=== PATIENT | male | born 1980 | race Caucasian/White ===

== ENCOUNTER → 2019-04-15 10:54 | Outpatient (BNVA) | payer MEDICARE, MEDICAID, SELFPAY | PROVIDERS: Family Provider Nurse Practitioner Family; PCP Nurse Practitioner Family; Visit Provider Family Medicine | DX: Z13.6 Encounter for screening for cardiovascular disorders (principal); R56.9 Unspecified convulsions; E03.9 Hypothyroidism, unspecified; K21.0 Gastro-esophageal reflux disease with esophagitis | CPT/HCPCS: 36415; 80053; 80061; 84443; 85025 ==

== ENCOUNTER → 2019-04-18 14:46 | Outpatient (BNVA) | payer MEDICARE, BC, MEDICAID, SELFPAY | PROVIDERS: Family Provider Nurse Practitioner Family; PCP Nurse Practitioner Family; Visit Provider Psychiatry & Neurology Psychiatry | DX: F31.9 Bipolar disorder, unspecified (principal) | CPT/HCPCS: 99204; 99214 ==

== ENCOUNTER → 2019-04-20 09:40 | Outpatient (BNVA) | payer MEDICARE, MEDICAID, SELFPAY | PROVIDERS: Family Provider Nurse Practitioner Family; PCP Nurse Practitioner Family; Visit Provider Family Medicine | DX: R73.09 Other abnormal glucose (principal) | CPT/HCPCS: 83036 ==

== ENCOUNTER 2019-05-19 13:37 | Outpatient (RCR) | payer MEDICARE, MEDICAID, SELFPAY | END 2019-06-11 23:59 | disposition home or self-care (01) | LOC: SPT 13:37 | PROVIDERS: Family Provider Nurse Practitioner Family; PCP Nurse Practitioner Family; Referring Provider Family Medicine; Visit Provider Family Medicine | DX: G89.29 Other chronic pain (principal); M25.511 Pain in right shoulder | CPT/HCPCS: 97110; 97150; 97162 ==

== ENCOUNTER 2019-06-12 06:00 | Outpatient (RCR) | payer MEDICARE, MEDICAID, SELFPAY | END 2019-07-12 23:59 | disposition home or self-care (01) | LOC: SPT 06:00 | PROVIDERS: Family Provider Family Medicine; PCP Family Medicine; Referring Provider Family Medicine; Visit Provider Family Medicine | DX: M25.511 Pain in right shoulder (principal); G89.29 Other chronic pain | CPT/HCPCS: 97110 ==

== ENCOUNTER → 2019-06-16 10:45 | Outpatient (BNVA) | payer MEDICARE, MEDICAID, SELFPAY | PROVIDERS: Family Provider Nurse Practitioner Family; PCP Nurse Practitioner Family; Visit Provider Otolaryngology | DX: H66.014 Acute suppurative otitis media with spontaneous rupture of ear drum, recurrent, right ear (principal); H66.3X1 Other chronic suppurative otitis media, right ear; H91.91 Unspecified hearing loss, right ear; J34.89 Other specified disorders of nose and nasal sinuses | CPT/HCPCS: 99214 ==

== ENCOUNTER 2019-06-23 15:08 | Outpatient (CLI) | payer MEDICARE, MEDICAID, SELFPAY ==
--- NOTE | 2019-06-23 15:30 | CT_ITS ---
WS: [id number] CT TEMPORAL BONES TECHNIQUE: Noncontrast CT of the temporal bones with coronal and sagittal reformatted images. CLINICAL INFORMATION: otitis media COMPARISON: None. DLP: 1020.[address] scans at [facility] use at least one of these dose optimization techniques: automat ed exposure control; mA and/or kV adjustment per patient size (includes targeted exams where dose is matched to clinical indication); or iterative reconstruction. FINDINGS: Paranasal sinuses are well aerated. Trace mucosal thickening in the ethmoid air cells. Maxi llary sinuses are well aerated. Nasal septum is midline. Intracranial vascular calcification. A few i ncidental intraparotid lymph nodes. Normal posterior nasopharynx. Normal pterygopalatine fossa. RIGHT: Small amount of cerumen along the external auditory canal. Right external auditory canal otherwise no rmal. 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 Mastoid air cells are well aerated today. Mild thickening and retraction of the tympanic membrane. Ossicles are normal in appearance. Middle ea r is well aerated. Normal tegmen tympani. Semicircular canals and cochlea are normal in appearance. P russak's space is normal. Normal inner ear structures. Normal vestibular aqueduct. Facial nerve reces s is normal. LEFT: Mastoid air cells are well aerated. Normal external auditory canal. Ossicles are normal in appearance . Middle ear is well aerated. Normal tegmen tympani. Semicircular canals and cochlea are normal in ap pearance. Prussak's space is normal. Normal inner ear structures. Normal vestibular aqueduct. Facial nerve recess is normal. Visualized intracranial contents and posterior fossa are normal. CT/CT temporal bone wo con* [id number] IMPRESSION: 1. 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 Bilateral mastoid air cells are well aerated today. 2. Cerumen along the right external auditory canal. Right middle ear is well a erated. Mild thickening and retraction of the right tympanic membrane. 3. Left middle ear is well aerated with normal tympanic membrane. 4. Normal ossicles and inner ear structures bilaterally. 5. Paranasal sinuses are well aerated. 6. A few incidental intraparotid lymph nodes.
== END 2019-06-23 15:09 | disposition home or self-care (01) ==
LOC: CT 15:11
PROVIDERS: Family Provider Family Medicine; PCP Family Medicine; Visit Provider Otolaryngology
DX: H66.91 Otitis media, unspecified, right ear (principal); H61.21 Impacted cerumen, right ear
CPT/HCPCS: 70480

== ENCOUNTER → 2019-06-28 14:38 | Outpatient (BNVA) | payer MEDICARE, MEDICAID, SELFPAY | PROVIDERS: Family Provider Family Medicine; PCP Family Medicine; Visit Provider Family Medicine | DX: R56.9 Unspecified convulsions (principal) | CPT/HCPCS: 80177 ==

== ENCOUNTER → 2019-07-05 13:03 | Outpatient (BNVA) | payer MEDICARE, MEDICAID, SELFPAY | PROVIDERS: Family Provider Family Medicine; PCP Family Medicine; Visit Provider Otolaryngology | DX: H93.90 Unspecified disorder of ear, unspecified ear (principal); H66.014 Acute suppurative otitis media with spontaneous rupture of ear drum, recurrent, right ear; H66.3X1 Other chronic suppurative otitis media, right ear; H91.91 Unspecified hearing loss, right ear; J34.89 Other specified disorders of nose and nasal sinuses | CPT/HCPCS: 69210; 96372; 99214; J3301 ==

== ENCOUNTER → 2019-07-11 13:08 | Outpatient (BNVA) | payer MEDICARE, MEDICAID, SELFPAY | PROVIDERS: Family Provider Family Medicine; PCP Family Medicine; Visit Provider Psychiatry & Neurology Psychiatry | DX: F31.9 Bipolar disorder, unspecified (principal) | CPT/HCPCS: 99213 ==

== ENCOUNTER → 2019-08-03 08:25 | Outpatient (BNVA) | payer MEDICARE, MEDICAID, SELFPAY | PROVIDERS: Family Provider Family Medicine; PCP Family Medicine; Visit Provider Social Worker | DX: F31.9 Bipolar disorder, unspecified (principal); F70 Mild intellectual disabilities | CPT/HCPCS: 90834 ==

== ENCOUNTER → 2019-08-09 08:28 | Outpatient (BNVA) | payer MEDICARE, MEDICAID, SELFPAY | PROVIDERS: Family Provider Family Medicine; PCP Family Medicine; Visit Provider Social Worker | DX: F31.9 Bipolar disorder, unspecified (principal); F70 Mild intellectual disabilities | CPT/HCPCS: 90834 ==

== ENCOUNTER → 2019-08-17 09:12 | Outpatient (BNVA) | payer MEDICARE, MEDICAID, SELFPAY | PROVIDERS: Family Provider Family Medicine; Visit Provider Social Worker | DX: F31.9 Bipolar disorder, unspecified (principal); F70 Mild intellectual disabilities | CPT/HCPCS: 90834 ==

== ENCOUNTER → 2019-08-29 08:34 | Outpatient (BNVA) | payer MEDICARE, MEDICAID, SELFPAY | PROVIDERS: Family Provider Family Medicine; Visit Provider Social Worker | DX: F31.9 Bipolar disorder, unspecified (principal); F70 Mild intellectual disabilities | CPT/HCPCS: 90834 ==

== ENCOUNTER 2019-09-07 18:04 | Emergency (ER) | payer MEDICARE, MEDICAID, SELFPAY ==
[2019-09-07 18:16] VITALS: BP 155/104; PULSE 85; RESP 16; TEMP 36.6; O2SAT 97; BMI 31.7
--- NOTE | 2019-09-07 18:35 | W.ED.EXTPRO ---
HPI - Extremity Problem General: Chief complaint: Extremity Injury, Lower Stated complaint: fall Time Seen by Provider: 09/07/19 18:18 History of Present Illness: HPI Narrative: Patient is a 38-year-old male who comes into the ED with left ankle pain. Patient says injury occurred just prior to arrival. Patient says he was walking his dog and his left ankle rolled and he felt a pop and was in pain. He says he has not been able to put weight on left foot since injury. He can move toes and has sensation of foot but any range of motion with left ankle is painful. Patient says the pain is a 4 out of 10 when he is sitting but any movement makes the pain a 10 out of 10. Associated symptoms: Deny chest pain, fever(s) or rash Review of Systems Const: Denies: fever(s), chills or fatigue Eyes: Denies: change in vision or eye discomfort ENMT: Denies: throat pain, odynophagia, nasal discharge or nasal congestion Card: Denies: chest pain, palpitations, edema, swelling of feet/ankles, dyspnea on exertion or orthopnea Resp: Denies: dyspnea, productive cough or non-productive cough GI: Denies: abdominal pain, nausea, vomiting, diarrhea, constipation or hematochezia : Denies: flank pain, difficulty urinating, dysuria or hematuria Musc: Reports: extremity pain (left ankle) and joint pain (left ankle); Denies: neck pain, back pain or extremity swelling Skin/Breast: Denies: rash or new lesions Neuro: Denies: headache(s), numbness in extremities or weakness in extremities PFS ED PFSH: Medical History Anxiety and depression Arthralgia of both knees Asthma Chronic otitis media Chronic right shoulder pain Chronic schizophrenia GERD (gastroesophageal reflux disease) Hearing loss Hypothyroidism Nasal vestibulitis Seizures Surgical History H/O knee surgery History of esophageal surgery got a quarter stuck in throat as a child S/P tympanostomy tube placement Social History Smoking and tobacco status: never smoked Alcohol intake: current Alcohol intake frequency: holidays/special occasions only History of recent travel: No Physical Exam Const: COMMON NORMALS: no acute distress, patient oriented x3 and alert GENERAL APPEARANCE: cooperative and comfortable HENMT: COMMON NORMALS: normocephalic HEAD & SCALP: normocephalic MOUTH: Normal oral and palatal mucosa present THROAT: posterior oropharynx normal and uvula midline Eye: COMMON NORMALS: Equal, round and reactive pupils present PUPIL: Yes Equal, round and reactive pupils present Neck/C-Spine: COMMON NORMALS: supple GENERAL: Yes normal visual inspection Resp: COMMON NORMALS: normal respiratory effort, No retractions, No use of accessory muscles and clear to auscultation bilaterally AUSCULTATION: clear to auscultation bilaterally Cardio: COMMON NORMALS: regular rate, regular rhythm, S1 normal heart sound present, S2 normal heart sound present, No gallops present (Cardio), No clicks present (Cardio), No murmurs present (Cardio) and Peripheral pulses 2+ throughout RATE: regular rate RHYTHM: regular rhythm HEART SOUNDS: S1 normal heart sound present and S2 normal heart sound present PERIPHERAL PULSES: Peripheral pulses 2+ throughout GI: COMMON NORMALS: Normal to inspection, nondistended, normoactive bowel sounds present, Soft to palpation, non-tender and no masses PALPATION: Yes Soft to palpation : COMMON NORMALS: Yes no CVA tenderness BLADDER/KIDNEY EXAM: Yes no CVA tenderness Back/Pelvis: COMMON NORMALS: no CVA tenderness Extremity: COMMON NORMALS: no pedal edema GENERAL: Yes normal exam except as noted LEFT LOWER EXTREMITY: Yes ankle joint Left ankle: Yes inspection (Mild swelling on the left foot.), Yes palpation (tender to palpation around lateral malleolus and lateral side of foot.), Yes ROM (Limited due to pain.) and Yes neurovascular exam (Intact) Neuro: COMMON NORMALS: patient oriented x3 and moves all extremities SENSORIUM/ORIENTATION: Yes alert Skin: COMMON NORMALS: no rashes or lesions noted GENERAL SKIN EXAM: no rashes or lesions noted and dry skin Course Vital Signs: Vital signs: Vital Signs Temperature 98 F 09/07/19 18:16 Pulse Rate 84 09/07/19 20:34 Respiratory Rate 18 09/07/19 20:34 Blood Pressure 137/94 09/07/19 20:34 Pulse Oximetry 96 09/07/19 20:34 MDM - Extremity (Nontraumatic) MDM Narrative: Medical decision making narrative: Patient is a 38-year-old male comes to the ED with left ankle and foot pain. Left ankle x-ray showed fifth metatarsal fracture that is nondisplaced and a avulsion fracture of the lateral malleolus. Patient was put in a boot and an orthopedic referral was placed for patient. Patient was sent home with a prescription for hydrocodone for pain. Patient given crutches to help him ambulate. Patient understood and agreed with plan. Imaging Data^: Xray Ortho: Attestation: I personally reviewed and interpreted this imaging study as follows: My impression: Left ankle x-ray shows fifth metatarsal nondisplaced fracture and possible a avulsion fracture of the lateral malleolus. Discharge Plan Discharge Patient Disposition: Home, Self-Care Clinical Impression: Metatarsal bone fracture Qualifiers: Encounter type: initial encounter Metatarsal bone: fifth Fracture type: closed Fracture alignment: nondisplaced Laterality: left Qualified Code(s): S92.355A - Nondisplaced fracture of fifth metatarsal bone, left foot, initial encounter for closed fracture Avulsion fracture of lateral malleolus of left fibula Qualifiers: Encounter type: initial encounter Fracture type: closed Qualified Code(s): S82.62XA - Displaced fracture of lateral malleolus of left fibula, initial encounter for closed fracture Condition: Stable Prescriptions: No Action hydroxyzine HCl 50 mg tablet 50 mg PO TID PRN (Reason: anxiety) Qty: 90 RF: 2 venlafaxine [Effexor XR] 75 mg capsule,extended release 24hr 75 mg PO DAILY Qty: 30 RF: 2 ibuprofen 800 mg tablet 800 mg PO TID PRN (Reason: Pain) RF: 0 acetaminophen [Tylenol Extra Strength] 500 mg tablet 500 mg PO Q4H PRN (Reason: Pain) RF: 0 levetiracetam [Keppra] 1,000 mg tablet 1,000 mg PO BID Qty: 60 RF: 2 Seroquel 300 mg tablet 300 mg PO BEDTIME RF: 0 pantoprazole 40 mg tablet,delayed release (DR/EC) 40 mg PO DAILY RF: 0 levothyroxine 50 mcg capsule 50 mcg PO DAILY RF: 0 Discharge Orders: Discharge Order (Routine); Ordered 09/07/19 Ordered By: Grover Perez Referrals: Lambert,Gauri, DO [Primary Care Provider] - Discharge Diet: Regular Discharge Activity: Limit activity as instructed Patient Instructions: Fractures - Metatarsal, Ankle Fracture (ED) Activity Restrictions/Additional Instructions: [facility] orthopedic office should be contacting you in the next several days to set up an appointment. Wear boot and use crutches to help ambulate. You can ice and elevate leg as needed. I am going to send you home with some hydrocodone to use for breakout pain. Throughout the day he use ibuprofen to help with pain. Discharge Date/Time: 09/07/19 20:38 Coding Level of Care Code ED Technical Training Specialist for Bob Fwd Exam Comprehensive
--- NOTE | 2019-09-07 18:36 | XR_ITS ---
WS: [id number] LEFT ANKLE: 3 VIEW(S) TECHNIQUE: AP, oblique(s) and lateral. HISTORY: injury with ankle pain COMPARISON: None available. Small avulsion fracture from the distal fibula. There is an additional transverse fracture through th e proximal fifth metatarsal. No joint effusion or widening of the ankle mortise. No significant degenerative changes at the joint spaces. No soft tissue abnormality. XR/XR ankle LT min 3V* [id number] IMPRESSION: 1. Small avulsion fracture from the distal fibula. 2. Nondisplaced transverse fracture proximal fifth metatarsal.
[2019-09-07] MEDS: HYDROcodone-acetaminophen 7.5-325 mg Tablet 1 TAB PO (19:47)
[2019-09-07 20:34] VITALS: BP 137/94; PULSE 84; RESP 18; O2SAT 96
--- NOTE | 2019-09-08 11:12 | DCPLANNER ---
manager hospital had message to schedule a follow up appointment with ortho. manager [facility] called the ortho clinic, spoke with Dipti, gave clinic patients information. manager hospital was told that patients information would be printed and reviewed. Clinic will call field case manager and patient with appointment information.
--- NOTE | 2019-09-13 07:51 | DCPLANNER ---
Patient had an appointment scheduled for 09.09.19 with ortho. Patient did attend the appointment.
== END 2019-09-07 20:38 | disposition home or self-care (01) ==
PROVIDERS: Emergency Provider Physician Assistant; PCP Family Medicine
DX: S92.355A Nondisplaced fracture of fifth metatarsal bone, left foot, initial encounter for closed fracture (principal); S82.62XA Displaced fracture of lateral malleolus of left fibula, initial encounter for closed fracture; X50.1XXA Overexertion from prolonged static or awkward postures, initial encounter
CPT/HCPCS: 12345; 73610; 99281; 99283; E0114

== ENCOUNTER → 2019-09-09 11:12 | Outpatient (BNVA) | payer MEDICARE, MEDICAID, SELFPAY | PROVIDERS: PCP Family Medicine; Referring Provider Physician Assistant; Visit Provider Orthopaedic Surgery | DX: S92.355A Nondisplaced fracture of fifth metatarsal bone, left foot, initial encounter for closed fracture (principal); X58.XXXA Exposure to other specified factors, initial encounter | CPT/HCPCS: 73630 ==

== ENCOUNTER → 2019-09-15 09:10 | Outpatient (BNVA) | payer MEDICARE, MEDICAID, SELFPAY | PROVIDERS: PCP Family Medicine; Visit Provider Social Worker | DX: F31.9 Bipolar disorder, unspecified (principal); F70 Mild intellectual disabilities | CPT/HCPCS: 90832 ==

== ENCOUNTER → 2019-10-04 07:50 | Outpatient (BNVA) | payer MEDICARE, MEDICAID, SELFPAY | PROVIDERS: PCP Family Medicine; Visit Provider Psychiatry & Neurology Psychiatry | DX: F31.9 Bipolar disorder, unspecified (principal) | CPT/HCPCS: 99213 ==

== ENCOUNTER → 2019-10-10 13:20 | Outpatient (BNVA) | payer MEDICARE, MEDICAID, SELFPAY | PROVIDERS: PCP Family Medicine; Visit Provider Orthopaedic Surgery | DX: S92.355D Nondisplaced fracture of fifth metatarsal bone, left foot, subsequent encounter for fracture with routine healing (principal); X58.XXXD Exposure to other specified factors, subsequent encounter | CPT/HCPCS: 73630 ==

== ENCOUNTER → 2019-10-11 08:58 | Outpatient (BNVA) | payer MEDICARE, MEDICAID, SELFPAY | PROVIDERS: PCP Family Medicine; Visit Provider Counselor Professional | DX: F31.9 Bipolar disorder, unspecified (principal) | CPT/HCPCS: 90834 ==

== ENCOUNTER → 2019-10-18 14:51 | Outpatient (BNVA) | payer MEDICARE, MEDICAID, SELFPAY | PROVIDERS: PCP Family Medicine; Visit Provider Family Medicine | DX: E03.9 Hypothyroidism, unspecified (principal) | CPT/HCPCS: 84443 ==

== ENCOUNTER → 2019-10-24 08:52 | Outpatient (BNVA) | payer MEDICARE, MEDICAID, SELFPAY | PROVIDERS: PCP Family Medicine; Visit Provider Family Medicine | DX: R56.9 Unspecified convulsions (principal) | CPT/HCPCS: 80177 ==

== ENCOUNTER → 2019-11-08 08:20 | Outpatient (BNVA) | payer MEDICAID, SELFPAY | PROVIDERS: PCP Family Medicine; Visit Provider Counselor Professional | DX: F31.9 Bipolar disorder, unspecified (principal) | CPT/HCPCS: 90834 ==

== ENCOUNTER → 2019-11-10 14:21 | Outpatient (BNVA) | payer MEDICAID, SELFPAY | PROVIDERS: PCP Family Medicine; Visit Provider Orthopaedic Surgery | DX: S92.355D Nondisplaced fracture of fifth metatarsal bone, left foot, subsequent encounter for fracture with routine healing (principal); X58.XXXA Exposure to other specified factors, initial encounter | CPT/HCPCS: 73630 ==

== ENCOUNTER → 2019-11-22 09:52 | Outpatient (BNVA) | payer MEDICAID, SELFPAY | PROVIDERS: PCP Family Medicine; Visit Provider Counselor Professional | DX: F31.31 Bipolar disorder, current episode depressed, mild (principal) | CPT/HCPCS: 90834 ==

== ENCOUNTER 2019-11-28 20:00 | Outpatient (CLI) | payer MEDICARE, MEDICAID, SELFPAY | END 2019-11-28 20:01 | disposition home or self-care (01) | LOC: SLEEP 11-29 09:26 | PROVIDERS: PCP Family Medicine; Visit Provider Family Medicine | DX: G47.33 Obstructive sleep apnea (adult) (pediatric) (principal) | CPT/HCPCS: 95810 ==

== ENCOUNTER → 2019-12-05 10:21 | Outpatient (BNVA) | payer MEDICAID, SELFPAY | PROVIDERS: PCP Family Medicine; Visit Provider Counselor Professional | DX: F31.31 Bipolar disorder, current episode depressed, mild (principal) | CPT/HCPCS: 90834 ==

== ENCOUNTER → 2019-12-29 09:01 | Outpatient (BNVA) | payer MEDICARE, MEDICAID, SELFPAY | PROVIDERS: PCP Family Medicine; Visit Provider Psychiatry & Neurology Psychiatry | DX: F31.9 Bipolar disorder, unspecified (principal) | CPT/HCPCS: 99213 ==

== ENCOUNTER 2020-01-02 09:28 | Emergency (ER) | payer MEDICARE, MEDICAID, SELFPAY ==
[2020-01-02 09:32] VITALS: BP 115/83; PULSE 81; RESP 18; TEMP 36.2; O2SAT 97; BMI 32.1
--- NOTE | 2020-01-02 09:34 | XRR_ITS ---
PROCEDURE INFORMATION: Exam: XR Right Hand Exam date and time: 01/02/2020 9:44 AM Age: 39 years old Clinical indication: Pain and injury or trauma; Injury history: Punched pole; Initial encounter; Blunt trauma (contusions or hematomas); Hand; Right; Injury date: 01/02/20 TECHNIQUE: Imaging protocol: XR Right hand. Views: 3 or more views. COMPARISON: No relevant prior studies available. FINDINGS: Bones/joints: Minimally comminuted and angulated distal 5th metacarpal fracture without intra-articular extension or dislocation. Soft tissues: Normal. XR/XR hand RT min 3V* [id number] IMPRESSION: Angulated distal 5th metacarpal fracture.
--- NOTE | 2020-01-02 09:37 | W.ED.UPPEXIN ---
HPI - Extremity Injury (Upper) General: Chief Complaint: Extremity Injury, Upper Stated Complaint: RIGHT HAND PAIN Time Seen by Provider: 01/02/20 09:31 History of Present Illness: HPI narrative: Patient complains about pain to the right hand. Said he punched telephone pole/gait last night felt immediate pain to under his knuckle areas right hand said coming this morning get evaluated MD complaint: injury to: right and hand Onset (ago): hour(s) Other Extremity Injury: Right: hand Other injuries: none Handedness: right Place: home Severity: moderate Severity scale (1-10): 5 Relieving factors: immobilization Exacerbating factors: movement of extremity Context: direct blow Associated symptoms: Reports no associated symptoms Review of Systems Const: Denies: fever(s), chills or body aches Eyes: Denies: change in vision or blurry vision ENMT: Denies: throat pain or nasal congestion Card: Denies: chest pain or dyspnea on exertion Resp: Denies: dyspnea, productive cough or non-productive cough GI: Denies: abdominal pain, nausea or vomiting : Denies: difficulty urinating Musc: Reports: extremity pain (Right hand after punching a telephone pole/gait last night) Skin/Breast: Denies: rash Neuro: Denies: headache(s) Psych: Denies: anxiety or depression Blake/Lymph: Denies: easy bruising [facility] ED PFSH: Medical History (Updated 01/02/20 @ 09:47 by ADELE Hair) Anxiety and depression Arthralgia of both knees Asthma Chronic otitis media Chronic right shoulder pain Chronic schizophrenia GERD (gastroesophageal reflux disease) Hearing loss Hypothyroidism Nasal vestibulitis Seizures Surgical History H/O knee surgery History of esophageal surgery got a quarter stuck in throat as a child S/P tympanostomy tube placement Social History Smoking and tobacco status: never smoked Alcohol intake: current Alcohol intake frequency: holidays/special occasions only History of recent travel: No Physical Exam Const: COMMON NORMALS: no acute distress Extremity: RIGHT UPPER EXTREMITY: Yes hand & digits (Swelling tenderness along the medial border right hand dorsal surface partially under the metacarpal joint #5) Psych: COMMON NORMALS: mental status grossly normal Course Vital Signs: Vital signs: Vital Signs Temperature 97.2 F L 01/02/20 09:32 Pulse Rate 71 01/02/20 10:28 Respiratory Rate 18 01/02/20 10:28 Blood Pressure 114/72 01/02/20 10:28 Pulse Oximetry 97 01/02/20 10:28 Discharge Plan Discharge Patient Disposition: Home Clinical Impression: Fracture dislocation of MCP joint Condition: Stable Prescriptions: New tramadol 50 mg tablet 50 mg PO Q6H PRN (Reason: pain) Qty: 10 RF: 0 No Action hydroxyzine HCl 50 mg tablet 50 mg PO TID PRN (Reason: anxiety) Qty: 90 RF: 2 acetaminophen [Tylenol Extra Strength] 500 mg tablet 500 mg PO Q4H PRN (Reason: Pain) RF: 0 ibuprofen 800 mg tablet 800 mg PO TID PRN (Reason: pain) RF: 0 venlafaxine [Effexor XR] 75 mg capsule,extended release 24hr 75 mg PO DAILY Qty: 30 RF: 2 Seroquel 300 mg tablet 300 mg PO BEDTIME Qty: 30 RF: 2 levothyroxine 50 mcg capsule 50 mcg PO DAILY Qty: 90 RF: 1 pantoprazole 40 mg tablet,delayed release (DR/EC) 40 mg PO DAILY Qty: 90 RF: 1 levetiracetam [Keppra] 1,000 mg tablet 1,000 mg PO BID Qty: 60 RF: 0 Discharge Orders: Discharge Order (Routine); Ordered 01/02/20 Ordered By: Jacob Tam Referrals: Gauri Centeno DO [Primary Care Provider] - Discharge Diet: Usual diet Discharge Activity: Limit activity as instructed Patient Instructions: Hand Fracture (ED) Activity Restrictions/Additional Instructions: Follow-up with medical provider as directed. Take medications as prescribed. Return to the ER or your medical provider if condition worsens. Please read and understand discharge instructions. If any questions ask please. Follow-up with Ortho as scheduled by the hospital. Wear splint. Discharge Date/Time: 01/02/20 10:34 Coding Level of Care Code ED Food And Nutrition Professor for Antoineg Fwd Exam Expanded Problem Focused
[2020-01-02] MEDS: TRAMadol 50 mg Tablet PO (10:16)
[2020-01-02 10:28] VITALS: BP 114/72; PULSE 71; RESP 18; O2SAT 97
--- NOTE | 2020-01-02 11:17 | DCPLANNER ---
client manager [employer] had message to schedule a follow up appointment for patient with ortho. client manager [employer] called the ortho clinic, spoke Pat, gave clinic patients information. client manager [employer] was told that patients information would be printed and reviewed. Clinic will call patient with appointment information.
--- NOTE | 2020-01-04 14:57 | DCPLANNER ---
Patient has a follow up appointment scheduled for Thursday, January 09, 2020 at 10:[address] León at ortho. Clinic called patient with appointment information.
--- NOTE | 2020-01-21 09:04 | DCPLANNER ---
Patient had a follow up appointment scheduled for 01.08.20 - patient did attend appointment.
== END 2020-01-02 10:34 | disposition home or self-care (01) ==
PROVIDERS: Emergency Provider Nurse Practitioner Family; PCP Family Medicine
DX: S62.396A Other fracture of fifth metacarpal bone, right hand, initial encounter for closed fracture (principal); W22.09XA Striking against other stationary object, initial encounter
CPT/HCPCS: 12345; 29125; 73130; 99281; 99282

== ENCOUNTER → 2020-01-09 11:59 | Outpatient (BNVA) | payer MEDICARE, MEDICAID, SELFPAY | PROVIDERS: PCP Family Medicine; Visit Provider Specialist | DX: G40.209 Localization-related (focal) (partial) symptomatic epilepsy and epileptic syndromes with complex partial seizures, not intractable, without status epilepticus (principal) | CPT/HCPCS: 99204 ==

== ENCOUNTER 2020-01-09 14:21 | Outpatient (CLI) | payer MEDICARE, MEDICAID, SELFPAY | END 2020-01-09 14:22 | disposition home or self-care (01) | LOC: SPT 14:22 | PROVIDERS: PCP Family Medicine; Visit Provider Orthopaedic Surgery | DX: Z47.89 Encounter for other orthopedic aftercare (principal); G89.29 Other chronic pain; M25.511 Pain in right shoulder | CPT/HCPCS: 97760; L3984 ==

== ENCOUNTER → 2020-01-31 13:08 | Outpatient (BNVA) | payer MEDICAID, SELFPAY | PROVIDERS: PCP Family Medicine; Visit Provider Orthopaedic Surgery | DX: S62.306A Unspecified fracture of fifth metacarpal bone, right hand, initial encounter for closed fracture (principal); X58.XXXA Exposure to other specified factors, initial encounter | CPT/HCPCS: 73130 ==

== ENCOUNTER → 2020-03-23 08:51 | Outpatient (BNVA) | payer MEDICARE, MEDICAID, SELFPAY | PROVIDERS: PCP Family Medicine; Visit Provider Psychiatry & Neurology Psychiatry | DX: F31.9 Bipolar disorder, unspecified (principal) | CPT/HCPCS: 99213 ==

== ENCOUNTER 2020-03-27 06:00 | Outpatient (RCR) | payer MEDICARE, MEDICAID, SELFPAY | END 2020-04-12 23:59 | disposition home or self-care (01) | LOC: SPT 06:00 | PROVIDERS: PCP Family Medicine; Referring Provider Family Medicine; Visit Provider Family Medicine | DX: M25.511 Pain in right shoulder (principal) | CPT/HCPCS: 97110; 97161 ==

== ENCOUNTER 2020-04-13 06:00 | Outpatient (RCR) | payer MEDICARE, MEDICAID, SELFPAY | END 2020-05-13 23:59 | disposition home or self-care (01) | LOC: SPT 06:00 | PROVIDERS: PCP Family Medicine; Referring Provider Family Medicine; Visit Provider Family Medicine | DX: M25.511 Pain in right shoulder (principal) | CPT/HCPCS: 97110 ==

== ENCOUNTER → 2020-05-14 13:11 | Outpatient (BNVA) | payer MEDICARE, MEDICAID, SELFPAY | PROVIDERS: PCP Family Medicine; Visit Provider Counselor Professional | DX: F31.9 Bipolar disorder, unspecified (principal) | CPT/HCPCS: 90832 ==

== ENCOUNTER → 2020-06-15 07:51 | Outpatient (BNVA) | payer MEDICARE, MEDICAID, SELFPAY | PROVIDERS: PCP Family Medicine; Visit Provider Psychiatry & Neurology Psychiatry | DX: F31.9 Bipolar disorder, unspecified (principal) | CPT/HCPCS: 99213 ==

== ENCOUNTER 2020-07-03 20:00 | Outpatient (CLI) | payer MEDICARE, MEDICAID, SELFPAY | END 2020-07-03 20:01 | disposition home or self-care (01) | LOC: SLEEP 07-04 08:46 | PROVIDERS: PCP Family Medicine; Visit Provider Family Medicine | DX: G47.33 Obstructive sleep apnea (adult) (pediatric) (principal) | CPT/HCPCS: 95811 ==

== ENCOUNTER → 2020-07-11 13:21 | Outpatient (BNVA) | payer MEDICARE, MEDICAID, SELFPAY | PROVIDERS: PCP Family Medicine; Referring Provider Specialist; Visit Provider Specialist | DX: G40.209 Localization-related (focal) (partial) symptomatic epilepsy and epileptic syndromes with complex partial seizures, not intractable, without status epilepticus (principal) | CPT/HCPCS: 99213 ==

== ENCOUNTER → 2020-08-21 15:02 | Outpatient (BNVA) | payer MEDICARE, MEDICAID, SELFPAY | PROVIDERS: PCP Family Medicine; Visit Provider Family Medicine | DX: E03.9 Hypothyroidism, unspecified (principal) | CPT/HCPCS: 84443 ==

== ENCOUNTER → 2020-09-13 12:38 | Outpatient (BNVA) | payer MEDICARE, MEDICAID, SELFPAY | PROVIDERS: PCP Family Medicine; Visit Provider Psychiatry & Neurology Psychiatry | DX: F31.9 Bipolar disorder, unspecified (principal) | CPT/HCPCS: 99213 ==

== ENCOUNTER → 2020-12-06 15:41 | Outpatient (BNVA) | payer MEDICARE, MEDICAID, SELFPAY | PROVIDERS: PCP Family Medicine; Visit Provider Psychiatry & Neurology Psychiatry | DX: F31.9 Bipolar disorder, unspecified (principal) | CPT/HCPCS: 99213 ==

== ENCOUNTER 2020-12-08 15:35 | Emergency (ER) | payer MEDICARE, MEDICAID, SELFPAY ==
[2020-12-08 15:46] VITALS: BP 126/86; PULSE 85; RESP 17; TEMP 36.9; O2SAT 94
--- NOTE | 2020-12-08 16:06 | ED_ITS ---
HPI - Neck Pain/Injury General: Chief Complaint: Neck Pain/Injury Stated Complaint: NECK PAIN Time Seen by Provider: 12/08/20 15:59 History of Present Illness: HPI Narrative: Patient is a 40-year-old male comes to the ED with neck pain. Patient says approximately 2 days ago he developed left-sided neck pain. Denies any injury or trauma to cause pain. He has been taking Tylenol 3 and ibuprofen over the past couple days to help with pain. Pain worsens when rotating his head to the left. Associated symptoms: Denies headache(s) or nausea Review of Systems Const: Denies: fever(s), chills or fatigue Eyes: Denies: change in vision or eye discomfort ENMT: Denies: throat pain, odynophagia, nasal discharge or nasal congestion Card: Denies: chest pain, palpitations, edema, swelling of feet/ankles, dyspnea on exertion or orthopnea Resp: Denies: dyspnea, productive cough or non-productive cough GI: Denies: abdominal pain, nausea, vomiting, diarrhea, constipation or hematochezia : Denies: flank pain, difficulty urinating, dysuria or hematuria Musc: Reports: neck pain; Denies: back pain or extremity swelling Skin/Breast: Denies: rash or new lesions Neuro: Denies: headache(s), numbness in extremities or weakness in extremities PFSH ED PFSH: Medical History Anxiety and depression Arthralgia of both knees Asthma Chronic otitis media Chronic right shoulder pain Chronic schizophrenia GERD (gastroesophageal reflux disease) Hearing loss Hypothyroidism Nasal vestibulitis Seizures Surgical History H/O knee surgery History of esophageal surgery got a quarter stuck in throat as a child S/P tympanostomy tube placement Social History Smoking and tobacco status: never smoked Second hand smoke exposure: No Alcohol intake: current Alcohol intake frequency: holidays/special occasions only History of recent travel: No Physical Exam Const: COMMON NORMALS: no acute distress, patient oriented x3 and alert GENERAL APPEARANCE: cooperative and comfortable HENMT: COMMON NORMALS: normocephalic HEAD & SCALP: normocephalic MOUTH: Normal oral and palatal mucosa present THROAT: posterior oropharynx normal and uvula midline Neck/C-Spine: COMMON NORMALS: supple GENERAL: Yes normal visual inspection CERVICAL SPINE: Yes pain with cervical ROM with lateral flexion to the left and with rotation to the left, No Cervical spine tenderness, Yes Paracervical muscle tenderness left and Yes Trapezius muscle tenderness left Resp: COMMON NORMALS: normal respiratory effort, No retractions, No use of accessory muscles and clear to auscultation bilaterally AUSCULTATION: clear to auscultation bilaterally Cardio: COMMON NORMALS: regular rate, regular rhythm, S1 normal heart sound present, S2 normal heart sound present, No gallops present (Cardio), No clicks present (Cardio), No murmurs present (Cardio) and Peripheral pulses 2+ throughout RATE: regular rate RHYTHM: regular rhythm HEART SOUNDS: S1 normal heart sound present and S2 normal heart sound present PERIPHERAL PULSES: Peripheral pulses 2+ throughout GI: COMMON NORMALS: Normal to inspection, nondistended, normoactive bowel sounds present, Soft to palpation, non-tender and no masses PALPATION: Yes Soft to palpation : COMMON NORMALS: Yes no CVA tenderness BLADDER/KIDNEY EXAM: Yes no CVA tenderness Back/Pelvis: COMMON NORMALS: no CVA tenderness Extremity: COMMON NORMALS: normal to inspection Neuro: COMMON NORMALS: patient oriented x3 and moves all extremities SENSORIUM/ORIENTATION: Yes alert Skin: GENERAL SKIN EXAM: dry skin Course Vital Signs: Vital signs: Vital Signs Temperature 98.5 F 12/08/20 15:46 Pulse Rate 81 12/08/20 17:02 Respiratory Rate 17 12/08/20 15:46 Blood Pressure 139/92 12/08/20 17:02 Pulse Oximetry 96 12/08/20 17:02 MDM - Neck Pain/Injury MDM Narrative: Medical decision making narrative: Patient is a 40-year-old male comes to the ED with left-sided neck pain. Denies any injury or trauma to cause pain and says just started 2 days ago. Patient has left paracervical muscle tenderness along with left trapezius muscle tenderness. No cervical spine tenderness. Patient was given a dose of Toradol and Norflex while here in the ED. He was diagnosed with left-sided neck pain and discharged home with a prescription for Celebrex and cyclobenzaprine. Return to ED precautions given. Follow-up with PCP in 7 to 10 days for reevaluation. Patient understood agree with plan. Discharge Plan Discharge Patient Disposition: Home Clinical Impression: Neck pain on left side Condition: Stable Prescriptions: New Celebrex 100 mg capsule 100 mg PO BID PRN (Reason: pain) Qty: 20 RF: 0 cyclobenzaprine 10 mg tablet 10 mg PO BID PRN (Reason: muscle spasm) Qty: 20 RF: 0 No Action levetiracetam [Keppra XR] 750 mg tablet extended release 24 hr 1,500 mg PO DAILY Qty: 60 RF: 5 Fluarix Quad (PF) 60 mcg (15 mcg x 4)/0.5 mL syringe 0.5 ml IM ONCE Qty: 0.5 RF: 0 ibuprofen 200 mg capsule 200 mg PO Q6H PRNRF: 0 Seroquel 300 mg tablet 300 mg PO BEDTIME Qty: 30 RF: 2 venlafaxine [Effexor XR] 75 mg capsule,extended release 24hr 75 mg PO DAILY Qty: 30 RF: 2 diclofenac sodium 75 mg tablet,delayed release (DR/EC) 75 mg PO BID Qty: 60 RF: 0 acetaminophen [Tylenol] 325 mg capsule 325 mg PO QID PRNRF: 0 (DME) CPAP AUTO TITRATING 8-12CM See Rx Instructions .Route .MEDSUPPLY Qty: 1 RF: 0 levothyroxine 50 mcg capsule 50 mcg PO DAILY Qty: 90 RF: 1 pantoprazole 40 mg tablet,delayed release (DR/EC) 40 mg PO DAILY Qty: 90 RF: 1 Discharge Orders: Discharge ED (Routine); Ordered 12/08/20 Ordered By: Grover Perez Referrals: Gauri Centeno DO [Primary Care Provider] - Discharge Diet: Regular Discharge Activity: Increase activity as tolerated Activity Restrictions/Additional Instructions: Follow-up with medical provider as directed in 7 to 10 days for reevaluation. Take medications as prescribed. Stretch neck muscles out daily and apply cold pack or heat on neck to help with symptoms. Cyclobenzaprine is a muscle relaxer and can cause some drowsiness so take at night before bed. Return to the ER or your medical provider if condition worsens. Please read and understand discharge instructions. Thank you for choosing [facility] for your healthcare needs today. Please realize this is an emergency room and that we are providing you with a medical screening exam and this may not be complete and all inclusive of all the testing and or work up that you may need to determine your ailment or severity of your illness. It is very important that you follow up as instructed or that you return to the Emergency Department should you have concerns or if your condition changes or worsens in any way. Coding Level of Care Code ED Quality Control Scientist for Bob Fwd Exam Comprehensive
[2020-12-08] MEDS: ketorolac 60 mg/2 mL INJ IM (16:53)
[2020-12-08] MEDS: orphenadrine 30 mg/mL Inj 2 mL 60 MG IM (16:53)
[2020-12-08 17:02] VITALS: BP 139/92; PULSE 81; O2SAT 96
== END 2020-12-08 17:06 | disposition home or self-care (01) ==
PROVIDERS: Emergency Provider Physician Assistant; PCP Family Medicine
DX: M54.2 Cervicalgia (principal); E03.9 Hypothyroidism, unspecified; J45.909 Unspecified asthma, uncomplicated
CPT/HCPCS: 96372; 99283; J1885; J2360

== ENCOUNTER → 2021-01-15 13:50 | Outpatient (BNVA) | payer MEDICARE, MEDICAID, SELFPAY | PROVIDERS: PCP Family Medicine; Visit Provider Specialist | DX: G40.209 Localization-related (focal) (partial) symptomatic epilepsy and epileptic syndromes with complex partial seizures, not intractable, without status epilepticus (principal); G40.409 Other generalized epilepsy and epileptic syndromes, not intractable, without status epilepticus | CPT/HCPCS: 99213 ==

== ENCOUNTER → 2021-02-25 15:28 | Outpatient (BNVA) | payer MEDICARE, MEDICAID, SELFPAY | PROVIDERS: PCP Family Medicine; Visit Provider Psychiatry & Neurology Psychiatry | DX: F31.9 Bipolar disorder, unspecified (principal) | CPT/HCPCS: 99204 ==

== ENCOUNTER → 2021-03-12 14:57 | Outpatient (BNVA) | payer MEDICARE, MEDICAID, SELFPAY | PROVIDERS: PCP Family Medicine; Visit Provider Family Medicine Adult Medicine | DX: E03.9 Hypothyroidism, unspecified (principal); M25.522 Pain in left elbow | CPT/HCPCS: 84443 ==

== ENCOUNTER → 2021-04-16 07:49 | Outpatient (BNVA) | payer MEDICARE, MEDICAID, SELFPAY | PROVIDERS: PCP Family Medicine; Visit Provider Psychiatry & Neurology Psychiatry | DX: F31.9 Bipolar disorder, unspecified (principal) | CPT/HCPCS: 99214 ==

== ENCOUNTER → 2021-05-27 15:20 | Outpatient (BNVA) | payer MEDICARE, MEDICAID, SELFPAY | PROVIDERS: PCP Family Medicine; Visit Provider Psychiatry & Neurology Psychiatry | DX: F31.9 Bipolar disorder, unspecified (principal) | CPT/HCPCS: 99213 ==

== ENCOUNTER → 2021-08-19 14:41 | Outpatient (BNVA) | payer MEDICARE, MEDICAID, SELFPAY | PROVIDERS: PCP Family Medicine; Visit Provider Psychiatry & Neurology Psychiatry | DX: F31.9 Bipolar disorder, unspecified (principal); M25.522 Pain in left elbow | CPT/HCPCS: 99213 ==

== ENCOUNTER 2021-09-15 14:35 | Inpatient (IN) | payer MEDICARE, MEDICAID, SELFPAY ==
[2021-09-15 14:37] VITALS: BP 140/96; PULSE 105; RESP 16; TEMP 37.2; O2SAT 98; BMI 34.5
--- NOTE | 2021-09-15 14:44 | ED_ITS ---
HPI - General Adult General: Chief complaint: Psychiatric Symptoms Stated complaint: attempted to kill self Time Seen by Provider: 09/15/21 14:41 History of Present Illness: HPI: [40]yo patient w/ hx of depression presenting after holding a knife against his L wrist. Patient reports that he was feeling depressed and was about to cut his wrist. Patient denies any significant bleeding. On arrival, the patient is AAOx3 and cooperative with my evaluation. No focal complaints of chest pain, shortness of breath, palpitations, N/V, focal GI/ complaints. Currently denies HI. No complaints of hallucinations. Onset: acute on chronic Duration: ongoing Location: home Severity: severe Associated symptoms: Deny chest pain, dyspnea, nausea, palpitations or vomiting Review of Systems Const: Denies: fever(s) or chills Eyes: Denies: change in vision ENMT: Denies: mouth pain Card: Denies: chest pain or palpitations Resp: Denies: dyspnea or non-productive cough GI: Denies: abdominal pain, nausea, vomiting or diarrhea : Denies: dysuria Musc: Denies: extremity pain Skin/Breast: Reports: new lesions (+L volar wrist cut) Neuro: Denies: weakness in extremities Psych: Reports: depression and suicidal ideation Blake/Lymph: Denies: easy bruising PFSH ED PFSH: Medical History Anxiety and depression Arthralgia of both knees Asthma Chronic otitis media Chronic right shoulder pain Chronic schizophrenia GERD (gastroesophageal reflux disease) Hearing loss Hypothyroidism Influenza vaccine administered Nasal vestibulitis Pain in joint of left elbow Psychiatric care Surgical History H/O knee surgery History of esophageal surgery got a quarter stuck in throat as a child S/P tympanostomy tube placement Social History Smoking and tobacco status: never smoked Second hand smoke exposure: No Alcohol intake: current Alcohol intake frequency: holidays/special occasions only History of recent travel: No Physical Exam Const: COMMON NORMALS: alert HENMT: COMMON NORMALS: atraumatic HEAD & SCALP: atraumatic MOUTH: moist mucous membranes not abnormal Eye: COMMON NORMALS: EOMs intact bilaterally and conjunctivae normal CONJUNCTIVA: Yes conjunctivae normal Neck/C-Spine: COMMON NORMALS: full ROM and supple Resp: COMMON NORMALS: normal respiratory effort and clear to auscultation bilaterally AUSCULTATION: clear to auscultation bilaterally Cardio: COMMON NORMALS: regular rate RATE: regular rate GI: COMMON NORMALS: Soft to palpation and non-tender PALPATION: Yes Soft to palpation Extremity: COMMON NORMALS: full ROM Neuro: SENSORIUM/ORIENTATION: Yes alert MOTOR EXAM: No Abnormal motor strength present and Other motor observations present (no focal motor deficits) Psych: COMMON NORMALS: speech normal SPEECH: Yes normal speech MOOD & AFFECT: Yes depressed mood Skin: NARRATIVE SKIN EXAM: +L wrist volar linear abrasion Course Vital Signs: Vital signs: Vital Signs Temperature 99 F 09/15/21 14:37 Pulse Rate 105 H 09/15/21 14:37 Respiratory Rate 16 09/15/21 14:37 Blood Pressure 140/96 09/15/21 14:37 Pulse Oximetry 98 09/15/21 14:37 MDM - General Adult Medical Decision Making [40]yo patient w/ hx of depression presenting for SI with self-harm (cutting of wrist)}. HDS, exam within normal limit Thoughts are linear and organized, and the patient has no AH/VH, or HI. Clinically the patient displays no overt toxidrome; they are well appearing, with low suspicion for toxic ingestion given history and exam. Symptoms unlikely 2/2 anemia, hypothyroidism, infection, or ICH. Workup: CBC, CMP, Lipase, salicylate/tylenol, UDS Lab findings: wnl [3:30pm] On reassessment, labs and workup wnl. Patient is hemodynamically stable with no acute medical complaints. Case discussed with psychiatric provider Dr. Galvan at [facility] psych inpatient with recommendation for admission Disposition: Psych Discharge Plan Discharge Patient Disposition: Admitted As Inpatient Clinical Impression: Depression, Suicide attempt Condition: Stable Coding Level of Care Code ED [employer] for [facility] Exam Comprehensive
--- NOTE | 2021-09-15 14:59 | PC.NURSE ---
Patient is changed into paper scrubs. Valuables were taken and placed in cabinet next to psych room. Patient is calm. Speech is at a normal rate, normal volume, and normal amount.
[2021-09-15 15:04] LABS: Basophils % 0.3 %; Eosinophils # 0.1 10^3/uL (0.0-0.8); Eosinophils % 1.3 %; Lymphocytes # 1.7 10^3/uL (0.8-4.8); Lymphocytes % 27.5 %; Mean Corpuscular HGB Conc 35.4 g/dL (30.0-36.0); Mean Corpuscular Volume 84.8 fl (80-94); Mean Platelet Volume 11.3 fL (7.4-10.4); Monocytes # 0.7 10^3/uL (0.2-0.9); Monocytes % 11.3 %; Neutrophils # 3.71 10^3/uL (1.8-7.7); Neutrophils % 59.3 %; Nucleated Red Blood Cells % 0 %; Platelet Count 246 10^3/cmm (130-400); Red Blood Count 5.66 10^6/uL (4.1-5.3); Red Cell Distribution Width 12.4 % (12.1-15.1); White Blood Count 6.3 10^3/uL (4.0-10.0)
[2021-09-15 15:23] LABS: Alanine Aminotransferase 68 U/L (0-41); Albumin Level 4.7 g/dL (3.5-5.2); Alkaline Phosphatase 168 IU/L (40-130); Anion Gap 16.1 (5-19); Aspartate Amino Transferase 35 U/L (0-40); Blood Urea Nitrogen 8 mg/dL (6-20); Calcium 9.6 mg/dL (8.5-10.5); Carbon Dioxide 21 mmol/L (22-29); Chloride 103 mmol/L (98-107); Creatinine Clr Calc Pharmacy 173.7655; Globulin 2.9 g/dL (1.3-4.6); Glomerular Filtration Rate 108.2 mL/min (90-130); Glucose 155 mg/dL (65-115); Lipase 33 U/L (13-60); Osmolality Calculated 283 mOsm/kg (285-295); Potassium 4.1 mmol/L (3.5-5.1); Sodium 136 mmol/L (136-145); Total Bilirubin 0.6 mg/dL (0.15-1.2); Total Protein 7.6 g/dL (6.6-8.7)
[2021-09-15 16:01] LABS: Acetaminophen < 5.0 ug/mL (10-30)
--- NOTE | 2021-09-15 16:22 | PC.NURSE ---
Report called to [facility] and neuropsych.
[2021-09-15 16:49] VITALS: RESP 16
[2021-09-15 16:57] VITALS: BMI 34.5
[2021-09-15 17:00] VITALS: BP 141/93; PULSE 83; RESP 18; TEMP 36.6; O2SAT 94
[2021-09-15 20:47] VITALS: BP 131/89; PULSE 75; RESP 16; TEMP 36.6; O2SAT 97
[2021-09-15] MEDS: quetiapine 300 mg Tablet PO (20:50)
[2021-09-15] MEDS: BuSPIRONE 10 mg Tablet 5 MG PO (21:52)
[2021-09-15] MEDS: levETIRAcetam 500 mg Tablet 750 MG PO (21:52)
[2021-09-16 06:00] VITALS: BP 112/67; PULSE 62; RESP 16; TEMP 36.7; O2SAT 95
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
[2021-09-16] MEDS: levETIRAcetam 500 mg Tablet 750 MG PO ×2 (09:06→20:32)
[2021-09-16] MEDS: venlafaxine ER (24HR) 75 mg Capsule 150 MG PO (09:06)
[2021-09-16] MEDS: pantoprazole DR 40 mg Tablet PO (09:06)
[2021-09-16] MEDS: levothyroxine 50 mcg Tablet PO (09:07)
[2021-09-16] MEDS: BuSPIRONE 10 mg Tablet PO ×2 (09:07→20:32)
[2021-09-16] MEDS: hyDROXYzine 25 mg Capsule 50 MG PO (11:47)
[2021-09-16 14:00] VITALS: BP 126/72; PULSE 76; RESP 16; TEMP 36.8; O2SAT 98
[2021-09-16 16:52] LABS: Amphetamines Screen Urine Negative (Negative); Barbiturates Screen Urine Negative (Negative); Benzodiazepines Screen Urine Negative (Negative); Cocaine Screen Urine Negative (Negative); Opiate Screen Urine Negative (Negative); PCP Screen Urine Negative (Negative); THC Screen Urine Negative (Negative)
[2021-09-16 19:34] VITALS: BP 137/77; PULSE 70; RESP 16; TEMP 36.5; O2SAT 98
[2021-09-16] MEDS: quetiapine 300 mg Tablet PO (20:33)
[2021-09-17 06:00] VITALS: BP 111/50; PULSE 74; RESP 20; TEMP 36.8; O2SAT 98
[2021-09-17] MEDS: levETIRAcetam 500 mg Tablet 750 MG PO ×2 (09:00→20:26)
[2021-09-17] MEDS: venlafaxine ER (24HR) 75 mg Capsule 150 MG PO (09:01)
[2021-09-17] MEDS: BuSPIRONE 10 mg Tablet PO ×2 (09:01→20:26)
[2021-09-17] MEDS: levothyroxine 50 mcg Tablet PO (09:01)
[2021-09-17] MEDS: pantoprazole DR 40 mg Tablet PO (09:01)
--- NOTE | 2021-09-17 12:34 | W.PM.NPUPNS ---
Subjective NPU Subjective: He says that he feels much better. His mind is more clear. He denies any suicidal ideations or hallucinations. He thinks it is probably just being here being able to relax and being away from the stress. He is not sure if the medication changes have had a chance to do anything so far but he is not having any side effects. He feels like he will probably be ready to leave tomorrow. Mental Status Exam MSE Comments: This is an obese 40-year-old male who appears approximately his stated age and is in no acute distress. He has several days' growth of graham and dressed in hospital scrubs. Eye contact is fairly good. He was pleasant and cooperative with the evaluation. psychomotor activity is normal. Speech is at a regular rate and rhythm, normal volume, good articulation, not pressured. Alert, oriented X3 Attention and concentration appear to be normal. Memory is intact Mood is good. Affect is euthymic. Thought process is logical and goal-directed. Thought content: Denies auditory and visual hallucinations. No delusions or paranoia are noted. No current suicidal ideation. He denies homicidal ideation. Fund of knowledge is average. Insight and judgment appear to be fair. Impulse control is fair. Cognition: Patient Appearance: Appropriate Level of Consciousness: Awake, Alert and Appropriate Patient Cognition Impaired: No Ability to Follow Directions: Good Patient Orientation (long list): Person, Place, Time, Name, Age, Birthday, Month, Time of Day and Year Comprehension Ability: No Impairment Hallucination Type: None Delusion Description: Not Present Thought Process: Appropriate and Logical Affect: Affect Description: Calm Depressive Symptoms: Crying Spells, Difficulty Concentrating, Difficulty Making Decisions, Feelings of Guilt, Increased Anxiety and Significant Weight Loss Behavior: Patient Behavior: Cooperative Speech Pattern: Clear Vitals/I&O/Wt Last Vital Signs Temp 98.3 F 09/17/21 06:00 Pulse 74 09/17/21 06:00 Resp 20 H 09/17/21 06:00 BP 111/50 09/17/21 06:00 Pulse Ox 98 09/17/21 06:00 Weight last 48 hrs Weight 122.016 kg Weight 122.016 kg Data NPU : 09/15/21 14:56 09/15/21 14:56 A&P Assessment and plan (1) Depression: Status: Acute (2) Bipolar 1 disorder: Status: Acute (3) Hypothyroidism: Status: Acute Qualifiers: Hypothyroidism type: acquired Qualified Code(s): E03.9 - Hypothyroidism, unspecified (4) TYLER (obstructive sleep apnea): Status: Acute (5) Secondarily generalized seizures: Status: Acute Plan This is a 40-year-old male with bipolar 1 disorder treated in our outpatient clinic who reports increased stress and depression because of life circumstances recently. Plan: 1. Continue current medication. Increase Effexor to 150 mg daily and BuSpar to 10 mg twice a day. 2. Continue every 15 minute checks for safety. 3. Encourage individual, group and milieu therapies. 4. Encourage sober living treatment after discharge at the highest level of care to which he is willing to commit. 5. We will monitor for safety for himself in the community prior to discharge. Involuntary Hold Information 96 Hour Hold: 96 Hour Involuntary Admission: No Attestations NPU Medical Necessity Statement*: Inpatient hospitalization is medically necessary and the clinically appropriate intervention at this time. We will initiate medications and make changes as indicated. Coding Level of Care Code Acute [facility] Diagnoses Depression F32.A Bipolar 1 disorder F31.9 Hypothyroidism E03.9 Hypothyroidism type: acquired TYLER (obstructive sleep apnea) G47.33 Secondarily generalized seizures
[2021-09-17 14:00] VITALS: BP 115/77; PULSE 80; RESP 17; TEMP 36.8; O2SAT 97
[2021-09-17] MEDS: hyDROXYzine 25 mg Capsule 50 MG PO (15:24)
--- NOTE | 2021-09-17 15:24 | PC.NURSE ---
PRN VISTARIL 50 MG GIVEN PO PER PT C/O STATED ANXIETY
[2021-09-17 20:11] VITALS: BP 141/86; PULSE 80; RESP 16; TEMP 36.9; O2SAT 97
[2021-09-17] MEDS: quetiapine 300 mg Tablet PO (20:26)
[2021-09-18 06:00] VITALS: BP 98/69; PULSE 68; RESP 17; TEMP 36.6; O2SAT 96
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
[2021-09-18 07:59] VITALS: BP 98/69; PULSE 68; RESP 17; TEMP 36.6; O2SAT 96
--- NOTE | 2021-09-18 08:40 | DCPLANNER ---
IMM completed with pt on 09/18/21 @ 0420. Pt was given a copy of rights and stated he understood his rights.
[2021-09-18] MEDS: levETIRAcetam 500 mg Tablet 750 MG PO (09:15)
[2021-09-18] MEDS: pantoprazole DR 40 mg Tablet PO (09:15)
[2021-09-18] MEDS: BuSPIRONE 10 mg Tablet PO (09:15)
[2021-09-18] MEDS: venlafaxine ER (24HR) 75 mg Capsule 150 MG PO (09:15)
[2021-09-18] MEDS: levothyroxine 50 mcg Tablet PO (09:15)
== END 2021-09-18 09:18 | disposition home or self-care (01) | DRG 885 ==
LOC: ER 14:43 → NP 15:51
PROVIDERS: Admitting Provider Psychiatry & Neurology Psychiatry; Emergency Provider Emergency Medicine; PCP Family Medicine; Visit Provider Psychiatry & Neurology Psychiatry
DX: F31.9 Bipolar disorder, unspecified (principal); R45.851 Suicidal ideations; F41.8 Other specified anxiety disorders; E03.9 Hypothyroidism, unspecified; G47.33 Obstructive sleep apnea (adult) (pediatric)
CPT/HCPCS: 36415; 80053; 80306; 80307; 83690; 85025; 97150; 97165; 99285

== ENCOUNTER → 2021-09-24 11:48 | Outpatient (BNVA) | payer MEDICARE, MEDICAID, SELFPAY | PROVIDERS: PCP Family Medicine; Visit Provider Psychiatry & Neurology Psychiatry | DX: M25.522 Pain in left elbow (principal); F31.9 Bipolar disorder, unspecified | CPT/HCPCS: 99213 ==

== ENCOUNTER → 2021-10-11 11:18 | Outpatient (BNVA) | payer MEDICARE, MEDICAID, OTHER, SELFPAY | PROVIDERS: PCP Family Medicine; Visit Provider Psychiatry & Neurology Psychiatry | DX: M25.522 Pain in left elbow (principal); F31.9 Bipolar disorder, unspecified | CPT/HCPCS: 99214 ==

== ENCOUNTER → 2021-11-19 15:45 | Outpatient (BNVA) | payer MEDICARE, MEDICAID, SELFPAY | PROVIDERS: PCP Family Medicine; Visit Provider Family Medicine | DX: E03.9 Hypothyroidism, unspecified (principal); Z13.6 Encounter for screening for cardiovascular disorders | CPT/HCPCS: 80053; 80061; 84443 ==

== ENCOUNTER 2022-01-08 12:06 | Emergency (ER) | payer MEDICARE, MEDICAID, SELFPAY ==
[2022-01-08 12:20] VITALS: BP 140/87; PULSE 90; RESP 14; TEMP 36.6; O2SAT 98; BMI 34.5
--- NOTE | 2022-01-08 12:32 | W.ED.NECK ---
HPI - Neck Pain/Injury General: Chief Complaint: Neck Pain/Injury Stated Complaint: neck pain Time Seen by Provider: 01/08/22 12:30 History of Present Illness: 41-year-old male patient comes in today with an episode of fainting. Patient reports last night he had got up to go to the bathroom and then on his way back from the bathroom he passed out hitting the left side of his head against a door frame. Patient reports an episode of loss of consciousness. Patient denies any severe headache at this time. Patient does have some bruising to the left facial cheek periorbital region. Patient appears nontoxic. Patient appears in mild pain. Patient reports numbness and tingling to the right upper extremity. Associated symptoms: Denies headache(s) or nausea Review of Systems General: Reports: 10 or more systems reviewed and unremarkable except in HPI and below Const: Denies: fever(s) Card: Denies: chest pain Resp: Denies: dyspnea GI: Denies: nausea or vomiting Musc: Reports: neck pain and extremity pain Skin/Breast: Denies: rash Neuro: Denies: headache(s) PFSH ED PFSH: Medical History Anxiety and depression Arthralgia of both knees Asthma Chronic otitis media Chronic right shoulder pain Chronic schizophrenia GERD (gastroesophageal reflux disease) Hearing loss Hypothyroidism Influenza vaccine administered Nasal vestibulitis Pain in joint of left elbow Psychiatric care Surgical History H/O knee surgery History of esophageal surgery got a quarter stuck in throat as a child S/P tympanostomy tube placement Social History Smoking and tobacco status: never smoked Second hand smoke exposure: No Smoking risk assessment/counseling performed?: No Alcohol intake: current Alcohol intake frequency: few times a month Alcohol type: beer Desire information about alcohol rehabilitation?: No Counseling given: No Desire information about substance/drug rehabilitation?: No Counseling given: No History of recent travel: No Physical Exam Const: COMMON NORMALS: patient oriented x3 HENMT: COMMON NORMALS: TM's normal bilaterally HEAD & SCALP: contusion (Bruising to the left facial cheek) and laceration (Superficial laceration to the left periorbital region); no palpable skull fracture TYMPANIC MEMBRANE: TM's normal bilaterally THROAT: posterior oropharynx normal Neck/C-Spine: CERVICAL SPINE: No Cervical spine tenderness and Yes Paracervical muscle tenderness Resp: COMMON NORMALS: normal respiratory effort and clear to auscultation bilaterally AUSCULTATION: clear to auscultation bilaterally Cardio: COMMON NORMALS: regular rate and regular rhythm RATE: regular rate RHYTHM: regular rhythm GI: COMMON NORMALS: non-tender Back/Pelvis: COMMON NORMALS: thoracic and lumbar spine normal to inspection Extremity: COMMON NORMALS: normal to inspection Neuro: COMMON NORMALS: patient oriented x3 Skin: TRAUMA: laceration (Left facial cheek.) Course Vital Signs: Vital signs: Vital Signs Temperature 97.8 F 01/08/22 12:20 Pulse Rate 83 01/08/22 12:59 Respiratory Rate 16 01/08/22 12:59 Blood Pressure 130/91 01/08/22 12:59 Pulse Oximetry 98 01/08/22 12:59 Oxygen Delivery Me thod 01/08/22 12:59 MDM - Neck Pain/Injury Medical Decision Making 41-year-old male patient comes in today for evaluation of injury after a fall. Patient reports passing out last night and striking his left side of the face against a door jam. Patient was concerned about numbness and tingling in the right arm. On exam patient has some bruising and swelling with a superficial laceration to the left facial cheek/periorbital area. Vital signs are normal. Differential diagnosis includes contusion, fracture, intracranial bleeding, interval vertebral disc disease, facet arthropathy. CT of the head and face noted no acute fractures or intracranial bleeding. CT of the cervical spine did note some degenerative changes with some mild to moderate stenosis. Recommend patient follow-up with orthopedic public finance specialist due to the radiculopathy and neuralgia in the right arm. Patient agreed to plan. Recommend acetaminophen and ibuprofen for pain and follow-up with primary care for further instructions. Patient stated understanding and agreed to plan. Lab Data Radiology Impressions Cervical Spine CT 01/08/22 12:40 IMPRESSION: 1. No acute cervical fracture. 2. Multi level areas of stenoses as described above. Predominantly due to hypertrophic osteophyte formation with a few disc protrusions. Face CT 01/08/22 12:40 IMPRESSION: 1. No facial bone fracture. 2. Mild soft tissue hematoma and induration centered over the LEFT maxillary sinus and zygomatic arch. Head CT 01/08/22 12:40 IMPRESSION: Negative head CT. Discharge Plan Discharge Patient Disposition: Home Clinical Impression: Cervical radiculopathy Fall Qualifiers: Encounter type: initial encounter Qualified Code(s): W19.XXXA - Unspecified fall, initial encounter Facial contusion Qualifiers: Encounter type: initial encounter Qualified Code(s): S00.83XA - Contusion of other part of head, initial encounter Condition: Stable Prescriptions: No Action levetiracetam [Keppra XR] 750 mg tablet extended release 24 hr 1,500 mg PO DAILY 90 Days Qty: 180 3RF hydroxyzine HCl 50 mg tablet 50 mg PO QID PRN (Reason: insomnia) Qty: 120 2RF tizanidine 2 mg tablet 2 mg PO Q8H PRN (Reason: muscle spasticity) Qty: 90 0RF acetaminophen [Tylenol] 325 mg capsule 325 mg PO QID PRN (Reason: Pain) montelukast [Singulair] 10 mg tablet 10 mg PO DAILY Qty: 30 0RF cefdinir 300 mg capsule 300 mg PO BID Qty: 20 0RF Seroquel 300 mg tablet 300 mg PO BEDTIME Qty: 90 0RF (DME) CPAP AUTO TITRATING 8-12CM See Rx Instructions .Route .MEDSUPPLY Qty: 1 0RF Rx Instructions: As directed venlafaxine 75 mg capsule,extended release 24hr 150 mg PO DAILY 30 Days Qty: 60 2RF buspirone 10 mg tablet 10 mg PO 0900,2100 30 Days Qty: 60 2RF Celebrex 100 mg capsule 100 mg PO BID PRN (Reason: pain) Qty: 180 1RF Rx Instructions: Take with food pantoprazole 40 mg tablet,delayed release (DR/EC) 40 mg PO DAILY Qty: 90 1RF levothyroxine 50 mcg tablet 50 mcg PO DAILY Qty: 90 1RF Rx Instructions: Take 1 tablet by mouth once daily levetiracetam 750 mg tablet extended release 24 hr 750 mg PO BID Discharge Orders: Discharge ED (Routine); Ordered 01/08/22 Ordered By: Shashi James Referrals: Gauri Centeno DO [Primary Care Provider] - Discharge Diet: Usual diet Discharge Activity: Increase activity as tolerated Patient Instructions: Cervical Radiculopathy (ED) Activity Restrictions/Additional Instructions: Use acetaminophen or ibuprofen for pain and discomfort. Activity as tolerated. Follow-up with primary care as needed. Case management will contact you regarding follow-up appointment with spinal specialist for further treatment and evaluation. Return to ER for new concerns. Coding Level of Care Code ED Secretary Office Clerk for Bob Fwsilvano Exam Comprehensive
--- NOTE | 2022-01-08 12:40 | CT_ITS ---
WS: [id number] CT CERVICAL SPINE HISTORY: fall injury TECHNIQUE: Contiguous 2.5 mm axial imaging performed through the entire cervical spine. Sagittal and coronal reformats also performed. All CT scans at [facility] use at least one of these dose o ptimization techniques: automated exposure control; mA and/or kV adjustment per patient size (include s targeted exams where dose is matched to clinical indication); or iterative reconstruction. DLP: 300.67 mGy.cm COMPARISON: None available. Mild straightening of the normal cervical lordosis. Disc spaces are mildly narrowed. Hypertrophic end plate osteophytes from C2 to C7. No fractures. Craniocervical junction is normally aligned. Lateral m asses of C1 and C2 are aligned. C2-C3: LEFT paracentral disc protrusion causing mild narrowing of the LEFT foramen. C3-C4: Osteophytic ridging encroaching upon the cervical canal. LEFT sided encroachment by osteophyte with moderate LEFT foraminal stenosis. C4-C5: Mild osteophytic ridging and disc bulging asymmetric to the LEFT. Mild deformity the LEFT late ral cervical cord with moderate LEFT foraminal narrowing. C5-C6: Diffuse osteophytic ridging encroaching upon the ventral thecal sac. There is at least moderat e central and LEFT foraminal stenosis. Mild stenosis on the RIGHT. C6-C7: Osteophytic ridging encroaching upon the RIGHT lateral cervical cord. C7-T1: Normal. T1-2: Osteophytic ridging encroaching upon the thecal sac bilaterally. CT/CT cervical spin wo con* [id number] IMPRESSION: 1. No acute cervical fracture. 2. Multi level areas of stenoses as described above. Predominantly due to hype rtrophic osteophyte formation with a few disc protrusions.
--- NOTE | 2022-01-08 12:40 | CT_ITS ---
WS: [id number] CT HEAD NONCONTRAST HISTORY: injury TECHNIQUE: Contiguous axial imaging performed through the brain in 2.5 mm imaging. Bone and soft tiss ue windows. Sagittal and coronal reformats reviewed. All CT scans at [facility] use at least one of these dose optimization techniques: automated exposure control; mA and/or kV adjustment per pa tient size (includes targeted exams where dose is matched to clinical indication); or iterative recon struction. DLP: 1213.48 mGy.cm COMPARISON: None available. No acute intracranial hemorrhage, midline shift or mass effect. No atrophy or prior infarcts or herniation. Ventricles: Normal size with no hydrocephalus. No inferior displacement of the cerebellar tonsils. Paranasal sinuses: As visualized are clear. Mastoid air cells: Well pneumatized. Calvarium and scalp: Skull is intact with no soft tissue edema or swelling. CT/CT head wo con* [id number] IMPRESSION: Negative head CT.
--- NOTE | 2022-01-08 12:40 | CT_ITS ---
WS: [id number] CT FACIAL BONES HISTORY: fall injury, left facial injury TECHNIQUE: Images obtained from the supraorbital location through the mandible. Soft tissue and bone windows are reviewed. Coronal and sagittal reformats have also been submitted. DLP: 635.[address] scans at [facility] use at least one of these dose optimization techniques: automated e xposure control; mA and/or kV adjustment per patient size (includes targeted exams where dose is matc hed to clinical indication); or iterative reconstruction. COMPARISON: None available. No facial bone fractures are identified. Nasal bones and zygomatic arch are intact. No air-fluid leve ls within the sinus cavities. Normal appearance of the mandibular condyles. Upper cervical spine is n egative. Mild soft tissue induration centered over the LEFT maxillary sinus and anterior zygomatic arch. CT/CT facial bones wo con* [id number] IMPRESSION: 1. No facial bone fracture. 2. Mild soft tissue hematoma and induration centered over the LEFT maxillary s inus and zygomatic arch.
[2022-01-08 12:59] VITALS: BP 130/91; PULSE 83; RESP 16; O2SAT 98
--- NOTE | 2022-01-08 15:10 | DCPLANNER ---
Addendum entered by Susan Mendoza 04/11/22 14:12: Patient had a follow up appointment scheduled with ortho - patient did attend appointment. Addendum entered by Susan Mendoza 01/09/22 11:23: Patient has a follow up appointment scheduled for , January 16, 2022 at 2:30 with Sampson Ty at ortho. Clinic will call patient with appointment information. Original Note: district manager major accounts sales had message to schedule a follow up appointment for patient with ortho. district manager major accounts sales sent patients information to the front office staff at ortho. Patients information will be printed and reviewed. Clinic will call patient with appointment information.
== END 2022-01-08 14:09 | disposition home or self-care (01) ==
PROVIDERS: Emergency Provider Nurse Practitioner Family; PCP Family Medicine
DX: M54.12 Radiculopathy, cervical region (principal); S01.412A Laceration without foreign body of left cheek and temporomandibular area, initial encounter; S00.83XA Contusion of other part of head, initial encounter; W18.39XA Other fall on same level, initial encounter
CPT/HCPCS: 70450; 70486; 72125; 99284

== ENCOUNTER → 2022-01-16 14:33 | Outpatient (BNVA) | payer MEDICARE, MEDICAID, SELFPAY | PROVIDERS: PCP Family Medicine; Referring Provider Nurse Practitioner Family; Visit Provider Physician Assistant | DX: M47.22 Other spondylosis with radiculopathy, cervical region (principal); M50.30 Other cervical disc degeneration, unspecified cervical region | CPT/HCPCS: 72050; 99203 ==

== ENCOUNTER 2022-02-26 12:34 | Outpatient (CLI) | payer MEDICARE, MEDICAID, SELFPAY ==
--- NOTE | 2022-02-26 13:00 | MR_ITS ---
WS: [id number] MRI CERVICAL SPINE NONCONTRAST HISTORY: neck pain, RIGHT arm pain after fall. COMPARISON: Cervical spine CT 01/08/2022 Technique: Multiplanar, multisequence noncontrast imaging of the cervical spine. Straightening of the normal cervical lordosis. No acute marrow edema or fracture. Osteophytes and dis c protrusions encroach upon the ventral thecal sac most significant at C3-4 through C5-6. Very slight increased signal in the RIGHT lateral cervical cord at C3-4 may be early myelomalacia. Vi sualized posterior fossa is unremarkable. Craniocervical junction, C1 and C2 relationship, odontoid process and soft tissues are normal. C2-C3: Mild encroachment upon the ventral thecal sac. No stenosis. C3-C4: Moderate osteophytic ridging with annular disc bulging. Central and LEFT foraminal disc protru sions with annular fissures. Complete effacement of CSF ventrally. Moderate central and bilateral for aminal stenosis. Slightly greater LEFT foraminal stenosis. Mild facet arthritis. C4-C5: Diffuse osteophytic ridging with annular disc bulging and facet joint arthritis. Mild central and bilateral foraminal stenosis. C5-C6: Marked osteophytic ridging with annular disc bulging and disc protrusions. Moderate-sized RIGH T paracentral disc protrusion. This is an additional disc osteophyte in the LEFT foramen causing post erior displacement of the nerve roots. Severe central and bilateral foraminal stenosis. C6-C7: Diffuse osteophytic ridging and annular disc bulging. RIGHT paracentral disc protrusion contac ting the RIGHT lateral thecal sac. Moderate central and LEFT foraminal stenosis. Severe RIGHT foramin al stenosis. Mild facet arthritis. C7-T1: Mild facet joint narrowing. At T1-2 and T2-3 there are very small central to LEFT paracentral disc protrusions and osteophytes co ntacting the thecal sac. No high-grade stenosis. Paraspinal soft tissue are normal. MR/MR cervical spin wo con* [id number] IMPRESSION: 1. Multilevel central and foraminal stenosis. Stenoses due to combination of o steophytic ridging, disc disease and facet arthritis. 2. Moderate central and bilateral foraminal stenosis, LEFT greater than RIGHT at C3-4. 3. Severe central and bilateral foraminal stenoses at C5-6. Moderate-sized RIG HT paracentral disc protrusion and LEFT foraminal disc osteophyte. 4. Moderate central and LEFT foraminal stenosis at C6-7. Severe RIGHT foramina l stenosis due to paracentral disc osteophyte at C6-7. 5. Suspect very subtle myelomalacia in the cervical cord at C3-4.
== END 2022-02-26 12:35 | disposition home or self-care (01) ==
LOC: RAD 12:35
PROVIDERS: PCP Family Medicine; Visit Provider Physician Assistant
DX: M48.02 Spinal stenosis, cervical region (principal); M25.78 Osteophyte, vertebrae; G40.209 Localization-related (focal) (partial) symptomatic epilepsy and epileptic syndromes with complex partial seizures, not intractable, without status epilepticus
CPT/HCPCS: 72141; 99214

== ENCOUNTER → 2022-04-01 10:45 | Outpatient (BNVA) | payer MEDICARE, MEDICAID, SELFPAY | PROVIDERS: PCP Family Medicine; Visit Provider Physician Assistant | DX: M47.22 Other spondylosis with radiculopathy, cervical region (principal); M54.12 Radiculopathy, cervical region; M50.30 Other cervical disc degeneration, unspecified cervical region | CPT/HCPCS: 99214 ==

== ENCOUNTER 2022-04-01 14:04 | Outpatient (CLI) | payer MEDICARE, MEDICAID, SELFPAY | END 2022-04-01 14:05 | disposition home or self-care (01) | LOC: SPT 14:07 | PROVIDERS: PCP Family Medicine; Visit Provider Physician Assistant | DX: Z46.89 Encounter for fitting and adjustment of other specified devices (principal); M54.2 Cervicalgia | CPT/HCPCS: 97760; L0172 ==

== ENCOUNTER 2022-04-30 13:18 | Inpatient (IN) | payer MEDICARE, MEDICAID, SELFPAY ==
[2022-04-29 09:08] VITALS: BMI 34.1
--- NOTE | 2022-04-29 13:18 | ANES.PREANE2 ---
Pre-Anesthetic Assessment Height/Weight: Height 1.88 m Weight 120.656 kg Operation Date: 04/30/22 07:00 Proposed Procedures p Anterior Cervical Discectomy & Fusion 3/4 4/5 5/6 6/7 C3/4 08530, C4/5 81762, C5/6 97042 C6/7 40871 [id number] [id number] 38166 G95.9(Not Applicable) - Hitesh Yates, Familial anesthetic complications: none Was Beta Coco taken within 24 hours: N/A Was Clonidine taken within 24 hours: N/A Social Tobacco and No alcohol Exam alert, oriented x 3 and regular rate & rhythm Airway Submandibular: within normal limits Cervical ROM: within normal limits Mallampati: Class II Dentition: chipped and false Pulmonary Sleep Apnea GI Gastroesophageal Reflux Disease Metabolic Morbid Obesity and Thyroid Disease Musc/skel Lower Back Pain and Osteoarthritis/DJD Neuropsych Anxiety, Depression and Seizure Borderline personality Anesthetic Plan ASA status: 3 Anesthesia: General Medications/Allergies Home Medications Medication Instructions Recorded Confirmed Last Taken Type CPAP AUTO TITRATING 8-12CM #1 ea 07/17/20 04/15/22 Unknown Rx acetaminophen 325 mg capsule 325 mg PO QID PRN Pain 09/13/20 04/29/22 03/13/22 History (Tylenol) tizanidine 2 mg tablet 2 mg PO Q8H PRN muscle spasticity 06/21/21 04/29/22 04/02/22 Rx #90 tabs levetiracetam 750 mg 1,500 mg PO DAILY 09/15/21 04/29/22 04/29/22 07:00 History tablet,extended release 24 hr levothyroxine 50 mcg tablet 50 mcg PO DAILY #90 tabs 11/22/21 04/29/22 04/29/22 07:00 Rx levetiracetam 750 mg 1,500 mg PO DAILY 90 days #180 tabs 01/20/22 04/15/22 Unknown Rx tablet,extended release 24 hr (Keppra XR) buspirone 10 mg tablet 10 mg PO 0900,2100 #180 tabs 02/04/22 04/29/22 04/29/22 07:00 Rx hydroxyzine HCl 50 mg tablet 50 mg PO QID PRN insomnia #120 tabs 10/25/22 01/17/23 01/16/23 Rx quetiapine 300 mg tablet (Seroquel) 300 mg PO BEDTIME #90 tabs 02/04/22 04/29/22 04/28/22 20:00 Rx venlafaxine 75 mg capsule,extended 150 mg PO DAILY 30 days #180 caps 02/04/22 04/29/22 04/29/22 07:00 Rx release 24 hr celecoxib 100 mg capsule (Celebrex) 100 mg PO BID PRN pain #180 caps 03/24/22 04/29/22 04/28/22 07:00 Rx Cervical Spine Collar #1 ea 04/01/22 04/15/22 Unknown Rx pantoprazole 40 mg tablet,delayed 40 mg PO DAILY #90 tabs 04/15/22 04/29/22 04/29/22 07:00 Rx release Intraoperative Neuromonitoring #1 ea 04/28/22 04/28/22 Unknown Rx Allergies Allergy/AdvReac Type Severity Reaction Status Date / Time chlorpromazine Allergy Severe Tongue Verified 04/15/22 14:22 [From Thorazine] swells and difficulty breathing olanzapine [From Zyprexa] Allergy Severe Tongue Verified 04/15/22 14:22 swells and difficulty breathing risperidone [From Risperdal] Allergy Severe Tongue Verified 04/15/22 14:22 swells and difficulty breathing FOR[facility] Anesthesia Medical History (Updated 04/18/22 @ 05:36 by Gauri Centeno DO) Anxiety and depression Arthralgia of both knees Asthma Chronic otitis media Chronic right shoulder pain Chronic schizophrenia GERD (gastroesophageal reflux disease) Hearing loss Hypothyroidism Influenza vaccine administered Nasal vestibulitis Pain in joint of left elbow Psychiatric care Surgical History H/O knee surgery History of esophageal surgery got a quarter stuck in throat as a child S/P tympanostomy tube placement Social History Smoking and tobacco status: never smoked Second hand smoke exposure: No Smoking risk assessment/counseling performed?: No Alcohol intake: current Alcohol intake frequency: few times a month Alcohol type: beer and wine Desire information about alcohol rehabilitation?: No Counseling given: No Desire information about substance/drug rehabilitation?: No Counseling given: No History of recent travel: No Data Anesthesia Cardiac Studies: No Data to Display
[2022-04-30] VITALS (24 sets, daily range): BP systolic 129–178; BP diastolic 83–121; PULSE 83–127; RESP 5–23; TEMP 36.4–36.9; O2SAT 93–100; BMI 34.1
--- NOTE | 2022-04-30 | XR_ITS ---
WS: [id number] XR cervical spine 3V* [id number] REASON FOR EXAM: C3-C7 ACDF FINDINGS: Anterior plate and screw fixation with interbody fusion devices C3-C7. Surgical appliances are in proper position and alignment. XR/XR cervical spine 3V* [id number] IMPRESSION: Anterior fusion and discectomy C3-C7 without abnormality as above.
[2022-04-30] MEDS: sodium chloride 0.9% 1,000 ML 30 ML IV (06:11)
--- NOTE | 2022-04-30 06:32 | W.PM.OPSUD ---
Surgery/Procedure H&P Update DATE OF PROCEDURE: April 30, 2022 DATE H&P PERFORMED: 04/01/22 H&P UPDATE INFORMATION: I have reviewed H&P completed within last 30 days, I have examined patient prior to procedure and No changes to prior documentation PREOP DIAGNOSIS: Cervical spondylosis with myelopathy and radiculopathy PLANNED PROCEDURE: Operation Date: 04/30/22 07:00 Proposed Procedures p Anterior Cervical Discectomy & Fusion 3/4 4/5 5/6 6/7 C3/4 20194, C4/5 74499, C5/6 36878 C6/7 32495 [id number] 81265 89948 06809 G95.9(Not Applicable) - Hitesh Yates, DO
[2022-04-30] MEDS: ceFAZolin 2,000 MG in sodium chloride 0.9% (plus) 50 ML 100 MG IV ×2 (07:00→14:32)
--- NOTE | 2022-04-30 07:42 | P.ANESUD_ITS ---
Pre-Anesthetic Update Pre-Anesthetic Assessment: Date of Surgery/Procedure: 04/30/22 Preop Zoya gnosis: Cervical spondylosis with myelopathy and radiculopathy Proposed Procedure: Operation Date: 04/30/22 07:00 Proposed Procedures p Anterior Cervical Discectomy & Fusion 3/4 4/5 5/6 6/7 C3/4 13410, C4/5 36875, C5/6 97249 C6/7 49623 [id number] 59869 58628 28329 G95.9(Not Applicable) - Hitesh Yates, DO Any changes to Pre-Anesthetic Assessment?: No Last Intake: Intake Last Liquid Date 04/29/22 Last Liquid Time 18:00 Last Solid Date 04/29/22 Last Solid Time 18:00 Vitals: Temperature 97.9 F 04/30/22 06:07 Temperature Source Temporal Artery S can 04/30/22 06:07 Pulse Rate 87 04/30/22 06:07 Respiratory Rate 17 04/30/22 06:07 Blood Pressure 129/99 04/30/22 06:07 Blood Pressure Nemo n 109 04/30/22 06:07 Pulse Oximetry 96 04/30/22 06:07 Oxygen Delivery Me thod 04/30/22 06:07 Exam: Pre-Anes Outpt Exam: alert, oriented x 3, clear to auscultation bilaterally and regular rate & rhythm Cardiac Studies: No Data to Display
--- NOTE | 2022-04-30 10:00 | PM.OP ---
Operative Report Date of procedure: April 30, 2022 Pre-op diagnosis: Preop Diagnosis Cervical spondylosis with myelopathy and radiculopathy Post-op diagnosis: same Procedure done: 1. Anterior diskectomy C3/4 2. Anterior diskectomy C4/5 3. Anterior diskectomy C5/6 4. Anterior discectomy C6/7 5. Insertion of cage C3/4 6. Insertion of cage C4/5 7. Insertion of cage C5/6 8. Insertion of Cage C6/7 9. Instrumentation with anterior plate from C3-C7 10. Use of allograft Surgeon: Hitesh Yates Wellness Nurse Rn: Sampson Ty Wellness Nurse Rn: The surgical pathologist, Sampson Ty, PAC was needed for his expertise under the microscope. He was important and necessary throughout the procedure to complete in a safe and timely manner. He assisted with patient positioning prepping and draping tissue retraction suctioning of the operative field protection of the dural sac and tissue closure Estimated blood loss (mL): 100 Procedure: 1. Anterior diskectomy C3/4 2. Anterior diskectomy C4/5 3. Anterior diskectomy C5/6 4. Anterior discectomy C6/7 5. Insertion of cage C3/4 6. Insertion of cage C4/5 7. Insertion of cage C5/6 8. Insertion of Cage C6/7 9. Instrumentation with anterior plate from C3-C7 10. Use of allograft The patient was taken to the operating room, where he underwent general endotracheal anesthesia without complications. He was then positioned supine on the operating table, and all areas of impingement were well padded. The arms were carefully padded and tucked at his sides. A roll was placed between the shoulder blades.. An x-ray was done to determine the appropriate level for the skin incision. The entire neck was then sterilely prepped and draped in the usual fashion. Neuromonitoring was attached prior to prepping. A transverse skin incision was made and carried down to the platysma muscle. This was then split in line with its fibers. Blunt dissection was carried down medial to the carotid sheath and lateral to the trachea and esophagus until the anterior cervical spine was visualized. A needle was placed into a disc and an x-ray was done to determine its location. The longus colli muscles were then elevated bilaterally with the electrocautery unit. Self-retaining retractors were placed deep to the longus colli muscle. Attention was brought to the [] level that was confirmed on x-ray. A caspar pin was placed into the C[] vertebrae and the C[] vertebrae. The disk space was then distracted. The microscope was then brought in. A radical anterior discectomies were performed at C[]. This included complete removal of the anterior annulus, nucleus, and posterior annulus. The posterior longitudinal ligament was removed as were the posterior osteophytes. Foraminotomies were then accomplished bilaterally. This was done using a high speed gunjan, kerrison rongeurs and curretes Once all of this was accomplished, the curved currette was used to check for any residual compression. The central canal was wide open as were the foramen. A high-speed bur was used to remove the cartilaginous endplates above and below the interspace. Bleeding cancellous bone was exposed. The disc space were measured and appropriate size cage were placed sterilely onto the field. Allograft graft was packed into the cages. The cage was then placed and there was good juxtaposition against the bleeding decorticated surfaces and good distraction of each interspace. Attention was brought to the next interspace. The [place] pins were removed. Bone wax was used to prevent any bleeding from occurring at the pin sites. Attention was brought to the C3/4 level that was confirmed on x-ray. A caspar pin was placed into the C3 vertebrae and the C4 vertebrae. The disk space was then distracted. The microscope was then brought in. A radical anterior discectomies were performed at C3/4. This included complete removal of the anterior annulus, nucleus, and posterior annulus. The posterior longitudinal ligament was removed as were the posterior osteophytes. Foraminotomies were then accomplished bilaterally. This was done using a high speed gunjan, kerrison rongeurs and curretes Once all of this was accomplished, the curved currette was used to check for any residual compression. The central canal was wide open as were the foramen. A high-speed bur was used to remove the cartilaginous endplates above and below the interspace. Bleeding cancellous bone was exposed. The disc space were measured and appropriate size cage were placed sterilely onto the field. Allograft graft was packed into the cages. The cage was then placed and there was good juxtaposition against the bleeding decorticated surfaces and good distraction of each interspace. Attention was brought to the next interspace. The [place] pins were removed. Bone wax was used to prevent any bleeding from occurring at the pin sites. Attention was brought to the C4/5 level that was confirmed on x-ray. A caspar pin was placed into the C4 vertebrae and the C5 vertebrae. The disk space was then distracted. The microscope was then brought in. A radical anterior discectomies were performed at C4/5. This included complete removal of the anterior annulus, nucleus, and posterior annulus. The posterior longitudinal ligament was removed as were the posterior osteophytes. Foraminotomies were then accomplished bilaterally. This was done using a high speed gunjan, kerrison rongeurs and curretes Once all of this was accomplished, the curved currette was used to check for any residual compression. The central canal was wide open as were the foramen. A high-speed bur was used to remove the cartilaginous endplates above and below the interspace. Bleeding cancellous bone was exposed. The disc space were measured and appropriate size cage were placed sterilely onto the field. Allograft graft was packed into the cages. The cage was then placed and there was good juxtaposition against the bleeding decorticated surfaces and good distraction of each interspace. Attention was brought to the next interspace. The [place] pins were removed. Bone wax was used to prevent any bleeding from occurring at the pin sites. Attention was brought to the C5/6 level that was confirmed on x-ray. A caspar pin was placed into the C5 vertebrae and the C6 vertebrae. The disk space was then distracted. The microscope was then brought in. A radical anterior discectomies were performed at C5/6. This included complete removal of the anterior annulus, nucleus, and posterior annulus. The posterior longitudinal ligament was removed as were the posterior osteophytes. Foraminotomies were then accomplished bilaterally. This was done using a high speed gunjan, kerrison rongeurs and curretes Once all of this was accomplished, the curved currette was used to check for any residual compression. The central canal was wide open as were the foramen. A high-speed bur was used to remove the cartilaginous endplates above and below the interspace. Bleeding cancellous bone was exposed. The disc space were measured and appropriate size cage were placed sterilely onto the field. Allograft graft was packed into the cages. The cage was then placed and there was good juxtaposition against the bleeding decorticated surfaces and good distraction of each interspace. Attention was brought to the next interspace. The [place] pins were removed. Bone wax was used to prevent any bleeding from occurring at the pin sites. Attention was brought to the C6/7 level that was confirmed on x-ray. A caspar pin was placed into the C6 vertebrae and the C7 vertebrae. The disk space was then distracted. The microscope was then brought in. A radical anterior discectomies were performed at C6/7. This included complete removal of the anterior annulus, nucleus, and posterior annulus. The posterior longitudinal ligament was removed as were the posterior osteophytes. Foraminotomies were then accomplished bilaterally. This was done using a high speed gunjan, kerrison rongeurs and curretes Once all of this was accomplished, the curved currette was used to check for any residual compression. The central canal was wide open as were the foramen. A high-speed bur was used to remove the cartilaginous endplates above and below the interspace. Bleeding cancellous bone was exposed. The disc space were measured and appropriate size cage were placed sterilely onto the field. Allograft graft was packed into the cages. The cage was then placed and there was good juxtaposition against the bleeding decorticated surfaces and good distraction of each interspace. Attention was brought to the next interspace. The [place] pins were removed. Bone wax was used to prevent any bleeding from occurring at the pin sites. The appropriate size anterior cervical locking plate was chosen and bent into gentle lordosis. Two screws were then placed into each of the vertebral bodies at C3, C4, C5, C6 and C7. There was excellent purchase. A final x-ray was done confirming good position of the hardware and Cages. The locking screws were then applied, also with excellent purchase. Following a final copious irrigation, there was good hemostasis and no dural leaks. The carotid pulse was strong. The wounds were then closed in layers using 2-0 Vicryl suture for the platysma muscle, 2-0 Vicryl suture for the subcutaneous tissue, and 4-0 monocryl suture in a subcuticular skin closure. Glue was placed followed by application of a sterile dressing. The drain was hooked to bulb suction. A soft collar was applied. The patient was then carefully returned to the supine position on his hospital bed where he was reversed and extubated and taken to the recovery room having tolerated the procedure well.
[2022-04-30] MEDS: fentaNYL 50 mcg/mL INJ 2mL IVP ×2 (10:29→11:09)
[2022-04-30] MEDS: labetalol 5 mg/mL SDV 20mL IVP (11:05)
[2022-04-30] MEDS: hyDRALAzine 20 mg/mL INJ 1 mL 10 MG IVP (11:14)
--- NOTE | 2022-04-30 11:27 | PC.NURSE ---
1105 Dr Flaherty notified of BP with orders given
[2022-04-30] MEDS: HYDROmorphone 1 mg/mL INJ 1 mL 0.5 MG IVP (11:50)
--- NOTE | 2022-04-30 13:50 | ANE.PACU2 ---
Inpatient post-anesthesia follow up: Airway intact: Yes Vital signs: Temperature 98.4 F Pulse Rate 110 Respiratory Rate 15 Blood Pressure 148/101 Pulse Oximetry 97 Oxygen Delivery Me thod Nasal Cannula Oxygen Flow Rate 2.0 Fraction of Inspir ed Oxygen Hydration adequate: Yes Nausea and vomiting: No Pain level: 3 Mental status: Baseline
[2022-04-30] MEDS: lactated ringers 1,000 ML 90 ML IV (14:32)
[2022-04-30] MEDS: HYDROcodone-acetaminophen 5-325 mg Tablet PO ×2 (14:32→19:37)
[2022-04-30] MEDS: docusate sodium 100 mg Capsule PO (17:35)
[2022-04-30] MEDS: ketorolac 30 mg/mL INJ IVP (17:35)
[2022-04-30] MEDS: BuSPIRONE 10 mg Tablet PO (20:47)
[2022-04-30] MEDS: quetiapine 300 mg Tablet PO (20:47)
[2022-04-30] MEDS: hyDROXYzine 25 mg Capsule 50 MG PO (20:53)
[2022-05-01] VITALS: BP 133/78; PULSE 78; RESP 15; TEMP 36.6; O2SAT 93
[2022-05-01] MEDS: ketorolac 30 mg/mL INJ IVP (00:01)
[2022-05-01] MEDS: ceFAZolin 2,000 MG in sodium chloride 0.9% (plus) 50 ML 100 MG IV ×2 (00:01→05:59)
[2022-05-01] MEDS: lactated ringers 1,000 ML 90 ML IV (01:06)
[2022-05-01 04:00] VITALS: BP 146/87; PULSE 75; RESP 16; TEMP 36.5; O2SAT 96
[2022-05-01 06:00] VITALS: BP 132/85; PULSE 75; RESP 16; TEMP 36.4; O2SAT 93
--- NOTE | 2022-05-01 07:15 | P.PN_ITS ---
Subjective Subjective: POD 1 Patient resting comfortably. Reports some improvement of increased sensation in his hands. Mild swallowing discomfort. Denies any voice changes, headaches, shortness of breath, chest pain. Vitals/I&O/Wt Last Vital Signs Temp 97.7 F 05/01/22 04:00 Pulse 75 05/01/22 04:00 Resp 16 05/01/22 04:00 BP 146/87 05/01/22 04:00 Pulse Ox 96 05/01/22 04:00 O2 Del Method 05/01/22 04:00 O2 Flow Rate 2.0 04/30/22 12:05 04/30/22 05/01/22 05/01/22 22:59 06:59 14:59 Intake Total 290 / 3240 1051 / 4291 Output Total 60 / 1070 3195 / 4265 Balance 230 / 2170 -2144 / 26 Weight last 48 hrs Weight 266 lb Weight 266 lb Physical Exam Narrative: Patient is alert and oriented x3 with a good general appearance normal mood and affect. mildly tender with palpation about the incisional site. Incision appears to be clean and dry with hemovac intact, without signs of erythema or drainage. No signs of infection. Good motor strength throughout both upper extremities. Appears to fire in all motor groups with 5/5 strength. Hands are warm good cap refill in all digits. Normal sensation to light touch in all dermatomal areas. Urinary Catheter Management: Bach: Cath Placed During This Visit: yes Reason for Continuing Indwelling Catheter: Perioperative Use in Selected Surgeries Urinary Catheter Date of Insertion: 04/30/22 A&P Assessment and plan (1) Status post cervical spinal fusion: Discontinue Hemovac drain. Encourage incentive spirometry for pulmonary toilet. Physical therapy to mobilize. Will discharge home later this morning. Pain medication prescription [facility]. We will see him back in the office in 1 week's time for wound check. Continue Candler J collar. Attestations Medical Necessity Statement*: Discharge home later this morning Coding Level of Care Code Acute Code for Chg Fwd Diagnoses Status post cervical spinal fusion Z98.1
[2022-05-01] MEDS: docusate sodium 100 mg Capsule PO (08:03)
[2022-05-01] MEDS: levothyroxine 50 mcg Tablet PO (08:04)
[2022-05-01] MEDS: HYDROcodone-acetaminophen 5-325 mg Tablet PO ×2 (08:04→13:06)
[2022-05-01] MEDS: pantoprazole DR 40 mg Tablet PO (08:04)
[2022-05-01] MEDS: levETIRAcetam 500 mg Tablet 1500 MG PO (08:04)
[2022-05-01] MEDS: venlafaxine ER (24HR) 150 mg Capsule PO (08:04)
[2022-05-01] MEDS: BuSPIRONE 10 mg Tablet PO (08:04)
--- NOTE | 2022-05-01 08:14 | PC.NURSE ---
hemovac removed and new silverlon dressing applied to neck. pt tolerated well.
[2022-05-01 11:40] VITALS: BP 148/92; PULSE 87; RESP 16; TEMP 36.6; O2SAT 93
--- NOTE | 2022-05-01 12:37 | PC.CHAP ---
Pastoral Care Encounter/Spiritual Assessment Type of Contact [] Declined medical insurance biller visit [] Patient/Family/Request visit [] Outpatient visit [] Follow-up visit [] Physician referral [] Code/Alert [x] Routine visit [] Staff referral [] Actively dying [] Patient sleeping [] Family support [] [] Out of room [] Palliative care [] [x] Receiving care in room [] Pre-surgical visit [] Trauma [] Long length of stay [] ICU visit [] Other: Relational/Emotional Strength [x] Patient feels connected with others/family/visitors/staff [] Distress [] Loneliness/isolation [] Abandonment Spirituality of Patient [x] Person of Jenny [] Attends Latter Day of their Jenny [x] Believes in Prayer [] Reads Bible or Adventist materials [] There are Spiritual issues to be addressed [facility] Interventions [x] Prayer [x] Active listening [x] Non-anxious presence [x] Spiritual/emotional support [] Crisis/trauma care [x] Spiritual counseling [] Bereavement support [] Provided bereavement packet [] Provided Bible/devotional materials [] Provided toy/stuffed animal, coloring book to patient or family member [] Provided Communion [] Anointing/Raritan [] Salvation [x] Completed spiritual assessment [] Other: Impact on Illness or Injury [] Angry [] Fearful [] Anxious [] Often cries [] Exhaustion [] Unable to work [] Unable to attend samaritan [] Unable to walk/stand [] Unable to read [] Unable to drive [] Unable to eat/drink [] Unable to sleep [] Unable to be with family [] Patient intubated [] Other: Summary had back surgery in some pain well need some rehab time well get to home tala perdue has good attitude Time spent with patient 10 mins
--- NOTE | 2022-05-01 14:16 | PC.NURSE ---
patient verbalized understanding of discharge instructions, home medications, and follow up appointments. Personal walker delivered from HOME.
[2022-05-01 14:17] VITALS: BP 148/92; PULSE 87; RESP 16; TEMP 36.6; O2SAT 93
== END 2022-05-01 14:00 | disposition home health service (06) | DRG 472 ==
LOC: MEDSURG 13:19
PROVIDERS: Admitting Provider Orthopaedic Surgery; PCP Family Medicine; Visit Provider Orthopaedic Surgery
PROC: 0RB30ZZ Excision of Cervical Vertebral Disc, Open Approach (ICD-10-PCS; CPT 22551; principal; 2022-04-30 07:00)
DX: M47.12 Other spondylosis with myelopathy, cervical region (principal); G40.209 Localization-related (focal) (partial) symptomatic epilepsy and epileptic syndromes with complex partial seizures, not intractable, without status epilepticus; M50.01 Cervical disc disorder with myelopathy, high cervical region; M47.22 Other spondylosis with radiculopathy, cervical region; M50.11 Cervical disc disorder with radiculopathy, high cervical region; M48.02 Spinal stenosis, cervical region; F32.A Depression, unspecified; F41.9 Anxiety disorder, unspecified; Z91.81 History of falling
CPT/HCPCS: 51702; 72040; 76000; 97110; 97161; 97530; C1713; C9359; J0131; J0360; J0690; J1100; J1170; J1885; J2250; J2405; J2704; J3010; J3490; J7030; J7120; L0174

== ENCOUNTER 2022-05-08 19:34 | Emergency (ER) | payer MEDICARE, MEDICAID, SELFPAY ==
[2022-05-08 19:42] VITALS: BMI 33.5
[2022-05-08 19:51] VITALS: BP 122/88; PULSE 99; RESP 20; TEMP 37.1; O2SAT 96
--- NOTE | 2022-05-08 19:54 | ECG_ITS ---
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 Measurements Intervals [place] Rate: 85 P: 41 ND: 154 QRS: 56 QRSD: 85 T: 54 QT: 343 QTc: 409 Interpretive Statements SINUS RHYTHM Compared to ECG 05/19/2017 10:53:22 Sinus tachycardia no longer present T-wave abnormality no longer present Electronically Signed On 05-08-2022 23:41:49 TELETYPE OPERATOR by Yaima Sanford M.D. [email or web address] [email or web address] regional [email or web address] BAGSprovidence [email or web address] [id number]
--- NOTE | 2022-05-08 21:11 | W.ED.GENADLT ---
HPI - General Adult General: Chief complaint: General Medical Stated complaint: VERTIGO Time Seen by Provider: 05/08/22 21:10 History of Present Illness: 41-year-old male patient comes in today for complaints of dizziness after standing up. Patient had recently had surgery for a foraminal stenosis and cervical radiculopathy. Patient reports being without his pain medicine and wanting a refill for his hydrocodone. Patient contacted the physician's office today but was not able to get a refill. Review of Systems Musc: Reports: neck pain Neuro: Reports: dizziness PFSH ED PFSH: Medical History (Updated 05/08/22 @ 22:16 by ADELE Robb) Anxiety and depression Arthralgia of both knees Asthma Chronic otitis media Chronic right shoulder pain Chronic schizophrenia GERD (gastroesophageal reflux disease) Hearing loss Hypothyroidism Influenza vaccine administered Nasal vestibulitis Pain in joint of left elbow Psychiatric care Surgical History (Updated 05/01/22 @ 07:16 by Sampson Ty PA-C) H/O knee surgery History of esophageal surgery got a quarter stuck in throat as a child S/P tympanostomy tube placement Social History Smoking and tobacco status: never smoked Second hand smoke exposure: No Smoking risk assessment/counseling performed?: No Alcohol intake: current Alcohol intake frequency: few times a month Alcohol type: beer and wine Desire information about alcohol rehabilitation?: No Counseling given: No Desire information about substance/drug rehabilitation?: No Counseling given: No History of recent travel: No Physical Exam Const: COMMON NORMALS: alert HENMT: COMMON NORMALS: normocephalic HEAD & SCALP: normocephalic Neck/C-Spine: CERVICAL SPINE: Yes other (C-collar in place) Resp: COMMON NORMALS: normal respiratory effort Cardio: COMMON NORMALS: regular rate RATE: regular rate Extremity: COMMON NORMALS: full ROM Neuro: SENSORIUM/ORIENTATION: Yes alert Skin: COMMON NORMALS: turgor normal GENERAL SKIN EXAM: turgor normal Course Vital Signs: Vital signs: Vital Signs Temperature 98.8 F 05/08/22 19:51 Pulse Rate 99 05/08/22 19:51 Respiratory Rate 20 H 05/08/22 19:51 Blood Pressure 122/88 05/08/22 19:51 Pulse Oximetry 96 05/08/22 19:51 Oxygen Delivery Me thod 05/08/22 19:51 MDM - General Adult Medical Decision Making 41-year-old male patient comes in today with complaints of neck pain and dizziness. On exam patient appears nontoxic. Lungs are clear to auscultation. Abdomen soft nontender. Vital signs are normal. Differential diagnosis includes but not limited to anemia, vasovagal syncope, uncontrolled neck pain, BPV. Laboratory values noted no significant abnormalities. Blood count was normal. Creatinine is normal. Reviewed exam with patient with recommendations for treatment and follow-up. Patient was written for 20 tablets of hydrocodone for his pain recommended to try to reduce the amount of hydrocodone he uses in a day in order to start weaning off postsurgery. Patient reported understanding and agreed to plan. Lab Data 05/08/22 21:05/08/22 21: Laboratory Results WBC 6.6 10^3/uL (4.0-10.0) 05/08/22 21: RBC 4.89 10^6/uL (4.1-5.3) 05/08/22 21: Hgb 14.5 g/dL (11.7-16.6) 05/08/22 21: Hct 42.3 % (42.0-52.0) 05/08/22 21: MCV 86.5 fl (80-94) 05/08/22 21: MCH 29.7 pg (28.0-34.0) 05/08/22 21: MCHC 34.3 g/dL (30.0-36.0) 05/08/22: RDW 11.8 % (12.1-15.1) L 05/08/22 21: Plt Count 220 10^3/cmm (130-400) 05/08/22 21: MPV 10.9 fL (7.4-10.4) H 05/08/22: Neut % (Auto) 54.8 % 05/08/22: Lymph % (Auto) 31.3 % 05/08/22: Garfield % (Auto) 11.6 % 05/08/22: Eos % (Auto) 1.5 % 05/08/22: Baso % (Auto) 0.3 % 05/08/22: Neut # (Auto) 3.59 10^3/uL (1.8-7.7) 05/08/22: Lymph # (Auto) 2.1 10^3/uL (0.8-4.8) 05/08/22: Garfield # (Auto) 0.8 10^3/uL (0.2-0.9) 05/08/22: Eos # (Auto) 0.1 10^3/uL (0.0-0.8) 05/08/22: Baso # (Auto) 0.0 10^3/uL (0.0-0.1) 05/08/22: Nucleated RBC % (auto) 0 % 05/08/22 Nucleated RBCs # 0.0 /100WBC 05/08/22: Sodium 137 mmol/L (136-145) 05/08/22: Potassium 3.8 mmol/L (3.5-5.1) 05/08/22: Chloride 100 mmol/L (98-107) 05/08/22: Carbon Dioxide 26 mmol/L (22-29) 05/08/22: Anion Gap 14.8 (5-19) 05/08/22: BUN 15 mg/dL (6-20) 05/08/22: Creatinine 0.6 mg/dL (0.7-1.2) L 05/08/22: GFR Calculation 150.0 mL/min (90-130) H 05/08/22: Glucose 111 mg/dL (65-115) 05/08/22: Calculated Osmolality 286 mOsm/kg (285-295) 05/08/22: Calcium 9.1 mg/dL (8.5-10.5) 05/08/22: Total Bilirubin 0.5 mg/dL (0.15-1.2) 05/08/22: AST 28 U/L (0-40) 05/08/22: ALT 45 U/L (0-41) H 05/08/22: Alkaline Phosphatase 147 U/L (40-130) H 05/08/22: Total Protein 7.0 g/dL (6.6-8.7) 05/08/22 21:27 Albumin 4.1 g/dL (3.5-5.2) 05/08/22 21:27 Globulin 2.9 g/dL (1.3-4.6) 05/08/22 21:27 EKG Data EKG 1: EKG interpretation date: 05/08/22 EKG interpretation time: 20:00 Prior EKG tracings: available for review Interpretation: EKG shows a sinus rhythm with no signs of ectopy or ST elevation. Regular rate in the 70s is noted. When compared to prior exam no significant changes were noted. Discharge Plan Discharge Patient Disposition: Home Clinical Impression: BPV (benign positional vertigo), Cervical myelopathy with cervical radiculopathy Condition: Stable Prescriptions: Changed hydrocodone-acetaminophen 5-325 mg tablet 1 tab PO Q4H PRN (Reason: Moderate To Severe Pain) Qty: 20 0RF No Action tizanidine 2 mg tablet 2 mg PO Q8H PRN (Reason: muscle spasticity) Qty: 90 0RF acetaminophen [Tylenol] 325 mg capsule 325 mg PO QID PRN (Reason: Pain) pantoprazole 40 mg tablet,delayed release (DR/EC) 40 mg PO DAILY Qty: 90 1RF (DME) Cervical Spine Collar See Rx Instructions .Route .MEDSUPPLY Qty: 1 0RF Rx Instructions: As directed (DME) Intraoperative Neuromonitoring See Rx Instructions .Route .MEDSUPPLY Qty: 1 0RF Rx Instructions: As directed hydroxyzine HCl 50 mg tablet 50 mg PO QID PRN (Reason: insomnia) Qty: 120 2RF venlafaxine 75 mg capsule,extended release 24hr 150 mg PO DAILY 30 Days Qty: 180 0RF Seroquel 300 mg tablet 300 mg PO BEDTIME Qty: 90 0RF buspirone 10 mg tablet 10 mg PO 0900,2100 Qty: 180 0RF (DME) CPAP AUTO TITRATING 8-12CM See Rx Instructions .Route .MEDSUPPLY Qty: 1 0RF Rx Instructions: As directed levothyroxine 50 mcg tablet 50 mcg PO DAILY Qty: 90 1RF Rx Instructions: Take 1 tablet by mouth once daily Celebrex 100 mg capsule 100 mg PO BID PRN (Reason: pain) Qty: 180 1RF Hold Instructions: Resume on 06/02/22. Rx Instructions: Take with food levetiracetam 750 mg tablet extended release 24 hr 1,500 mg PO DAILY Discharge Orders: Discharge ED (Routine); Ordered 05/08/22 Ordered By: Shashi James Referrals: Gauri Centeno DO [Primary Care Provider] - Discharge Diet: Usual diet Discharge Activity: Increase activity as tolerated Patient Instructions: Cervical Spinal Stenosis (ED), Opioid Safety, Pain Management Activity Restrictions/Additional Instructions: Drink plenty of water and fluids. Continue with routine medications as directed. Decrease the use of hydrocodone for your pain to avoid reliance on narcotic medications. Follow-up with surgeon for further refills. Return to ED for worsening symptoms such as fever greater than 100.4, uncontrolled pain, or new concerns. Coding Level of Care Code ED Enrichment Director for Bob Fwd Exam Detailed
[2022-05-08] MEDS: HYDROcodone-acetaminophen 5-325 mg Tablet 1 TAB PO (21:21)
[2022-05-08 21:35] LABS: Basophils % 0.3 %; Eosinophils # 0.1 10^3/uL (0.0-0.8); Eosinophils % 1.5 %; Hematocrit 42.3 % (42.0-52.0); Hemoglobin 14.5 g/dL (11.7-16.6); Lymphocytes # 2.1 10^3/uL (0.8-4.8); Lymphocytes % 31.3 %; Mean Corpuscular HGB Conc 34.3 g/dL (30.0-36.0); Mean Corpuscular Hemoglobin 29.7 pg (28.0-34.0); Mean Corpuscular Volume 86.5 fl (80-94); Mean Platelet Volume 10.9 fL (7.4-10.4); Monocytes # 0.8 10^3/uL (0.2-0.9); Monocytes % 11.6 %; Neutrophils # 3.59 10^3/uL (1.8-7.7); Neutrophils % 54.8 %; Nucleated Red Blood Cells % 0 %; Platelet Count 220 10^3/cmm (130-400); Red Blood Count 4.89 10^6/uL (4.1-5.3); Red Cell Distribution Width 11.8 % (12.1-15.1); White Blood Count 6.6 10^3/uL (4.0-10.0)
[2022-05-08 21:59] LABS: Alanine Aminotransferase 45 U/L (0-41); Albumin Level 4.1 g/dL (3.5-5.2); Alkaline Phosphatase 147 U/L (40-130); Anion Gap 14.8 (5-19); Aspartate Amino Transferase 28 U/L (0-40); Blood Urea Nitrogen 15 mg/dL (6-20); Calcium 9.1 mg/dL (8.5-10.5); Carbon Dioxide 26 mmol/L (22-29); Chloride 100 mmol/L (98-107); Globulin 2.9 g/dL (1.3-4.6); Glucose 111 mg/dL (65-115); Osmolality Calculated 286 mOsm/kg (285-295); Potassium 3.8 mmol/L (3.5-5.1); Sodium 137 mmol/L (136-145); Total Bilirubin 0.5 mg/dL (0.15-1.2)
[2022-05-08 22:27] VITALS: BP 141/86; PULSE 96; RESP 15; TEMP 36.7; O2SAT 94
== END 2022-05-08 22:25 | disposition home or self-care (01) ==
PROVIDERS: Emergency Provider Nurse Practitioner Family; PCP Family Medicine
DX: H81.10 Benign paroxysmal vertigo, unspecified ear (principal); G95.89 Other specified diseases of spinal cord; M54.12 Radiculopathy, cervical region
CPT/HCPCS: 80053; 85025; 93005; 99284

== ENCOUNTER → 2022-05-20 08:53 | Outpatient (BNVA) | payer MEDICARE, MEDICAID, SELFPAY | PROVIDERS: PCP Family Medicine; Visit Provider Physician Assistant | DX: Z98.1 Arthrodesis status (principal); M54.12 Radiculopathy, cervical region | CPT/HCPCS: 72040; 99024 ==

== ENCOUNTER → 2022-06-10 10:44 | Outpatient (BNVA) | payer MEDICARE, MEDICAID, SELFPAY | PROVIDERS: PCP Family Medicine; Visit Provider Physician Assistant | DX: Z98.1 Arthrodesis status (principal) | CPT/HCPCS: 72040; 99024 ==

== ENCOUNTER → 2022-07-01 12:12 | Outpatient (BNVA) | payer MEDICARE, MEDICAID, SELFPAY | PROVIDERS: PCP Family Medicine; Visit Provider Family Medicine | DX: E03.9 Hypothyroidism, unspecified (principal) | CPT/HCPCS: 84443 ==

== ENCOUNTER → 2022-07-22 10:13 | Outpatient (BNVA) | payer MEDICARE, MEDICAID, SELFPAY | PROVIDERS: PCP Family Medicine; Visit Provider Physician Assistant | DX: Z98.1 Arthrodesis status (principal) | CPT/HCPCS: 72040; 99024 ==

== ENCOUNTER → 2022-11-17 11:11 | Outpatient (BNVA) | payer MEDICARE, MEDICAID, SELFPAY | PROVIDERS: PCP Family Medicine; Visit Provider Family Medicine | DX: R61 Generalized hyperhidrosis (principal); Z79.899 Other long term (current) drug therapy | CPT/HCPCS: 80053; 82533; 83036; 84443 ==

== ENCOUNTER → 2023-02-25 10:04 | Outpatient (BNVA) | payer MEDICARE, MEDICAID, SELFPAY | PROVIDERS: PCP Family Medicine; Visit Provider Specialist | DX: G40.109 Localization-related (focal) (partial) symptomatic epilepsy and epileptic syndromes with simple partial seizures, not intractable, without status epilepticus (principal); R45.4 Irritability and anger | CPT/HCPCS: 99214 ==

== ENCOUNTER 2023-05-01 13:02 | Outpatient (CLI) | payer MEDICARE, MEDICAID, SELFPAY ==
--- NOTE | 2023-05-01 13:30 | US_ITS ---
WS: [id number] RIGHT UPPER QUADRANT ULTRASOUND HISTORY: elevated LFT's COMPARISON: None available. Liver: 18.7 cm in length. Moderately enlarged liver. Hepatic steatosis. No mass. Portal Vein: Normal hepatopetal flow with monophasic waveform. Gallbladder: Nondistended gallbladder with numerous stones along the dependent portion of the gallbla dder. No wall thickening or pericholecystic fluid. CBD: 0.3 cm Pancreas: Nearly completely obscured by bowel gas. Right kidney: 11.5 cm in length. Normal size and echogenicity. No hydronephrosis or mass. Aorta and IVC: Unremarkable abdominal aorta and IVC. No ascites. IMPRESSION: 1. Cholelithiasis. Numerous stones within the gallbladder. No evidence for acute cholecystitis. 2. Moderate hepatic steatosis and hepatomegaly.
== END 2023-05-01 13:03 | disposition home or self-care (01) ==
LOC: RAD 13:03
PROVIDERS: PCP Family Medicine; Visit Provider Family Medicine
DX: R79.89 Other specified abnormal findings of blood chemistry (principal); K80.20 Calculus of gallbladder without cholecystitis without obstruction; K76.0 Fatty (change of) liver, not elsewhere classified; R16.0 Hepatomegaly, not elsewhere classified
CPT/HCPCS: 76705

== ENCOUNTER 2023-05-20 15:38 | Emergency (ER) | payer MEDICARE, MEDICAID, SELFPAY ==
--- NOTE | 2023-05-20 15:40 | XRR_ITS ---
PROCEDURE INFORMATION: Exam: XR Chest Exam date and time: 05/20/2023 4:03 PM Age: 42 years old Clinical indication: Fever TECHNIQUE: Imaging protocol: Radiologic exam of the chest. Views: 1 view. COMPARISON: CR XR chest 1V [id number] 07/11/2017 10:40 PM FINDINGS: Lungs: Unremarkable. No consolidation or mass. Pleural spaces: Unremarkable. No pleural effusion. No pneumothorax. Heart/Mediastinum: Unremarkable. No cardiomegaly. Bones/joints: Unremarkable. XR/XR chest 1V portable [id number] IMPRESSION: No acute findings.
[2023-05-20 15:52] VITALS: BP 124/88; PULSE 90; RESP 18; TEMP 37.2; O2SAT 98
[2023-05-20 16:45] LABS: Influenza A by IFA Positive (Negative); Influenza B by IFA Negative (Negative)
[2023-05-20 16:46] LABS: SARS Covid-2 Antigen negative (Negative)
--- NOTE | 2023-05-20 16:58 | W.ED.URI ---
HPI - URI/Sore Throat General: Chief Complaint: Upper Respiratory Infection Stated Complaint: SOB Time Seen by Provider: 05/20/23 16:58 History of Present Illness: 42-year-old male patient comes in today for complaints of cough and congestion. On exam patient been ill for 2 to 3 days. Patient has been exposed to COVID. Patient reports persistent cough with cough drops not helping. Patient appears mildly ill but not toxic. Review of Systems General: Reports: 10 or more systems reviewed and unremarkable except in HPI and below PFSH ED PFSH: Medical History Influenza vaccine administered Pain in joint of left elbow Psychiatric care Nasal vestibulitis Hearing loss Chronic otitis media Chronic right shoulder pain Hypothyroidism Arthralgia of both knees Asthma GERD (gastroesophageal reflux disease) Anxiety and depression Chronic schizophrenia Surgical History History of esophageal surgery got a quarter stuck in throat as a child S/P tympanostomy tube placement H/O knee surgery Social History Smoking and tobacco/nicotine status: never used tobacco/nicotine Second hand smoke exposure: No Alcohol intake: current Alcohol intake frequency: few times a month Alcohol type: beer and wine Substance/Drug Use: former Date of last use: 2014 Physical Exam Const: COMMON NORMALS: alert HENMT: COMMON NORMALS: normocephalic HEAD & SCALP: normocephalic THROAT: posterior oropharynx abnormal erythema Neck/C-Spine: COMMON NORMALS: full ROM Resp: COMMON NORMALS: normal respiratory effort and clear to auscultation bilaterally AUSCULTATION: clear to auscultation bilaterally Cardio: COMMON NORMALS: regular rate and regular rhythm RATE: regular rate RHYTHM: regular rhythm GI: COMMON NORMALS: non-tender Back/Pelvis: COMMON NORMALS: thoracic and lumbar spine normal to inspection Extremity: COMMON NORMALS: no pedal edema Neuro: SENSORIUM/ORIENTATION: Yes alert Skin: COMMON NORMALS: turgor normal GENERAL SKIN EXAM: turgor normal Course Vital Signs: Vital signs: Vital Signs Temperature 99 F 05/20/23 15:52 Pulse Rate 90 05/20/23 15:52 Respiratory Rate 18 05/20/23 15:52 Blood Pressure 124/88 05/20/23 15:52 Pulse Oximetry 98 05/20/23 15:52 Oxygen Delivery Me thod Room Air 05/20/23 15:52 MDM - URI/Sore Throat Medical Decision Making Patient comes in for upper respiratory infection x 2 days. On exam patient appears nontoxic. Skin warm and dry. Color is pink. Differential diagnosis includes COVID, influenza, upper respiratory infection. Patient was tested positive for influenza A. Chest x-ray was normal. COVID was negative. Patient was given some guaifenesin with codeine to help with cough. Patient was recommended to follow-up with primary care for further instructions. Patient was recommended return to ER for worsening symptoms. Lab Data Radiology Impressions Chest X-Ray 05/20/23 15:40 IMPRESSION: No acute findings. Laboratory Results Influenza Type A Ag Positive (Negative) H 05/20/23 15:55 Influenza Type B Ag Negative (Negative) 05/20/23 15:55 SARS-CoV-2 Ag (Rapid) negative (Negative) 05/20/23 15:55 All radiology interpretation(s) finalized by discharge Discharge Plan Discharge Patient Disposition: Home Clinical Impression: Influenza A Condition: Stable Prescriptions: New codeine-guaifenesin 10-100 mg/5 mL liquid 5 ml PO Q6H PRN (Reason: cough) Qty: 120 0RF No Action acetaminophen [Tylenol] 325 mg capsule 325 mg PO QID PRN (Reason: Pain) (DME) Cervical Spine Collar See Rx Instructions .Route .MEDSUPPLY Qty: 1 0RF Rx Instructions: As directed levetiracetam 750 mg tablet extended release 24 hr 1,500 mg PO DAILY Qty: 180 3RF trazodone 50 mg tablet 100 mg PO .HS PRN (Reason: insomnia) Qty: 180 0RF venlafaxine 75 mg capsule,extended release 24hr 150 mg PO DAILY 30 Days Qty: 180 0RF Seroquel 300 mg tablet 300 mg PO BEDTIME Qty: 90 0RF buspirone 10 mg tablet 10 mg PO 0900,2100 Qty: 180 0RF clotrimazole-betamethasone 1-0.05 % cream 1 applic topical BID 28 Days Qty: 45 1RF (DME) CPAP AUTO TITRATING 8-12CM See Rx Instructions .Route .MEDSUPPLY Qty: 1 0RF Rx Instructions: As directed Celebrex 100 mg capsule 100 mg PO BID PRN (Reason: pain) Qty: 180 1RF Hold Instructions: Resume on 06/02/22. Rx Instructions: Take with food pantoprazole 40 mg tablet,delayed release (DR/EC) See Rx Instructions .ROUTE .COMPLEX Qty: 90 0RF Dose Instruction: Take 1 tablet by mouth once daily Rx Instructions: Take 1 tablet by mouth once daily metformin 500 mg tablet extended release 24 hr 500 mg PO DAILY Qty: 90 0RF levothyroxine 50 mcg tablet 50 mcg PO DAILY Qty: 90 1RF Rx Instructions: Take 1 tablet by mouth once daily tizanidine 2 mg tablet 2 mg PO Q8H PRN (Reason: muscle spasticity) Qty: 90 0RF Discharge Orders: Discharge ED (Routine); Ordered 05/20/23 Ordered By: Shashi James Referrals: Gauri Centeno DO [Primary Care Provider] - Discharge Diet: Usual diet Discharge Activity: Increase activity as tolerated Patient Instructions: Influenza (ED) Activity Restrictions/Additional Instructions: Home and rest. Drink plenty of water and fluids. Use acetaminophen and ibuprofen for pain. Use guaifenesin with codeine 5 mL every 6 hours as needed for cough. Follow-up with primary care for further instructions. Return to ED for new concerns. Coding Level of Care Code ED Gaming Surveillance Observer for Bob Arevalo
[2023-05-20 17:14] VITALS: BP 129/89; PULSE 88; RESP 16; TEMP 37.2; O2SAT 98
== END 2023-05-20 17:15 | disposition home or self-care (01) ==
PROVIDERS: Emergency Medicine; Emergency Provider Nurse Practitioner Family; PCP Family Medicine
DX: J10.1 Influenza due to other identified influenza virus with other respiratory manifestations (principal); Z79.84 Long term (current) use of oral hypoglycemic drugs; Z11.52 Encounter for screening for COVID-19
CPT/HCPCS: 71045; 87426; 87804; 99284

== ENCOUNTER 2023-09-23 11:48 | Emergency (ER) | payer MEDICARE, MEDICAID, SELFPAY ==
[2023-09-23 11:49] VITALS: BP 147/96; PULSE 94; RESP 18; TEMP 36.7; O2SAT 97
--- NOTE | 2023-09-23 12:00 | ED.C_ITS ---
HPI - Psych General: Chief Complaint: Psychiatric Symptoms Stated Complaint: SI Time Seen by Provider: 09/23/23 11:51 History of Present Illness: 42-year-old man with history of asthma, depression, anxiety and schizophrenia who presents to the emergency room by ambulance. He says he is having some issues with some person that will not leave him alone. He says he just needs somebody to talk to. Apparently he had held a knife to the back of his arm, and this is why the ambulance brought him to the emergency room. He says he had no intention to hurt himself. He says he sometimes does have self-harm but he has no suicidal or homicidal ideations at this time Review of Systems Narrative: Constitutional symptoms: Negative except as documented in HPI. Skin symptoms: Negative except as documented in HPI. Eye symptoms: Negative except as documented in HPI. ENMT symptoms: Negative except as documented in HPI. Respiratory symptoms: Negative except as documented in HPI. Cardiovascular symptoms: Negative except as documented in HPI. Gastrointestinal symptoms: Negative except as documented in HPI. Genitourinary symptoms: Negative except as documented in HPI. Musculoskeletal symptoms: Negative except as documented in HPI. Neurologic symptoms: Negative except as documented in HPI. Psychiatric symptoms: Negative except as documented in HPI. Endocrine symptoms: Negative except as documented in HPI. [facility] ED PFSH: Medical History Influenza vaccine administered Pain in joint of left elbow Psychiatric care Nasal vestibulitis Hearing loss Chronic otitis media Chronic right shoulder pain Hypothyroidism Arthralgia of both knees Asthma GERD (gastroesophageal reflux disease) Anxiety and depression Chronic schizophrenia Surgical History History of esophageal surgery got a quarter stuck in throat as a child S/P tympanostomy tube placement H/O knee surgery Social History Smoking and tobacco/nicotine status: never used tobacco/nicotine Second hand smoke exposure: No Alcohol intake: current Alcohol intake frequency: few times a month Alcohol type: beer and wine Substance/Drug Use: former Date of last use: 2014 Physical Exam Narrative: EXAM NARRATIVE: General: Alert, no acute distress. Skin: Warm, dry. Head: Normocephalic, atraumatic. Neck: Supple, trachea midline. Eye: Extraocular movements are intact. Ears, nose, mouth and throat: mucosa moist. Cardiovascular: Regular, Normal peripheral perfusion. Respiratory: Lungs are clear to auscultation, respirations are non-labored, breath sounds are equal, Symmetrical chest wall expansion. Gastrointestinal: Soft, Nontender, Non distended, Normal bowel sounds. Musculoskeletal: Normal ROM, no deformity. Neurological: Alert and oriented, No focal neurological deficit observed. Psychiatric: Cooperative, patient has odd affect. He denies any homicidal or suicidal ideations. Says he just wants to talk to someone. Course Vital Signs: Vital signs: Vital Signs Temperature 98.1 F 09/23/23 11:49 Pulse Rate 94 09/23/23 11:49 Respiratory Rate 18 09/23/23 11:49 Blood Pressure 147/96 09/23/23 11:49 Pulse Oximetry 97 09/23/23 11:49 [facility] - Psych Medical Decision Making Assessment and plan: Anxiety - Discharged home - Discussed plan with patient. Answered any questions. - Evaluation and treatment of this problem were appropriate in the emergency setting. No radiology studies performed this visit Discharge Plan Discharge Patient Disposition: Home Clinical Impression: Acute anxiety Condition: Stable Prescriptions: No Action acetaminophen [Tylenol] 325 mg capsule 325 mg PO QID PRN (Reason: Pain) (DME) Cervical Spine Collar See Rx Instructions .Route .MEDSUPPLY Qty: 1 0RF Rx Instructions: As directed venlafaxine 75 mg capsule,extended release 24hr 225 mg PO DAILY 30 Days Qty: 270 0RF trazodone 50 mg tablet 100 mg PO .HS PRN (Reason: insomnia) Qty: 180 0RF Seroquel 300 mg tablet 300 mg PO BEDTIME Qty: 90 0RF buspirone 10 mg tablet 10 mg PO 0900,2100 Qty: 180 0RF ibuprofen 200 mg capsule 400 mg PO QID PRN (DME) CPAP AUTO TITRATING 8-12CM See Rx Instructions .Route .MEDSUPPLY Qty: 1 0RF Rx Instructions: As directed Celebrex 100 mg capsule 100 mg PO BID PRN (Reason: pain) Qty: 180 1RF Hold Instructions: Resume on 06/02/22. Rx Instructions: Take with food levothyroxine 50 mcg tablet 50 mcg PO DAILY Qty: 90 1RF Rx Instructions: Take 1 tablet by mouth once daily tizanidine 2 mg tablet 2 mg PO Q8H PRN (Reason: muscle spasticity) Qty: 90 0RF levetiracetam 750 mg tablet extended release 24 hr 1,500 mg PO DAILY Qty: 180 3RF pantoprazole 40 mg tablet,delayed release (DR/EC) See Rx Instructions .ROUTE .COMPLEX Qty: 30 0RF Dose Instruction: TAKE 1 TABLET BY MOUTH EVERY DAY Rx Instructions: TAKE 1 TABLET BY MOUTH EVERY DAY metformin 500 mg tablet extended release 24 hr See Rx Instructions .ROUTE .COMPLEX Qty: 30 0RF Dose Instruction: TAKE 1 TABLET BY MOUTH EVERY DAY Rx Instructions: TAKE 1 TABLET BY MOUTH EVERY DAY Discharge Orders: Discharge ED (Routine); Ordered 09/23/23 Ordered By: Hansa Duckworth Referrals: Gauri Centeno DO [Primary Care Provider] - Discharge Diet: Usual diet Discharge Activity: Resume usual activity Patient Instructions: Anxiety (ED) Activity Restrictions/Additional Instructions: Please go directly to the crisis center for evaluation and treatment immediately after discharge from the emergency room. Thank you for choosing [facility] for your healthcare needs today. Please realize this is an emergency room and that we are providing you with a medical screening exam and this may not be complete and all inclusive of all the testing and or work up that you may need to determine your ailment or severity of your illness. You have been screened and evaluated and felt safe for discharge. Health conditions do change or evolve sometimes and as such it is important that you follow up with your Primary Doctor to be re checked, 3-5 days is a general good time frame for follow up. You are always welcome to return to the ED for re assessment if your symptoms are worsening or you have new concerns Coding Level of Care Code ED Senior Mortgage Underwriter for Bob Arevalo
== END 2023-09-23 12:18 | disposition home or self-care (01) ==
PROVIDERS: Emergency Provider Emergency Medicine; PCP Family Medicine Adult Medicine
DX: F41.9 Anxiety disorder, unspecified (principal); Z79.84 Long term (current) use of oral hypoglycemic drugs
CPT/HCPCS: 99281

== ENCOUNTER → 2023-09-25 13:32 | Outpatient (BNVA) | payer MEDICARE, MEDICAID, SELFPAY | PROVIDERS: PCP Family Medicine Adult Medicine; Visit Provider Family Medicine Adult Medicine | DX: E11.9 Type 2 diabetes mellitus without complications (principal); R79.89 Other specified abnormal findings of blood chemistry; E03.9 Hypothyroidism, unspecified; F31.9 Bipolar disorder, unspecified; G47.33 Obstructive sleep apnea (adult) (pediatric); M25.522 Pain in left elbow; Z79.899 Other long term (current) drug therapy | CPT/HCPCS: 80053; 80061; 83036; 84443; 85025 ==

== ENCOUNTER 2023-10-27 16:58 | Emergency (ER) | payer MEDICARE, MEDICAID, SELFPAY ==
[2023-10-27 16:59] VITALS: BP 173/120; PULSE 87; RESP 18; TEMP 36.7; O2SAT 99; BMI 34.7
--- NOTE | 2023-10-27 17:03 | ED_ITS ---
Documented by User: Nikos Rosales DO 10/28/23 07:05 HPI - General Adult 2 General: Chief complaint: Neck Pain/Injury Stated complaint: fall Time Seen by Provider: 10/27/23 16:59 Source: patient Mode of arrival: EMS History of Present Illness: 42-year-old male presents emergency room via EMS. He had fallen he had walked out of the bathtub was at the pool and slipped he states he landed directly on his buttocks. He felt a popping sensation he is concerned because he previously had neck surgery is complaining of pain throughout his entire back and pain in his right hip and leg. Did not strike his head there is no loss consciousness denies any other injury. Patient fell at the pool today states family friend reported hearing a pop. Patient presents with neck pain. Patient was in a c-collar by EMS. Patient denies any loss of consciousness. Patient does have a history of neck surgery with pins and screws placed in his neck. Onset (ago): minute(s) Location: back Severity: mild Quality: sharp Pain Consistency: constant Relieving factors: none Exacerbating factors: none Associated symptoms: Deny chest pain, confusion, cough, diaphoresis, decreased appetite, dyspnea, fevers/chills, headache(s), malaise, nausea, rash, palpitations, seizures, short of breath, syncope, vomiting or weakness Treatments prior to arrival: none Review of Systems 2 Const: Denies: fever(s), chills, malaise or diaphoresis Card: Denies: chest pain, palpitations or syncope Resp: Denies: dyspnea GI: Denies: abdominal pain, nausea or vomiting : Denies: dysuria, urinary frequency or urinary urgency Musc: Denies: neck pain or back pain Skin/Breast: Denies: rash Neuro: Denies: headache(s) or confusion PFSH ED 2 PFSH: Medical History Hearing loss Chronic otitis media Chronic right shoulder pain Hypothyroidism Asthma GERD (gastroesophageal reflux disease) Anxiety and depression Chronic schizophrenia Surgical History History of esophageal surgery got a quarter stuck in throat as a child S/P tympanostomy tube placement H/O knee surgery Social History Smoking and tobacco/nicotine status: never used tobacco/nicotine Second hand smoke exposure: No Alcohol intake: current Alcohol intake frequency: few times a month Alcohol type: beer and wine Substance/Drug Use: former Date of last use: 2014 Physical Exam 2 Const: GENERAL APPEARANCE: cooperative and comfortable O RIENTATION/CONSCIOUSNESS: Yes awake, Yes oriented to person, Yes oriented to place and Yes oriented to time GI: AUSCULTATION: Yes normoactive bowel sounds Extremity: COMMON NORMALS: normal to inspection, capillary refill normal, no clubbing, cyanosis or edema, no calf tenderness and no pedal edema Neuro: SENSORIUM/ORIENTATION: Yes oriented to person, Yes oriented to place and Yes oriented to time Skin: COMMON NORMALS: no rashes or lesions noted GENERAL SKIN EXAM: no rashes or lesions noted Course 2 Vital Signs: Vital signs: Vital Signs Temperature 98.1 F 10/27/23 16:59 Pulse Rate 82 10/27/23 19:51 Respiratory Rate 16 10/27/23 19:51 Blood Pressure 152/85 10/27/23 19:51 Pulse Oximetry 98 10/27/23 19:51 Oxygen Delivery Me thod Room Air 10/27/23 19:51 MDM - General Adult Medical Decision Making No focal deficits on exam. C-collar still in place. Imaging pending. Care signed out to Dr. Fraire at change of shift. See final notes for diagnosis and disposition. Patient care transferred over to myself at shift change, lab work was reviewed as well as all imaging all which was essentially benign. This was discussed with the patient. Patient is ready to go. Patient be discharged home. Lab Data 10/27/23 16:47 10/27/23 16:47 Radiology Impressions Cervical Spine X-Ray 10/27/23 17:17 IMPRESSION: No plain film evidence of acute fracture or dislocation. Foot X-Ray 10/27/23 17:17 IMPRESSION: No evidence of acute fracture. Lumbar Spine X-Ray 10/27/23 17:17 IMPRESSION: No plain film evidence of acute fracture. Thoracic Spine X-Ray 10/27/23 17:17 IMPRESSION: No plain film evidence of acute fracture . Laboratory Results WBC 7.32 10^3/uL (3.29-11.43) 10/27/23 16:47 RBC 5.51 10^6/uL (3.85-5.65) 10/27/23 16:47 Hgb 16.80 g/dL (11.27-16.99) 10/27/23 16:47 Hct 48.5 % (37-53) 10/27/23 16:47 MCV 88.0 fl (82-101) 10/27/23 16:47 MCH 30.5 pg (27-33) 10/27/23 16:47 MCHC 34.6 g/dL (30-55) 10/27/23 16:47 RDW 12.7 % (12.1-15.1) 10/27/23 16:47 Plt Count 276 10^3/cmm (157-399) 10/27/23 16:47 MPV 11.5 fL (7.4-10.4) H 10/27/23 16:47 Neut % (Auto) 53.4 % 10/27/23 16:47 Lymph % (Auto) 31.7 % 10/27/23 16:47 [place] % (Auto) 11.6 % 10/27/23 16:47 Eos % (Auto) 2.6 % 10/27/23 16:47 Baso % (Auto) 0.4 % 10/27/23 16:47 Neut # (Auto) 3.91 10^3/uL (1.8-7.7) 10/27/23 16:47 Lymph # (Auto) 2.3 10^3/uL (0.8-4.8) 10/27/23 16:47 [place] # (Auto) 0.9 10^3/uL (0.2-0.9) 10/27/23 16:47 Eos # (Auto) 0.2 10^3/uL (0.0-0.8) 10/27/23 16:47 Baso # (Auto) 0.0 10^3/uL (0.0-0.1) 10/27/23 16:47 Nucleated RBC % (auto) 0 % 10/27/23 16:47 Nucleated RBCs # 0.0 /100WBC 10/27/23 16:47 Sodium 137 mmol/L (136-145) 10/27/23 16:47 Potassium 4.2 mmol/L (3.5-5.1) 10/27/23 16:47 Chloride 99 mmol/L (98-107) 10/27/23 16:47 Carbon Dioxide 25 mmol/L (22-29) 10/27/23 16:47 Anion Gap 17.2 (5-19) 10/27/23 16:47 BUN 12 mg/dL (6-20) 10/27/23 16:47 Creatinine 0.8 mg/dL (0.7-1.2) 10/27/23 16:47 GFR Calculation 107.1 mL/min (90-130) 10/27/23 16:47 Glucose 131 mg/dL (65-115) H 10/27/23 16:47 POC Glucose 106 mg/dL (70-110) 10/27/23 19:04 Calculated Osmolality 286 mOsm/kg (285-295) 10/27/23 16:47 Calcium 10.0 mg/dL (8.5-10.5) 10/27/23 16:47 Total Bilirubin 0.5 mg/dL (0.15-1.2) 10/27/23 16:47 AST 39 U/L (0-40) 10/27/23 16:47 ALT 84 U/L (0-41) H 10/27/23 16:47 Alkaline Phosphatase 215 U/L (40-130) H 10/27/23 16:47 Total Protein 7.7 g/dL (6.6-8.7) 10/27/23 16:47 Albumin 4.8 g/dL (3.5-5.2) 10/27/23 16:47 Globulin 2.9 g/dL (1.3-4.6) 10/27/23 16:47 Urine Color Dark yellow (Yellow) A 10/27/23 18:46 Urine Appearance Clear (CLEAR) 10/27/23 18:46 Urine pH 5 (5-7) 10/27/23 18:46 Ur Specific Asher 1.030 (1.005-1.030) 10/27/23 18:46 Urine Protein Neg (Negative) 10/27/23 18:46 Urine Glucose (UA) Norm (Normal) 10/27/23 18:46 Urine Ketones Negative (Negative) 10/27/23 18:46 Urine Blood Neg (Negative) 10/27/23 18:46 Urine Nitrate Negative (Negative) 10/27/23 18:46 Urine Bilirubin Neg (Negative) 10/27/23 18:46 Urine Urobilinogen 4 mg/dL (Negative) H 10/27/23 18:46 Ur Leukocyte Esterase Negative (Negative) 10/27/23 18:46 Discharge Plan Discharge Patient Disposition: Home Clinical Impression: Musculoskeletal pain Fall Qualifiers: Encounter type: initial encounter Qualified Code(s): W19.XXXA - Unspecified fall, initial encounter Condition: Stable Prescriptions: No Action acetaminophen [Tylenol] 325 mg capsule 325 mg PO QID PRN (Reason: Pain) venlafaxine 75 mg capsule,extended release 24hr 225 mg PO DAILY 30 Days Qty: 270 0RF Seroquel 300 mg tablet 300 mg PO BEDTIME Qty: 90 0RF buspirone 10 mg tablet 10 mg PO 0900,2100 Qty: 180 0RF Celebrex 100 mg capsule 100 mg PO BID PRN (Reason: pain) Qty: 180 1RF Hold Instructions: Resume on 06/02/22. Rx Instructions: Take with food levothyroxine 50 mcg tablet 50 mcg PO DAILY Qty: 90 1RF metformin 500 mg tablet extended release 24 hr 500 mg PO DAILY Qty: 90 1RF pantoprazole 40 mg tablet,delayed release (DR/EC) 40 mg PO DAILY Qty: 90 1RF multivitamin Tablet 1 tab PO QAM Qty: 100 3RF (DME) CPAP AUTO TITRATING 8-12CM See Rx Instructions .Route .MEDSUPPLY Qty: 1 0RF Rx Instructions: As directed levetiracetam 750 mg tablet extended release 24 hr 1,500 mg PO DAILY Qty: 180 3RF trazodone 50 mg tablet 100 mg PO BEDTIME PRN (Reason: insomnia) Discharge Orders: Discharge ED (Routine); Ordered 10/27/23 Ordered By: Donnie Fraire Referrals: Aleks Boyle MD [Primary Care Provider] - 1 week Patient Instructions: Musculoskeletal Pain (ED) Activity Restrictions/Additional Instructions: Your evaluation in the ER with your lab work and imaging did not reveal any acute abnormality. There were no broken bones. It is thought you have musculoskeletal type pain. Please continue [id number] Tylenol and/or Motrin as needed for pain. Please follow-up with your family practice doctor within the next 7 days for further evaluation and treatment. Coding Level of Care Code ED Corset Fitter for Chg Fwd Documented by User: Donnie Fraire DO 10/27/23 20:37 HPI - General Adult 2 General: Chief complaint: Neck Pain/Injury Stated complaint: fall Time Seen by Provider: 10/27/23 16:59 History of Present Illness: Patient fell at the pool today states family friend reported hearing a pop. Patient presents with neck pain. Patient was in a c-collar by EMS. Patient denies any loss of consciousness. Patient does have a history of neck surgery with pins and screws placed in his neck. Review of Systems 2 General: Reports: 10 or more systems reviewed and unremarkable except in HPI and below PFSH ED 2 PFSH: Medical History Hearing loss Chronic otitis media Chronic right shoulder pain Hypothyroidism Asthma GERD (gastroesophageal reflux disease) Anxiety and depression Chronic schizophrenia Surgical History History of esophageal surgery got a quarter stuck in throat as a child S/P tympanostomy tube placement H/O knee surgery Social History Smoking and tobacco/nicotine status: never used tobacco/nicotine Second hand smoke exposure: No Alcohol intake: current Alcohol intake frequency: few times a month Alcohol type: beer and wine Substance/Drug Use: former Date of last use: 2014 Physical Exam 2 Const: COMMON NORMALS: no acute distress, average body habitus, patient oriented x3, no limitations, healthy appearing, alert and well nourished HENMT: COMMON NORMALS: normocephalic, hearing grossly normal bilaterally and external ears normal HEAD & SCALP: normocephalic EXTERNAL EAR: Yes external ears normal Neck/C-Spine: COMMON NORMALS: no JVD OTHER: In c-collar per EMS Chest: COMMONS NORMALS: normal inspection of the chest and normal palpation of entire chest wall Resp: COMMON NORMALS: normal respiratory effort, No retractions, No use of accessory muscles and clear to auscultation bilaterally AUSCULTATION: clear to auscultation bilaterally Cardio: COMMON NORMALS: no JVD, regular rate, regular rhythm, S1 normal heart sound present, S2 normal heart sound present, No gallops present (Cardio), No clicks present (Cardio), No murmurs present (Cardio) and No rub (Cardio) R ATE: regular rate RHYTHM: regular rhythm HEART SOUNDS: S1 normal heart sound present and S2 normal heart sound present GI: COMMON NORMALS: Normal to inspection, nondistended, normoactive bowel sounds present, Soft to palpation, non-tender, No hepatosplenomegaly present and no masses PALPATION: Yes Soft to palpation and Yes No hepatosplenomegaly present Neuro: COMMON NORMALS: patient oriented x3 SENSORIUM/ORIENTATION: Yes alert Course 2 Vital Signs: Vital signs: Vital Signs Temperature 98.1 F 10/27/23 16:59 Pulse Rate 82 10/27/23 19:51 Respiratory Rate 16 10/27/23 19:51 Blood Pressure 152/85 10/27/23 19:51 Pulse Oximetry 98 10/27/23 19:51 Oxygen Delivery Me thod Room Air 10/27/23 19:51 MDM - General Adult Medical Decision Making Patient care transferred over to myself at shift change, lab work was reviewed as well as all imaging all which was essentially benign. This was discussed with the patient. Patient is ready to go. Patient be discharged home. Medical Records I reviewed the patient's medical records. Lab Data I reviewed the patient's lab results. 10/27/23 16:47 10/27/23 16:47 Radiology Impressions Cervical Spine X-Ray 10/27/23 17:17 IMPRESSION: No plain film evidence of acute fracture or dislocation. Foot X-Ray 10/27/23 17:17 IMPRESSION: No evidence of acute fracture. Lumbar Spine X-Ray 10/27/23 17:17 IMPRESSION: No plain film evidence of acute fracture. Thoracic Spine X-Ray 10/27/23 17:17 IMPRESSION: No plain film evidence of acute fracture . Laboratory Results WBC 7.32 10^3/uL (3.29-11.43) 10/27/23 16:47 RBC 5.51 10^6/uL (3.85-5.65) 10/27/23 16:47 Hgb 16.80 g/dL (11.27-16.99) 10/27/23 16:47 Hct 48.5 % (37-53) 10/27/23 16:47 MCV 88.0 fl (82-101) 10/27/23 16:47 MCH 30.5 pg (27-33) 10/27/23 16:47 MCHC 34.6 g/dL (30-55) 10/27/23 16:47 RDW 12.7 % (12.1-15.1) 10/27/23 16:47 Plt Count 276 10^3/cmm (157-399) 10/27/23 16:47 MPV 11.5 fL (7.4-10.4) H 10/27/23 16:47 Neut % (Auto) 53.4 % 10/27/23 16:47 Lymph % (Auto) 31.7 % 10/27/23 16:47 [place] % (Auto) 11.6 % 10/27/23 16:47 Eos % (Auto) 2.6 % 10/27/23 16:47 Baso % (Auto) 0.4 % 10/27/23 16:47 Neut # (Auto) 3.91 10^3/uL (1.8-7.7) 10/27/23 16:47 Lymph # (Auto) 2.3 10^3/uL (0.8-4.8) 10/27/23 16:47 [place] # (Auto) 0.9 10^3/uL (0.2-0.9) 10/27/23 16:47 Eos # (Auto) 0.2 10^3/uL (0.0-0.8) 10/27/23 16:47 Baso # (Auto) 0.0 10^3/uL (0.0-0.1) 10/27/23 16:47 Nucleated RBC % (auto) 0 % 10/27/23 16:47 Nucleated RBCs # 0.0 /100WBC 10/27/23 16:47 Sodium 137 mmol/L (136-145) 10/27/23 16:47 Potassium 4.2 mmol/L (3.5-5.1) 10/27/23 16:47 Chloride 99 mmol/L (98-107) 10/27/23 16:47 Carbon Dioxide 25 mmol/L (22-29) 10/27/23 16:47 Anion Gap 17.2 (5-19) 10/27/23 16:47 BUN 12 mg/dL (6-20) 10/27/23 16:47 Creatinine 0.8 mg/dL (0.7-1.2) 10/27/23 16:47 GFR Calculation 107.1 mL/min (90-130) 10/27/23 16:47 Glucose 131 mg/dL (65-115) H 10/27/23 16:47 POC Glucose 106 mg/dL (70-110) 10/27/23 19:04 Calculated Osmolality 286 mOsm/kg (285-295) 10/27/23 16:47 Calcium 10.0 mg/dL (8.5-10.5) 10/27/23 16:47 Total Bilirubin 0.5 mg/dL (0.15-1.2) 10/27/23 16:47 AST 39 U/L (0-40) 10/27/23 16:47 ALT 84 U/L (0-41) H 10/27/23 16:47 Alkaline Phosphatase 215 U/L (40-130) H 10/27/23 16:47 Total Protein 7.7 g/dL (6.6-8.7) 10/27/23 16:47 Albumin 4.8 g/dL (3.5-5.2) 10/27/23 16:47 Globulin 2.9 g/dL (1.3-4.6) 10/27/23 16:47 Urine Color Dark yellow (Yellow) A 10/27/23 18:46 Urine Appearance Clear (CLEAR) 10/27/23 18:46 Urine pH 5 (5-7) 10/27/23 18:46 Ur Specific [place] 1.030 (1.005-1.030) 10/27/23 18:46 Urine Protein Neg (Negative) 10/27/23 18:46 Urine Glucose (UA) Norm (Normal) 10/27/23 18:46 Urine Ketones Negative (Negative) 10/27/23 18:46 Urine Blood Neg (Negative) 10/27/23 18:46 Urine Nitrate Negative (Negative) 10/27/23 18:46 Urine Bilirubin Neg (Negative) 10/27/23 18:46 Urine Urobilinogen 4 mg/dL (Negative) H 10/27/23 18:46 Ur Leukocyte Esterase Negative (Negative) 10/27/23 18:46 All radiology interpretation(s) finalized by discharge Discharge Plan Discharge Patient Disposition: Home Clinical Impression: Musculoskeletal pain Fall Qualifiers: Encounter type: initial encounter Qualified Code(s): W19.XXXA - Unspecified fall, initial encounter Condition: Stable Prescriptions: No Action acetaminophen [Tylenol] 325 mg capsule 325 mg PO QID PRN (Reason: Pain) venlafaxine 75 mg capsule,extended release 24hr 225 mg PO DAILY 30 Days Qty: 270 0RF Seroquel 300 mg tablet 300 mg PO BEDTIME Qty: 90 0RF buspirone 10 mg tablet 10 mg PO 0900,2100 Qty: 180 0RF Celebrex 100 mg capsule 100 mg PO BID PRN (Reason: pain) Qty: 180 1RF Hold Instructions: Resume on 06/02/22. Rx Instructions: Take with food levothyroxine 50 mcg tablet 50 mcg PO DAILY Qty: 90 1RF metformin 500 mg tablet extended release 24 hr 500 mg PO DAILY Qty: 90 1RF pantoprazole 40 mg tablet,delayed release (DR/EC) 40 mg PO DAILY Qty: 90 1RF multivitamin Tablet 1 tab PO QAM Qty: 100 3RF (DME) CPAP AUTO TITRATING 8-12CM See Rx Instructions .Route .MEDSUPPLY Qty: 1 0RF Rx Instructions: As directed levetiracetam 750 mg tablet extended release 24 hr 1,500 mg PO DAILY Qty: 180 3RF trazodone 50 mg tablet 100 mg PO BEDTIME PRN (Reason: insomnia) Discharge Orders: Discharge ED (Routine); Ordered 10/27/23 Ordered By: Donnie Fraire Referrals: Aleks Boyle MD [Primary Care Provider] - 1 week Patient Instructions: Musculoskeletal Pain (ED) Activity Restrictions/Additional Instructions: Your evaluation in the ER with your lab work and imaging did not reveal any acute abnormality. There were no broken bones. It is thought you have musculoskeletal type pain. Please continue [id number] Tylenol and/or Motrin as needed for pain. Please follow-up with your family practice doctor within the next 7 days for further evaluation and treatment. Coding Level of Care Code ED Corset Fitter for Bob Arevalo
[2023-10-27 17:08] LABS: Basophils % 0.4 %; Eosinophils # 0.2 10^3/uL (0.0-0.8); Eosinophils % 2.6 %; Hematocrit 48.5 % (37-53); Lymphocytes # 2.3 10^3/uL (0.8-4.8); Lymphocytes % 31.7 %; Mean Corpuscular HGB Conc 34.6 g/dL (30-55); Mean Corpuscular Hemoglobin 30.5 pg (27-33); Mean Platelet Volume 11.5 fL (7.4-10.4); Monocytes # 0.9 10^3/uL (0.2-0.9); Monocytes % 11.6 %; Neutrophils # 3.91 10^3/uL (1.8-7.7); Neutrophils % 53.4 %; Nucleated Red Blood Cells % 0 %; Platelet Count 276 10^3/cmm (157-399); Red Blood Count 5.51 10^6/uL (3.85-5.65); Red Cell Distribution Width 12.7 % (12.1-15.1); White Blood Count 7.32 10^3/uL (3.29-11.43)
--- NOTE | 2023-10-27 17:17 | XRR_ITS ---
PROCEDURE INFORMATION: Exam: XR Cervical Spine Exam date and time: 10/27/2023 5:43 PM Age: 42 years old Clinical indication: Injury or trauma; Fall; Blunt trauma; Prior surgery; Surgery date: 6+ months; Surgery type: C. Spine TECHNIQUE: Imaging protocol: Radiologic exam of the cervical spine. Views: 2 or 3 views. COMPARISON: CR XR cervical spine 3V* [id number] 07/22/2022 10:15 AM FINDINGS: Bones/joints: Subtle dextroscoliosis of the cervical spine. Alignment is otherwise intact. Extensive anterior fusion hardware appears stable. No plain film evidence of acute fracture or dislocation. Degenerative changes at C2-C3. Soft tissues: The soft tissues are within normal limits. XR/XR cervical spine 3V* [id number] IMPRESSION: No plain film evidence of acute fracture or dislocation.
--- NOTE | 2023-10-27 17:17 | XRR_ITS ---
PROCEDURE INFORMATION: Exam: XR Thoracic Spine Exam date and time: 10/27/2023 5:52 PM Age: 42 years old Clinical indication: Injury or trauma; Fall; Blunt trauma (contusions or hematomas) TECHNIQUE: Imaging protocol: Radiologic exam of the thoracic spine. Views: 3 views. COMPARISON: CR (NECK, ) 10/27/2023 5:43 PM FINDINGS: Bones/joints: Subtle S shaped scoliosis of the thoracic spine. Normal thoracic kyphosis. Alignment is otherwise intact. No plain film evidence of acute fracture . No significant degenerative change. Soft tissues: The soft tissues are within normal limits. XR/XR thoracic spine 3V* [id number] IMPRESSION: No plain film evidence of acute fracture .
--- NOTE | 2023-10-27 17:17 | XRR_ITS ---
PROCEDURE INFORMATION: Exam: XR Lumbosacral Spine Exam date and time: 10/27/2023 5:56 PM Age: 42 years old Clinical indication: Injury or trauma; Fall; Blunt trauma (contusions or hematomas) TECHNIQUE: Imaging protocol: Radiologic exam of the lumbosacral spine. Views: 2 or 3 views. COMPARISON: CR (CHEST, ) 10/27/2023 5:52 PM FINDINGS: Bones/joints: Slight levoscoliosis with a mild rotatory component. Alignment is otherwise intact. Vertebral body heights are well-maintained. No plain film evidence of acute fracture. No significant degenerative changes noted. Soft tissues: The soft tissues are within normal limits. XR/XR lumbar spine 2-3V* [id number] IMPRESSION: No plain film evidence of acute fracture.
--- NOTE | 2023-10-27 17:17 | XRR_ITS ---
PROCEDURE INFORMATION: Exam: XR Right Foot Exam date and time: 10/27/2023 6:00 PM Age: 42 years old Clinical indication: Injury or trauma; Fall; Blunt trauma; Foot; Right TECHNIQUE: Imaging protocol: Radiologic exam of the right foot. Views: 3 or more views. COMPARISON: No relevant prior studies available. FINDINGS: Bones/joints: Normal mineralization and alignment. Hammertoes of the 4th and 5th digits limit evaluation of the phalanges. No evidence of acute fracture. Soft tissues: The soft tissues are within normal limits. XR/XR foot RT min 3V* [id number] IMPRESSION: No evidence of acute fracture.
[2023-10-27 17:28] LABS: Alanine Aminotransferase 84 U/L (0-41); Albumin Level 4.8 g/dL (3.5-5.2); Alkaline Phosphatase 215 U/L (40-130); Anion Gap 17.2 (5-19); Aspartate Amino Transferase 39 U/L (0-40); Blood Urea Nitrogen 12 mg/dL (6-20); Carbon Dioxide 25 mmol/L (22-29); Chloride 99 mmol/L (98-107); Creatinine Clr Calc Pharmacy 170.6736; Globulin 2.9 g/dL (1.3-4.6); Glomerular Filtration Rate 107.1 mL/min (90-130); Glucose 131 mg/dL (65-115); Osmolality Calculated 286 mOsm/kg (285-295); Potassium 4.2 mmol/L (3.5-5.1); Sodium 137 mmol/L (136-145); Total Bilirubin 0.5 mg/dL (0.15-1.2); Total Protein 7.7 g/dL (6.6-8.7)
[2023-10-27 17:36] VITALS: O2SAT 98
[2023-10-27] MEDS: tetanus-dipt-pertussis 0.5 mL SDV IM (18:08)
[2023-10-27] MEDS: acetaminophen 325 mg Tablet 650 MG PO (18:16)
[2023-10-27 18:20] VITALS: O2SAT 95
[2023-10-27 18:59] LABS: Add Urine Microscopic? NO; Charge for UA Resulting for Rev
[2023-10-27 19:04] LABS: Bilirubin Urine Neg (Negative); Blood Urine Neg (Negative); Glucose Urine UA Norm (Normal); Ketones Urine Negative (Negative); Leukocyte Esterase Urine Negative (Negative); Nitrate Urine Negative (Negative); Protein Urine Neg (Negative); Urine Appearance Clear (CLEAR); Urine Color Dark Yellow (Yellow); Urobilinogen Urine 4 mg/dL (Negative); pH Urine 5 (5-7)
[2023-10-27 19:08] LABS: Glucose Point of Care 106 mg/dL (70-110)
[2023-10-27 19:50] VITALS: BP 152/85; PULSE 88; RESP 16; O2SAT 99
[2023-10-27 19:51] VITALS: BP 152/85; PULSE 82; RESP 16; O2SAT 98
== END 2023-10-27 19:50 | disposition home or self-care (01) ==
PROVIDERS: Emergency Provider Family Medicine; PCP Family Medicine Adult Medicine
DX: M54.2 Cervicalgia (principal); M25.551 Pain in right hip; M79.604 Pain in right leg; J45.909 Unspecified asthma, uncomplicated; E03.9 Hypothyroidism, unspecified; Z79.899 Other long term (current) drug therapy
CPT/HCPCS: 36416; 72040; 72072; 72100; 73630; 80053; 81003; 82962; 85025; 90471; 90715; 99284

== ENCOUNTER 2023-11-05 19:29 | Inpatient (IN) | payer MEDICARE, MEDICAID, SELFPAY ==
[2023-11-05 19:31] VITALS: BP 133/106; PULSE 85; RESP 18; TEMP 36.9; O2SAT 97; BMI 35.3
--- NOTE | 2023-11-05 19:38 | W.ED.PSYCHS ---
HPI - Psych General: Chief Complaint: Psychiatric Symptoms Stated Complaint: SI Time Seen by Provider: 11/05/23 19:30 Source: patient, EMS and police Mode of arrival: EMS Limitations: no limitations History of Present Illness: 42-year-old male who presents here with EMS with suicidal ideations. He states that he had had suicidal thoughts throughout the day he had had a knife in his throat and sent text to family members. He states that he was going to slit his throat but thought better about and called EMS. He denies any worsening proving factors Associated symptoms: Reports depression and suicidal ideation Review of Systems Const: Denies: fever(s), chills, body aches or change in appetite ENMT: Denies: throat pain or dental pain Card: Denies: chest pain Resp: Denies: dyspnea GI: Denies: abdominal pain, nausea, vomiting or diarrhea Musc: Denies: neck pain or back pain Skin/Breast: Denies: rash Neuro: Denies: headache(s) Psych: Reports: depression and suicidal ideation FOR[facility]LY [facility] ED PFSH: Medical History Hearing loss Chronic otitis media Chronic right shoulder pain Hypothyroidism Asthma GERD (gastroesophageal reflux disease) Anxiety and depression Chronic schizophrenia Surgical History History of esophageal surgery got a quarter stuck in throat as a child S/P tympanostomy tube placement H/O knee surgery Social History Smoking and tobacco/nicotine status: never used tobacco/nicotine Second hand smoke exposure: No Alcohol intake: current Alcohol intake frequency: few times a month Alcohol type: beer and wine Substance/Drug Use: former Date of last use: 2014 Physical Exam Const: COMMON NORMALS: no acute distress, patient oriented x3 and healthy appearing HENMT: COMMON NORMALS: normocephalic and atraumatic HEAD & SCALP: normocephalic and atraumatic Neck/C-Spine: COMMON NORMALS: full ROM and supple Chest: COMMONS NORMALS: normal inspection of the chest Resp: COMMON NORMALS: normal respiratory effort Cardio: COMMON NORMALS: regular rate, regular rhythm and No murmurs present (Cardio) RATE: regular rate RHYTHM: regular rhythm Extremity: COMMON NORMALS: normal to inspection and full ROM Neuro: COMMON NORMALS: patient oriented x3, moves all extremities and no focal motor deficits Psych: COMMON NORMALS: mental status grossly normal, Normal thought process present and cooperative MOOD & AFFECT: Yes depressed mood THOUGHT PROCESS: Normal thought process present THOUGHT CONTENT: Yes Suicidality present Skin: COMMON NORMALS: no rashes or lesions noted and no wounds GENERAL SKIN EXAM: no rashes or lesions noted Course Vital Signs: Vital signs: Vital Signs Temperature 98.5 F 11/05/23 19:31 Pulse Rate 85 11/05/23 19:31 Respiratory Rate 18 11/05/23 19:31 Blood Pressure 133/106 11/05/23 19:31 Pulse Oximetry 97 11/05/23 19:31 Oxygen Delivery Me thod Room Air 11/05/23 19:31 MDM - Psych Medical Decision Making Patient presents here with suicidal ideations patient's medically cleared here I did speak to Dr. Alvarez will admit under 96-hour hold Medical Records I reviewed the patient's medical records. Lab Data I reviewed the patient's lab results. 11/05/23 19:49 11/05/23 19:49 Laboratory Results WBC 9.21 10^3/uL (3.29-11.43) 11/05/23 19:49 RBC 5.52 10^6/uL (3.85-5.65) 11/05/23 19:49 Hgb 16.50 g/dL (11.27-16.99) 11/05/23 19:49 Hct 48.2 % (37-53) 11/05/23 19:49 MCV 87.3 fl (82-101) 11/05/23 19:49 MCH 29.9 pg (27-33) 11/05/23 19:49 MCHC 34.2 g/dL (30-55) 11/05/23 19:49 RDW 12.6 % (12.1-15.1) 11/05/23 19:49 Plt Count 271 10^3/cmm (157-399) 11/05/23 19:49 MPV 11.0 fL (7.4-10.4) H 11/05/23 19:49 Neut % (Auto) 60.9 % 11/05/23 19:49 Lymph % (Auto) 25.2 % 11/05/23 19:49 Hood % (Auto) 10.5 % 11/05/23 19:49 Eos % (Auto) 2.3 % 11/05/23 19:49 Baso % (Auto) 0.4 % 11/05/23 19:49 Neut # (Auto) 5.61 10^3/uL (1.8-7.7) 11/05/23 19:49 Lymph # (Auto) 2.3 10^3/uL (0.8-4.8) 11/05/23 19:49 Hood # (Auto) 1.0 10^3/uL (0.2-0.9) H 11/05/23 19:49 Eos # (Auto) 0.2 10^3/uL (0.0-0.8) 11/05/23 19:49 Baso # (Auto) 0.0 10^3/uL (0.0-0.1) 11/05/23 19:49 Nucleated RBC % (auto) 0 % 11/05/23 19:49 Nucleated RBCs # 0.0 /100WBC 11/05/23 19:49 Sodium 142 mmol/L (136-145) 11/05/23 19:49 Potassium 4.1 mmol/L (3.5-5.1) 11/05/23 19:49 Chloride 102 mmol/L (98-107) 11/05/23 19:49 Carbon Dioxide 26 mmol/L (22-29) 11/05/23 19:49 Anion Gap 18.1 (5-19) 11/05/23 19:49 BUN 15 mg/dL (6-20) 11/05/23 19:49 Creatinine 0.9 mg/dL (0.7-1.2) 11/05/23 19:49 GFR Calculation 93.5 mL/min (90-130) 11/05/23 19:49 Glucose 138 mg/dL (65-115) H 11/05/23 19:49 POC Glucose 126 mg/dL (70-110) H 11/05/23 20:02 Calculated Osmolality 297 mOsm/kg (285-295) H 11/05/23 19:49 Calcium 9.2 mg/dL (8.5-10.5) 11/05/23 19:49 Total Bilirubin 0.3 mg/dL (0.15-1.2) 11/05/23 19:49 AST 36 U/L (0-40) 11/05/23 19:49 ALT 73 U/L (0-41) H 11/05/23 19:49 Alkaline Phosphatase 259 U/L (40-130) H 11/05/23 19:49 Total Protein 7.8 g/dL (6.6-8.7) 11/05/23 19:49 Albumin 4.6 g/dL (3.5-5.2) 11/05/23 19:49 Globulin 3.2 g/dL (1.3-4.6) 11/05/23 19:49 TSH 1.37 uIU/mL (0.27-4.20) 11/05/23 19:49 Salicylates < 0.3 mg/dL (3-10) L 11/05/23 19:49 Urine Opiates Screen Negative ng/mL (Negative) 11/05/23 19:57 Acetaminophen < 5.0 ug/mL (10-30) L 11/05/23 19:49 Ur Barbiturates Screen Negative ng/mL (Negative) 11/05/23 19:57 Ur Phencyclidine Scrn Negative ng/mL (Negative) 11/05/23 19:57 Ur Amphetamines Screen Negative ng/mL (Negative) 11/05/23 19:57 U Benzodiazepines Scrn Negative ng/mL (Negative) 11/05/23 19:57 Urine Cocaine Screen Negative ng/mL (Negative) 11/05/23 19:57 U Marijuana (THC) Screen Negative ng/mL (Negative) 11/05/23 19:57 Ethyl Alcohol < 10 mg/dL (0-10) 11/05/23 19:49 All radiology interpretation(s) finalized by discharge Discharge Plan Discharge Patient Disposition: Admitted As Inpatient Clinical Impression: Suicidal ideation Condition: Stable Coding Level of Care Code ED Captain Room Service for Bob Arevalo
[2023-11-05 19:58] LABS: Basophils % 0.4 %; Eosinophils # 0.2 10^3/uL (0.0-0.8); Eosinophils % 2.3 %; Hematocrit 48.2 % (37-53); Lymphocytes # 2.3 10^3/uL (0.8-4.8); Lymphocytes % 25.2 %; Mean Corpuscular HGB Conc 34.2 g/dL (30-55); Mean Corpuscular Hemoglobin 29.9 pg (27-33); Mean Corpuscular Volume 87.3 fl (82-101); Monocytes % 10.5 %; Neutrophils # 5.61 10^3/uL (1.8-7.7); Neutrophils % 60.9 %; Nucleated Red Blood Cells % 0 %; Platelet Count 271 10^3/cmm (157-399); Red Blood Count 5.52 10^6/uL (3.85-5.65); Red Cell Distribution Width 12.6 % (12.1-15.1); White Blood Count 9.21 10^3/uL (3.29-11.43)
[2023-11-05 20:05] LABS: Glucose Point of Care 126 mg/dL (70-110)
--- NOTE | 2023-11-05 20:05 | PC.NURSE ---
96 Hour Involuntary Hold Patient Rights have been read to the patient and a copy of the same has been given to him. Braid Cutter Sandoval Angel was present at bedside. All questions have been answered to the patient's satisfaction. Patient verbally acknowledges understanding of Rights.
[2023-11-05 20:17] LABS: Amphetamines Screen Urine Negative (Negative); Barbiturates Screen Urine Negative (Negative); Benzodiazepines Screen Urine Negative (Negative); Cocaine Screen Urine Negative (Negative); Opiate Screen Urine Negative (Negative); PCP Screen Urine Negative (Negative); THC Screen Urine Negative (Negative)
[2023-11-05 20:22] LABS: Alanine Aminotransferase 73 U/L (0-41); Albumin Level 4.6 g/dL (3.5-5.2); Alkaline Phosphatase 259 U/L (40-130); Anion Gap 18.1 (5-19); Aspartate Amino Transferase 36 U/L (0-40); Blood Urea Nitrogen 15 mg/dL (6-20); Calcium 9.2 mg/dL (8.5-10.5); Carbon Dioxide 26 mmol/L (22-29); Chloride 102 mmol/L (98-107); Creatinine Clr Calc Pharmacy 153.1099; Globulin 3.2 g/dL (1.3-4.6); Glomerular Filtration Rate 93.5 mL/min (90-130); Glucose 138 mg/dL (65-115); Osmolality Calculated 297 mOsm/kg (285-295); Potassium 4.1 mmol/L (3.5-5.1); Sodium 142 mmol/L (136-145); Thyroid Stimulating Hormone 1.37 uIU/mL (0.27-4.20); Total Bilirubin 0.3 mg/dL (0.15-1.2); Total Protein 7.8 g/dL (6.6-8.7)
[2023-11-05 20:26] LABS: Acetaminophen < 5.0 ug/mL (10-30); Alcohol Level < 10 mg/dL (0-10); Salicylate < 0.3 mg/dL (3-10)
--- NOTE | 2023-11-05 21:31 | PC.NURSE ---
Report called to Obdulio PORRAS in [facility]; all questions and concerns were addressed at time of report.
[2023-11-06] MEDS: quetiapine 300 mg Tablet PO ×2 (00:28→20:03)
[2023-11-06] MEDS: BuSPIRONE 10 mg Tablet PO ×3 (00:29→20:03)
[2023-11-06] MEDS: trazodone 50 mg Tablet 100 MG PO (00:37)
[2023-11-06 01:56] VITALS: BP 133/77; PULSE 79; RESP 15; TEMP 36.7; O2SAT 97
[2023-11-06 06:00] VITALS: BP 102/64; PULSE 76; RESP 17; TEMP 36.4; O2SAT 94
[2023-11-06] MEDS: levothyroxine 50 mcg Tablet PO (06:01)
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
[2023-11-06 08:03] LABS: Glucose Point of Care 156 mg/dL (70-110)
[2023-11-06] MEDS: metformin XR 500 MG Tablet PO (09:26)
[2023-11-06] MEDS: multivitamin therapeutic Tablet 1 TAB PO (09:26)
[2023-11-06] MEDS: CELEcoxib 100 mg Capsule PO ×2 (09:26→20:03)
[2023-11-06] MEDS: pantoprazole DR 40 mg Tablet PO (09:26)
[2023-11-06] MEDS: venlafaxine ER (24HR) 75 mg Capsule 225 MG PO (09:26)
[2023-11-06] MEDS: LEVETIRACETAM 750 MG 1500 EACH PO (09:27)
--- NOTE | 2023-11-06 09:53 | PC.NURSE ---
IN BED RESTING AROUSES TO VOICE. DENIES SI/HI AND AVH AT THIS TIME. RATES PAIN 6/10 REQUEST CELEBREX FOR PAIN. RATES ANXIETY 3/10 AND DEPRESSION 0/10. PT STATES GOAL FOR THE DAY IS HOPEFULLY TO BE UP FOR AFTERNOON GROUP. REPORTS HE SLEPT GOOD. PT IS NOTED TO BE WITHDRAWN TO ROOM. ALL QUESTIONS ANSWERED AND SUPPORT VOICED.
[2023-11-06 12:11] LABS: Glucose Point of Care 132 mg/dL (70-110)
[2023-11-06] MEDS: acetaminophen 325 mg Tablet 650 MG PO (12:37)
[2023-11-06 14:00] VITALS: BP 122/78; PULSE 97; RESP 20; TEMP 36.7; O2SAT 98
[2023-11-06 20:36] VITALS: BP 134/87; PULSE 93; RESP 18; TEMP 36.6; O2SAT 97
[2023-11-07 06:00] VITALS: BP 109/63; PULSE 98; RESP 18; O2SAT 94
--- NOTE | 2023-11-07 08:19 | P.NPUPN_ITS ---
Subjective NPU 2 Subjective: Patient presented today reporting that he is doing fine with the medication changes. We discussed thinking about increasing his Effexor including the risks, benefits and alternatives and he understood and agreed to continuing this conversation as is documented in this note. We discussed that he was seeming to not have additional concerns and so thoughts about increasing it versus leaving that to his outpatient team are leaning towards leaving it to his outpatient team. He endorsed thinking that he was doing better and we discussed Dr. Rivera returning tomorrow but that the likelihood would be that he will return to his residential facility likely by Thursday. He denied any side effects of medications. Mental Status Exam 2 MSE Comments: This is an obese, white male in hospital scrubs, with limited grooming, and eye contact. No abnormal movements except for mild psychomotor agitation. Cooperative with exam mild distress. Speech was slightly increased rate and volume. Mood described as okay/better; affect congruent. Thought process, organized. Thought content: patient denied any suicidal or homicidal ideation, there were no delusions reported or noted, patient denied any auditory or visual hallucinations. Attention, concentration, and memory appear intact but were not formally tested. He is alert and oriented x 3. Insight and judgment appear fair and impulse control appears limited. Vitals/I&O/Wt Last Vital Signs Temp 97.9 F 11/06/23 20:36 Pulse 98 11/07/23 06:00 Resp 18 11/07/23 06:00 BP 109/63 11/07/23 06:00 Pulse Ox 94 11/07/23 06:00 O2 Del Method Room Air 11/06/23 06:00 Weight last 48 hrs Weight 124.738 kg Data NPU 11/05/23 19:49 11/05/23 19:49 A&P Assessment and plan (1) Bipolar 1 disorder: (2) Depression: (3) Borderline personality disorder: (4) Suicidal ideation: (5) Partner relational problem: Plan This is a 37-year-old, white male, with a long history of mental health and addiction issues. He presents dealing with significant mental health challenges, including suicidal ideation triggered by personal stressors. They have a history of multiple psychiatric conditions and have been on medication from a young age. Despite these challenges, the patient is able to live independently and manage their finances. They have a support system but struggle to reach out during crisis situations. RECOMMENDATION AND PLAN: 1.? Continue current medication and consider some adjustments. Increased BuSpar to 15 mg p.o. 3 times daily. Will consider increasing the Effexor but will try to talk to outpatient provider. 2.? Encourage individual, group, and milieu therapy. 3.? Continue q-15 minute checks for safety. 4.? Obtain collateral information. Involuntary Hold Information 2 96 Hour Hold: 96 Hour Involuntary Admission: Yes 96 Hour Hold Ending Date: 11/11/23 96 Hour Hold Ending Time: 19:45 Attestations NPU 2 Medical Necessity Statement*: Inpatient hospitalization is medically necessary and the clinically appropriate intervention, at this time. We will monitor medications and make changes as indicated. Likely length of stay is 2-4 days. Coding Level of Care Code Acute Code for [facility] Fwd Diagnoses Bipolar 1 disorder F31.9 Depression F32.A Borderline personality disorder F60.3 Suicidal ideation R45.851 Partner relational problem Z63.0
[2023-11-07] MEDS: LEVETIRACETAM 750 MG 1500 EACH PO (08:29)
[2023-11-07] MEDS: pantoprazole DR 40 mg Tablet PO (08:29)
[2023-11-07] MEDS: BuSPIRONE 10 mg Tablet PO (08:29)
[2023-11-07] MEDS: multivitamin therapeutic Tablet 1 TAB PO (08:29)
[2023-11-07] MEDS: venlafaxine ER (24HR) 75 mg Capsule 225 MG PO (08:29)
[2023-11-07] MEDS: levothyroxine 50 mcg Tablet PO (08:29)
[2023-11-07] MEDS: metformin XR 500 MG Tablet PO (08:29)
[2023-11-07 11:53] LABS: Glucose Point of Care 176 mg/dL (70-110)
[2023-11-07 14:00] VITALS: BP 126/88; PULSE 86; RESP 16; TEMP 37.2; O2SAT 99
[2023-11-07] MEDS: BuSPIRONE 10 mg Tablet 15 MG PO ×2 (14:23→20:36)
[2023-11-07 20:09] VITALS: BP 125/85; PULSE 94; RESP 18; TEMP 36.8; O2SAT 96
[2023-11-07] MEDS: quetiapine 300 mg Tablet PO (20:36)
[2023-11-07] MEDS: CELEcoxib 100 mg Capsule PO (20:38)
[2023-11-08 06:00] VITALS: BP 111/75; PULSE 70; RESP 16; O2SAT 94
[2023-11-08] MEDS: levothyroxine 50 mcg Tablet PO (08:20)
[2023-11-08] MEDS: LEVETIRACETAM 750 MG 1500 EACH PO (08:20)
[2023-11-08] MEDS: BuSPIRONE 10 mg Tablet 15 MG PO ×3 (08:20→20:50)
[2023-11-08] MEDS: pantoprazole DR 40 mg Tablet PO (08:20)
[2023-11-08] MEDS: multivitamin therapeutic Tablet 1 TAB PO (08:20)
[2023-11-08] MEDS: metformin XR 500 MG Tablet PO (08:20)
[2023-11-08] MEDS: venlafaxine ER (24HR) 75 mg Capsule 225 MG PO (08:20)
[2023-11-08 13:21] LABS: Glucose Point of Care 182 mg/dL (70-110)
[2023-11-08 14:00] VITALS: BP 148/94; PULSE 88; RESP 16; TEMP 37.1; O2SAT 93
[2023-11-08] MEDS: acetaminophen 325 mg Tablet 650 MG PO (15:15)
--- NOTE | 2023-11-08 15:55 | P.NPUPN_ITS ---
Subjective NPU 2 Subjective: 42-year-old male with a history of borde rline personality disorder, depression and impulse control disorder admitted with suicidal ideation. The patient had stated that he was no longer feeling suicidal. He had reported that he had sent out a group text stating that his life was not worth living. He reports feeling better today. He had reported having chronic problems with managing his anxiety and stated that he needed to receive follow-up with a therapist to help him better manage his emotions. He had reported adequate sleep. He had reported compliance with his medications. Mental Status Exam 2 MSE Comments: This is an obese, white male in hospital scrubs, with limited grooming, and eye contact. No abnormal movements except for mild psychomotor agitation. He was cooperative with exam and in mild distress. Speech was slightly increased in rate and volume. Mood described as better; His affect was mood congruent and brighter. Thought process was linear and organized. Thought content: patient denied any suicidal or homicidal ideation, there were no delusions reported or noted, patient denied any auditory or visual hallucinations. Attention, concentration, and memory appear intact but were not formally tested. He is alert and oriented x 3. Insight and judgment appear fair and impulse control appears limited. Vitals/I&O/Wt Last Vital Signs Temp 98.8 F 11/08/23 14:00 Pulse 88 11/08/23 14:00 Resp 16 11/08/23 14:00 BP 148/94 11/08/23 14:00 Pulse Ox 93 11/08/23 14:00 O2 Del Method Room Air 11/08/23 14:00 Weight last 48 hrs Weight 125.554 kg Data NPU 11/05/23 19:49 11/05/23 19:49 A&P Assessment and plan (1) Bipolar 1 disorder: (2) Depression: (3) Borderline personality disorder: (4) Suicidal ideation: (5) Partner relational problem: Plan This is a 37-year-old, white male, with a long history of mental health and addiction issues. He presents dealing with significant mental health challenges, including suicidal ideation triggered by personal stressors. They have a history of multiple psychiatric conditions and have been on medication from a young age. Despite these challenges, the patient is able to live independently and manage their finances. They have a support system but struggle to reach out during crisis situations. RECOMMENDATION AND PLAN: 1.? Continue current medication and consider some adjustments. Continue Effexor XR 225mg in am, Buspar 15mg tid. 2.? Encourage individual, group, and milieu therapy. 3.? Continue q-15 minute checks for safety. 4.? Reengage patient in individual therapy on outpatient basis. Involuntary Hold Information 2 96 Hour Hold: 96 Hour Involuntary Admission: Yes 96 Hour Hold Ending Date: 11/11/23 96 Hour Hold Ending Time: 19:45 Attestations NPU 2 Medical Necessity Statement*: Inpatient hospitalization is medically necessary and the clinically appropriate intervention, at this time. We will monitor medications and make changes as indicated. His Likely length of stay is 1-3 days. Coding Level of Care Code Acute Code for [facility] Fwd Diagnoses Bipolar 1 disorder F31.9 Depression F32.A Borderline personality disorder F60.3 Suicidal ideation R45.851 Partner relational problem Z63.0
[2023-11-08 20:00] VITALS: BP 132/87; PULSE 81; RESP 18; TEMP 36.5; O2SAT 97
[2023-11-08] MEDS: quetiapine 300 mg Tablet PO (20:50)
[2023-11-08] MEDS: CELEcoxib 100 mg Capsule PO (20:50)
--- NOTE | 2023-11-08 21:59 | PC.NURSE ---
Pt's behavior and demeanor is intrusive but mostly exciteable.
[2023-11-09 06:00] VITALS: BP 126/79; PULSE 76; RESP 18; O2SAT 95
--- NOTE | 2023-11-09 06:02 | PC.NURSE ---
Pt is given a pain level of 0/10per FLACC scale by the fact that he is sleeping soundly
[2023-11-09] MEDS: metformin XR 500 MG Tablet PO (08:28)
[2023-11-09] MEDS: pantoprazole DR 40 mg Tablet PO (08:28)
[2023-11-09] MEDS: levothyroxine 50 mcg Tablet PO (08:28)
[2023-11-09] MEDS: venlafaxine ER (24HR) 75 mg Capsule 225 MG PO (08:28)
[2023-11-09] MEDS: BuSPIRONE 10 mg Tablet 15 MG PO ×2 (08:28→13:48)
[2023-11-09] MEDS: LEVETIRACETAM 750 MG 1500 EACH PO (08:29)
[2023-11-09] MEDS: multivitamin therapeutic Tablet 1 TAB PO (08:29)
[2023-11-09 11:16] LABS: Glucose Point of Care 150 mg/dL (70-110)
[2023-11-09] MEDS: CELEcoxib 100 mg Capsule PO (11:18)
[2023-11-09 13:13] VITALS: BP 126/79; PULSE 76; RESP 18; O2SAT 95
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
[2023-11-09 13:53] VITALS: BP 128/86; PULSE 92; RESP 16; TEMP 36.6; O2SAT 96
--- NOTE | 2023-11-09 14:03 | DCPLANNER ---
IMM completed 11/09/23 @ 1305. Pt was given a copy of rights and he stated he understood his rights.
== END 2023-11-09 17:08 | disposition home or self-care (01) | DRG 885 ==
LOC: ER 21:03 → NP 21:06
PROVIDERS: Admitting Provider Psychiatry & Neurology Psychiatry; Emergency Provider Emergency Medicine; PCP Family Medicine Adult Medicine; Visit Provider Psychiatry & Neurology Psychiatry
DX: F31.9 Bipolar disorder, unspecified (principal); R45.851 Suicidal ideations; F60.3 Borderline personality disorder; Z63.0 Problems in relationship with spouse or partner; E03.9 Hypothyroidism, unspecified; K21.9 Gastro-esophageal reflux disease without esophagitis; G89.29 Other chronic pain; M25.511 Pain in right shoulder
CPT/HCPCS: 36415; 36416; 80053; 80306; 80307; 82962; 84443; 85025; 97150; 97165; 99285

== ENCOUNTER → 2024-02-24 09:07 | Outpatient (BNVA) | payer MEDICAID, MEDICARE, SELFPAY | PROVIDERS: PCP Physician Assistant; Visit Provider Specialist | DX: G40.209 Localization-related (focal) (partial) symptomatic epilepsy and epileptic syndromes with complex partial seizures, not intractable, without status epilepticus (principal); G40.109 Localization-related (focal) (partial) symptomatic epilepsy and epileptic syndromes with simple partial seizures, not intractable, without status epilepticus | CPT/HCPCS: 99214 ==

== ENCOUNTER → 2024-04-19 07:33 | Outpatient (BNVA) | payer MEDICARE, MEDICAID, SELFPAY | PROVIDERS: PCP Physician Assistant; Referring Provider Specialist; Visit Provider Specialist | DX: G40.109 Localization-related (focal) (partial) symptomatic epilepsy and epileptic syndromes with simple partial seizures, not intractable, without status epilepticus (principal) | CPT/HCPCS: 95812 ==

== ENCOUNTER 2024-04-21 03:14 | Emergency (ER) | payer MEDICARE, MEDICAID, SELFPAY ==
[2024-04-21 03:15] VITALS: BP 117/96; PULSE 113; RESP 18; TEMP 36.7; O2SAT 95
[2024-04-21] MEDS: ketorolac 30 mg/mL INJ IVP (03:29)
[2024-04-21] MEDS: ondansetron 2 mg/ML SDV 2 mL 8 MG IVP (03:29)
[2024-04-21] MEDS: HYDROmorphone 1 mg/mL INJ 1 mL IVP (03:29)
[2024-04-21 03:37] LABS: Basophils % 0.2 %; Eosinophils # 0.1 10^3/uL (0.0-0.8); Eosinophils % 0.4 %; Hematocrit 51.9 % (37-53); Lymphocytes # 1.2 10^3/uL (0.8-4.8); Lymphocytes % 9.3 %; Mean Corpuscular HGB Conc 34.9 g/dL (30-55); Mean Corpuscular Hemoglobin 29.6 pg (27-33); Mean Corpuscular Volume 84.9 fl (82-101); Mean Platelet Volume 10.7 fL (7.4-10.4); Monocytes # 1.1 10^3/uL (0.2-0.9); Monocytes % 7.9 %; Neutrophils % 81.7 %; Nucleated Red Blood Cells % 0 %; Platelet Count 265 10^3/cmm (157-399); Red Blood Count 6.11 10^6/uL (3.85-5.65); Red Cell Distribution Width 12.3 % (12.1-15.1); White Blood Count 13.23 10^3/uL (3.29-11.43)
[2024-04-21 03:56] LABS: Alanine Aminotransferase 84 U/L (0-41); Albumin Level 4.4 g/dL (3.5-5.2); Alkaline Phosphatase 186 U/L (40-130); Anion Gap 22.3 (5-19); Aspartate Amino Transferase 75 U/L (0-40); Blood Urea Nitrogen 18 mg/dL (6-20); Calcium 9.4 mg/dL (8.5-10.5); Carbon Dioxide 17 mmol/L (22-29); Chloride 100 mmol/L (98-107); Creatinine Clr Calc Pharmacy 0.4385; Globulin 2.7 g/dL (1.3-4.6); Glucose 244 mg/dL (65-115); Lipase 102 U/L (13-60); Osmolality Calculated 290 mOsm/kg (285-295); Potassium 4.3 mmol/L (3.5-5.1); Sodium 135 mmol/L (136-145); Total Protein 7.1 g/dL (6.6-8.7)
[2024-04-21 03:57] LABS: Lactic Sepsis W/Reflex 3.7 mmol/L (0.5-2.2)
--- NOTE | 2024-04-21 03:58 | CTR_ITS ---
PROCEDURE INFORMATION: Exam: CT Abdomen And Pelvis With Contrast Exam date and time: 04/21/2024 4:09 AM Age: 43 years old Clinical indication: Abdominal pain; Generalized; Prior surgery; Surgery date: 6+ months; Surgery type: Esophageal SX TECHNIQUE: Imaging protocol: Computed tomography of the abdomen and pelvis with contrast. Radiation optimization: All CT scans at this facility use at least one of these dose optimization techniques: automated exposure control; mA and/or kV adjustment per patient size (includes targeted exams where dose is matched to clinical indication); or iterative reconstruction. Contrast material: OMNI 350; Contrast volume: 100 ml; Contrast route: INTRAVENOUS (IV); COMPARISON: CR XR lumbar spine 2-3V* [id number] 10/27/2023 5:56 PM RADIATION DOSE METRICS: Total DLP (mGy-cm): 1173.14 FINDINGS: Liver: Normal. No mass. Gallbladder and biliary ducts: Normal. No calcified stones. No ductal dilation. Pancreas: Normal. No ductal dilation. Spleen: 17 cm splenomegaly. Adrenal glands: Normal. No mass. Kidneys and ureters: Small bilateral renal cysts. In addition to several bilateral renal cysts there is an indeterminate 2 cm lesion in the mid left kidney. Ultrasound or MRI recommended to evaluate for a solid mass. Stomach and bowel: Unremarkable. No obstruction. No mucosal thickening. Appendix: No evidence of appendicitis. Intraperitoneal space: Unremarkable. No free air. No significant fluid collection. Vasculature: Unremarkable. No abdominal aortic aneurysm. Lymph nodes: Unremarkable. No enlarged lymph nodes. Urinary bladder: Unremarkable as visualized. Reproductive: Unremarkable as visualized. Bones/joints: Unremarkable. No acute fracture. Soft tissues: Unremarkable. CT/CT abdomen pelvis w con* [id number] IMPRESSION: 1. No acute subdiaphragmatic pathology. 2. Complex cyst versus mass in the left kidney. Ultrasound or MRI recommended. COMMENTS: Consistent with the [employer]'s Incidental Findings Committee white paper (J Am Cathy Radiol 2018): Any incidental renal lesion less than 1 cm or classified as too small to characterize, or any incidental cystic renal lesion characterized as simple-appearing, is likely benign. No follow-up imaging is recommended for these lesions per consensus recommendations based on imaging criteria.
--- NOTE | 2024-04-21 04:00 | ED_ITS ---
Documented by User: Hansa Duckworth MD 04/21/24 04:03 HPI - Nausea/Vomiting/Diarrhea 2 General: Chief complaint: Nausea/Vomiting/Diarrhea Stated complaint: N/V/D Time Seen by Provider: 04/21/24 03:18 History of Present Illness: 43-year-old man with a history of schizo phrenia, depression, asthma and hypothyroidism who presents to the emergency room with abdominal pain nausea and vomiting. He says it awoke him about 2 hours ago. He is complaining of diffuse mid abdominal pain. He says he is never had anything like this before. No known fevers. No altered mental status. Related Data Home Medications Medication Instructions Recorded Confirmed buspirone 10 mg tablet 10 mg PO DAILY 02/24/24 04/21/24 Previous Rx's Medication Instructions Recorded celecoxib 100 mg capsule (Celebrex) 100 mg PO BID PRN pain #180 caps 09/25/23 levothyroxine 50 mcg tablet 50 mcg PO DAILY #90 tabs 09/25/23 metformin 500 mg tablet,extended 500 mg PO DAILY diabetes #90 tabs 09/25/23 release 24 hr pantoprazole 40 mg tablet,delayed 40 mg PO DAILY acid reflux #90 tabs 09/25/23 release quetiapine 300 mg tablet (Seroquel) 300 mg PO BEDTIME #90 tabs 02/22/24 venlafaxine 75 mg capsule,extended 225 mg (3 x 75 mg) PO DAILY 30 02/22/24 release 24 hr days #270 caps levetiracetam 750 mg 1,500 mg (2 x 750 mg) PO DAILY 02/24/24 tablet,extended release 24 hr #180 tabs amoxicillin 875 mg-potassium 1 tab PO BID #14 tabs 04/21/24 clavulanate 125 mg tablet hydrocodone 5 mg-acetaminophen 325 1 tab PO Q6H PRN pain #15 tabs 04/21/24 mg tablet ondansetron HCl 4 mg tablet 4 mg PO Q6H PRN nausea and 04/21/24 vomiting #20 tabs Allergies Allergy/AdvReac Type Severity Reaction Status Date / Time chlorpromazine Allergy Severe Tongue Verified 04/21/24 03:20 [From Thorazine] swells and difficulty breathing olanzapine [From Zyprexa] Allergy Severe Tongue Verified 04/21/24 03:20 swells and difficulty breathing risperidone [From Risperdal] Allergy Severe Tongue Verified 04/21/24 03:20 swells and difficulty breathing Review of Systems 2 Narrative: Constitutional symptoms: Negative except as documented in HPI. Skin symptoms: Negative except as documented in HPI. Eye symptoms: Negative except as documented in HPI. ENMT symptoms: Negative except as documented in HPI. Respiratory symptoms: Negative except as documented in HPI. Cardiovascular symptoms: Negative except as documented in HPI. Gastrointestinal symptoms: Negative except as documented in HPI. Genitourinary symptoms: Negative except as documented in HPI. Musculoskeletal symptoms: Negative except as documented in HPI. Neurologic symptoms: Negative except as documented in HPI. Psychiatric symptoms: Negative except as documented in HPI. Endocrine symptoms: Negative except as documented in HPI. PFSH ED 2 PFSH: Medical History Psychiatric care Hearing loss Chronic otitis media Chronic right shoulder pain Hypothyroidism Asthma GERD (gastroesophageal reflux disease) Anxiety and depression Chronic schizophrenia Surgical History History of esophageal surgery got a quarter stuck in throat as a child S/P tympanostomy tube placement H/O knee surgery Social History Smoking and tobacco/nicotine status: never used tobacco/nicotine Second hand smoke exposure: No Alcohol intake: current Alcohol intake frequency: few times a month Alcohol type: beer and wine Substance/Drug Use: former Date of last use: 2014 Physical Exam 2 Narrative: EXAM NARRATIVE: General: Alert, no acute distress. Skin: Warm, dry. Head: Normocephalic, atraumatic. Neck: Supple, trachea midline. Eye: Extraocular movements are intact. Ears, nose, mouth and throat: mucosa moist. Cardiovascular: Regular, Normal peripheral perfusion. Respiratory: Lungs are clear to auscultation, respirations are non-labored, breath sounds are equal, Symmetrical chest wall expansion. Gastrointestinal: Soft, moderate diffuse mid abdominal pain, Non distended Musculoskeletal: Normal ROM, no deformity. Neurological: Alert and oriented, No focal neurological deficit observed. Psychiatric: Cooperative, appropriate mood & affect. Course 2 Vital Signs: Vital signs: Vital Signs Temperature 98.0 F 04/21/24 03:15 Pulse Rate 120 H 04/21/24 06:35 Respiratory Rate 18 04/21/24 06:35 Blood Pressure 117/96 04/21/24 04:02 Pulse Oximetry 96 04/21/24 06:35 Oxygen Delivery Me thod Room Air 04/21/24 06:35 MDM - Nausea/Vomiting/Diarrhea Medical Decision Making Medical decision making: Differential diagnosis including but not limited to and based on the above HPI, review of systems and physical exam: In this patient with epigastric pain differential would include cholelithiasis or cholecystitis. Hepatitis. Diverticulitis. Constipation. UTI. colitis. small bowel obstruction. crohn's flare. pancreatitis. gastritis. peptic ulcer. also concern for acute cardiac event. Orders placed to evaluate differential diagnosis based on the above differential, HPI and physical exam Lab Review: Laboratory results were reviewed and interpreted by myself the emergency room physician. Leukocytosis with white count 13,000. Mild elevation of hemoglobin at 18. BUN/creatinine are normal at 18 and 0.9. Glucose is elevated at 244. Does. Patient has a history of diabetes and is on metformin. I reviewed the patient's medical record. Reexamination: Lab Data 04/21/24 03:29 04/21/24 03:29 Radiology Impressions Abdomen/Pelvis CT 04/21/24 03:58 IMPRESSION: 1. No acute subdiaphragmatic pathology. 2. Complex cyst versus mass in the left kidney. Ultrasound or MRI recommended. COMMENTS: Consistent with the [employer]'s Incidental Findings Committee white paper (J Am Cathy Radiol 2018): Any incidental renal lesion less than 1 cm or classified as too small to characterize, or any incidental cystic renal lesion characterized as simple-appearing, is likely benign. No follow-up imaging is recommended for these lesions per consensus recommendations based on imaging criteria. Gallbladder Ultrasound 04/21/24 06:30 IMPRESSION: Extensive cholelithiasis. Laboratory Results WBC 13.23 10^3/uL (3.29-11.43) H 04/21/24 03:29 RBC 6.11 10^6/uL (3.85-5.65) H 04/21/24 03:29 Hgb 18.10 g/dL (11.27-16.99) H 04/21/24 03:29 Hct 51.9 % (37-53) 04/21/24 03:29 MCV 84.9 fl (82-101) 04/21/24 03: MCH 29.6 pg (27-33) 04/21/24 03: MCHC 34.9 g/dL (30-55) 04/21/24 03: RDW 12.3 % (12.1-15.1) 04/21/24 03: Plt Count 265 10^3/cmm (157-399) 04/21/24 03: MPV 10.7 fL (7.4-10.4) H 04/21/24 03:29 Neut % (Auto) 81.7 % 04/21/24 03: Lymph % (Auto) 9.3 % 04/21/24 03: Otoe % (Auto) 7.9 % 04/21/24 03: Eos % (Auto) 0.4 % 04/21/24 03: Baso % (Auto) 0.2 % 04/21/24 03: Neut # (Auto) 10.80 10^3/uL (1.8-7.7) H 04/21/24 03:29 Lymph # (Auto) 1.2 10^3/uL (0.8-4.8) 04/21/24 03:29 O[place]e # (Auto) 1.1 10^3/uL (0.2-0.9) H 04/21/24 03: Eos # (Auto) 0.1 10^3/uL (0.0-0.8) 04/21/24 03: Baso # (Auto) 0.0 10^3/uL (0.0-0.1) 04/21/24 03: Nucleated RBC % (auto) 0 % 04/21/24 03: Nucleated RBCs # 0.0 /100WBC 04/21/24 03:29 Specimen Type Arterial 04/21/24 04:29 Sample Site Brachial, right 04/21/24 04:29 ABG pH 7.46 (7.35-7.45) H 04/21/24 04:29 ABG pCO2 28.3 mmHg (35-45) L 04/21/24 04:29 ABG pO2 103.0 mmHg (80.0-100.0) H 04/21/24 04: ABG HCO3 20.1 mmol/L (22-26) L 04/21/24 04:29 ABG O2 Saturation 99.0 04/21/24 04:29 ABG Base Excess -2.0 mmol/L (-2.0-2.0) 04/21/24 04:29 Jose Test N/a 04/21/24 04:29 A-a O2 Gradient 1.4 mmHg (5-10) L 04/21/24 04:29 Hematocrit 54.5 % (42-52) H 04/21/24 04:29 Hgb O2 Saturation 97.3 % (95-100) 04/21/24 04:29 Carboxyhemoglobin 1.1 %THgb (0.4-20.1) 04/21/24 04:29 Methemoglobin 0.7 % (0.4-1.5) 04/21/24 04:29 Total Hemoglobin 17.8 g/dL (14-18) 04/21/24 04:29 Sodium 134.0 mmol/L (131-143) 04/21/24 04:29 Potassium 4.5 mmol/L (3.5-5.0) 04/21/24 04:29 Glucose 228.0 mg/dL (70-115) H 04/21/24 04:29 Ionized Calcium 1.1 mmol/L (1.1-1.4) 04/21/24 04:29 O2 Delivery Device Room air 04/21/24 04:29 Engine Specialist ID [email or web address] 04/21/24 04:29 Sodium 135 mmol/L (136-145) L 04/21/24 03:29 Potassium 4.3 mmol/L (3.5-5.1) 04/21/24 03:29 Chloride 100 mmol/L (98-107) 04/21/24 03:29 Carbon Dioxide 17 mmol/L (22-29) L 04/21/24 03:29 Anion Gap 22.3 (5-19) H 04/21/24 03:29 BUN 18 mg/dL (6-20) 04/21/24 03:29 Creatinine 0.9 mg/dL (0.7-1.2) 04/21/24 03:29 GFR Calculation 93.0 mL/min (90-130) 04/21/24 03:29 Glucose 244 mg/dL (65-115) H 04/21/24 03:29 Calculated Osmolality 290 mOsm/kg (285-295) 04/21/24 03:29 Lactic Acid 3.7 mmol/L (0.5-2.2) H 04/21/24 03:29 Lactic Acid (Sepsis) 1.9 mmol/L (0.5-2.2) 04/21/24 06:38 Calcium 9.4 mg/dL (8.5-10.5) 04/21/24 03:29 Total Bilirubin 1.0 mg/dL (0.15-1.2) 04/21/24 03:29 AST 75 U/L (0-40) H 04/21/24 03:29 ALT 84 U/L (0-41) H 04/21/24 03:29 Alkaline Phosphatase 186 U/L (40-130) H 04/21/24 03:29 Total Protein 7.1 g/dL (6.6-8.7) 04/21/24 03:29 Albumin 4.4 g/dL (3.5-5.2) 04/21/24 03:29 Globulin 2.7 g/dL (1.3-4.6) 04/21/24 03:29 Lipase 102 U/L (13-60) H 04/21/24 03:29 Urine Color Dark yellow (Yellow) A 04/21/24 05:05 Urine Appearance Clear (CLEAR) 04/21/24 05:05 Urine pH 5.0 (5-7) 04/21/24 05:05 Ur Specific Grayling 1.087 (1.005-1.030) H 04/21/24 05:05 Urine Protein 1+ (Negative) A 04/21/24 05:05 Urine Glucose (UA) Negative (Normal) 04/21/24 05:05 Urine Ketones 1+ (Negative) H 04/21/24 05:05 Urine Blood Negative (Negative) 04/21/24 05:05 Urine Nitrate Negative (Negative) 04/21/24 05:05 Urine Bilirubin Negative (Negative) 04/21/24 05:05 Urine Urobilinogen 1.0 mg/dL (Negative) 04/21/24 05:05 Ur Leukocyte Esterase Negative (Negative) 04/21/24 05:05 Urine RBC 0-2 /hpf (0-2) 04/21/24 05:05 Urine WBC 0-5 /hpf (0-5) 04/21/24 05:05 Ur Squamous Epith Cells 0-5 /hpf (0-5) 04/21/24 05:05 Amorphous Sediment Not Reportable 04/21/24 05:05 Urine Bacteria None seen /hpf (NONE) 04/21/24 05:05 Hyaline Casts 1.65 /lpf 04/21/24 05:05 Urine Opiates Screen Positive ng/mL (Negative) H 04/21/24 05:05 Ur Barbiturates Screen Negative ng/mL (Negative) 04/21/24 05:05 Ur Phencyclidine Scrn Negative ng/mL (Negative) 04/21/24 05:05 Ur Amphetamines Screen Negative ng/mL (Negative) 04/21/24 05:05 U Benzodiazepines Scrn Negative ng/mL (Negative) 04/21/24 05:05 Urine Cocaine Screen Negative ng/mL (Negative) 04/21/24 05:05 U Marijuana (THC) Screen Negative ng/mL (Negative) 04/21/24 05:05 Serum Ketones Negative (Negative) 04/21/24 03:29 Discharge Plan Discharge Patient Disposition: Home Clinical Impression: Cholelithiases, Biliary colic Condition: Stable Prescriptions: New hydrocodone-acetaminophen 5-325 mg tablet 1 tab PO Q6H PRN (Reason: pain) Qty: 15 0RF ondansetron HCl 4 mg tablet 4 mg PO Q6H PRN (Reason: nausea and vomiting) Qty: 20 0RF amoxicillin-pot clavulanate 875-125 mg tablet 1 tab PO BID Qty: 14 0RF No Action buspirone 10 mg tablet 10 mg PO DAILY levetiracetam 750 mg tablet extended release 24 hr 1,500 mg PO DAILY Qty: 180 3RF Celebrex 100 mg capsule 100 mg PO BID PRN (Reason: pain) Qty: 180 1RF Hold Instructions: Resume on 06/02/22. Rx Instructions: Take with food levothyroxine 50 mcg tablet 50 mcg PO DAILY Qty: 90 1RF metformin 500 mg tablet extended release 24 hr 500 mg PO DAILY Qty: 90 1RF pantoprazole 40 mg tablet,delayed release (DR/EC) 40 mg PO DAILY Qty: 90 1RF venlafaxine 75 mg capsule,extended release 24hr 225 mg PO DAILY 30 Days Qty: 270 1RF Seroquel 300 mg tablet 300 mg PO BEDTIME Qty: 90 0RF Discharge Orders: Discharge ED (Routine); Ordered 04/21/24 Ordered By: Nikos Rosales Referrals: Rebeca Joy PA [Primary Care Provider] - Discharge Diet: As Directed Discharge Activity: Increase activity as tolerated Patient Instructions: Biliary Colic (ED), Gallstones (ED), Abdominal Pain (ED), Opioid Safety, Pain Management Activity Restrictions/Additional Instructions: Thank you for choosing [facility] for your healthcare needs today. It is very important that you follow up as instructed or that you return to the Emergency Department should you have concerns or if your condition changes or worsens in any way. You are seen in the emergency room with complaint of abdominal pain CT did not show any significant abnormalities but your gallbladder ultrasound did not show significant amount of gallstones there is no blockage of the gallbladder no stones in the gallbladder duct. Your liver enzymes are slightly elevated but your bilirubin is normal. Discussed with the surgeon he recommends Augmentin pain and nausea medications avoid red meat fried foods fatty foods tomato-based products and citrus fruits or juices. Also avoid any other foods that you have noticed aggravate your condition. Sign Out Sign Out Data: Patient Sign Out occurred on 04/21/24 at 06:28. Patient's care was discussed, and care was transferred from Hansa Duckworth MD to Nikos Rosales DO. Coding Level of Care Code ED [employer] for Chg Fwd Documented by User: Nikos Rosales DO 04/21/24 08:18 HPI - Nausea/Vomiting/Diarrhea 2 General: Chief complaint: Nausea/Vomiting/Diarrhea Stated complaint: N/V/D Time Seen by Provider: 04/21/24 03:18 Related Data Home Medications Medication Instructions Recorded Confirmed buspirone 10 mg tablet 10 mg PO DAILY 02/24/24 04/21/24 Previous Rx's Medication Instructions Recorded celecoxib 100 mg capsule (Celebrex) 100 mg PO BID PRN pain #180 caps 09/25/23 levothyroxine 50 mcg tablet 50 mcg PO DAILY #90 tabs 09/25/23 metformin 500 mg tablet,extended 500 mg PO DAILY diabetes #90 tabs 09/25/23 release 24 hr pantoprazole 40 mg tablet,delayed 40 mg PO DAILY acid reflux #90 tabs 09/25/23 release quetiapine 300 mg tablet (Seroquel) 300 mg PO BEDTIME #90 tabs 02/22/24 venlafaxine 75 mg capsule,extended 225 mg (3 x 75 mg) PO DAILY 30 02/22/24 release 24 hr days #270 caps levetiracetam 750 mg 1,500 mg (2 x 750 mg) PO DAILY 02/24/24 tablet,extended release 24 hr #180 tabs amoxicillin 875 mg-potassium 1 tab PO BID #14 tabs 04/21/24 clavulanate 125 mg tablet hydrocodone 5 mg-acetaminophen 325 1 tab PO Q6H PRN pain #15 tabs 04/21/24 mg tablet ondansetron HCl 4 mg tablet 4 mg PO Q6H PRN nausea and 04/21/24 vomiting #20 tabs Allergies Allergy/AdvReac Type Severity Reaction Status Date / Time chlorpromazine Allergy Severe Tongue Verified 04/21/24 03:20 [From Thorazine] swells and difficulty breathing olanzapine [From Zyprexa] Allergy Severe Tongue Verified 04/21/24 03:20 swells and difficulty breathing risperidone [From Risperdal] Allergy Severe Tongue Verified 04/21/24 03:20 swells and difficulty breathing PFSH ED 2 PFSH: Medical History Psychiatric care Hearing loss Chronic otitis media Chronic right shoulder pain Hypothyroidism Asthma GERD (gastroesophageal reflux disease) Anxiety and depression Chronic schizophrenia Surgical History History of esophageal surgery got a quarter stuck in throat as a child S/P tympanostomy tube placement H/O knee surgery Social History Smoking and tobacco/nicotine status: never used tobacco/nicotine Second hand smoke exposure: No Alcohol intake: current Alcohol intake frequency: few times a month Alcohol type: beer and wine Substance/Drug Use: former Date of last use: 2014 Course 2 Vital Signs: Vital signs: Vital Signs Temperature 98.0 F 04/21/24 03:15 Pulse Rate 120 H 04/21/24 06:35 Respiratory Rate 18 04/21/24 06:35 Blood Pressure 117/96 04/21/24 04:02 Pulse Oximetry 96 04/21/24 06:35 Oxygen Delivery Me thod Room Air 04/21/24 06:35 MDM - Nausea/Vomiting/Diarrhea Medical Decision Making Medical decision making: Differential diagnosis including but not limited to and based on the above HPI, review of systems and physical exam: In this patient with epigastric pain differential would include cholelithiasis or cholecystitis. Hepatitis. Diverticulitis. Constipation. UTI. colitis. small bowel obstruction. crohn's flare. pancreatitis. gastritis. peptic ulcer. also concern for acute cardiac event. Orders placed to evaluate differential diagnosis based on the above differential, HPI and physical exam Lab Review: Laboratory results were reviewed and interpreted by myself the emergency room physician. Leukocytosis with white count 13,000. Mild elevation of hemoglobin at 18. BUN/creatinine are normal at 18 and 0.9. Glucose is elevated at 244. Does. Patient has a history of diabetes and is on metformin. I reviewed the patient's medical record. Reexamination: Care assumed at change of shift chart reviewed. Patient has a history of cholelithiasis on previous ultrasound [address] today did not recognize any gallbladder pathology transaminases and alk phos are elevated T. bili is normal his appendix and colon were otherwise normal. No sign of acute pancreatitis on labs or imaging. Noticed patient was tachycardic when he first arrived we will get an EKG. Will also get a gallbladder ultrasound to further evaluate given leukocytosis and liver function and alk phos abnormalities Gallbladder ultrasound shows cholelithiasis. Patient's symptoms have resolved he had episodes before. Discussed with Dr. Yeboah on-call. He recommends Augmentin night restrictions pain and nausea medications will discharge him home set him up for outpatient follow-up with Dr. Yeboah. Medical Records I reviewed the patient's medical records. Lab Data I reviewed the patient's lab results. 04/21/24 03:29 04/21/24 03:29 Radiology Impressions Abdomen/Pelvis CT 04/21/24 03:58 IMPRESSION: 1. No acute subdiaphragmatic pathology. 2. Complex cyst versus mass in the left kidney. Ultrasound or MRI recommended. COMMENTS: Consistent with the [employer]'s Incidental Findings Committee white paper (J Am Cathy Radiol 2018): Any incidental renal lesion less than 1 cm or classified as too small to characterize, or any incidental cystic renal lesion characterized as simple-appearing, is likely benign. No follow-up imaging is recommended for these lesions per consensus recommendations based on imaging criteria. Gallbladder Ultrasound 04/21/24 06:30 IMPRESSION: Extensive cholelithiasis. Laboratory Results WBC 13.23 10^3/uL (3.29-11.43) H 04/21/24 03:29 RBC 6.11 10^6/uL (3.85-5.65) H 04/21/24 03:29 Hgb 18.10 g/dL (11.27-16.99) H 04/21/24 03:29 Hct 51.9 % (37-53) 04/21/24 03:29 MCV 84.9 fl (82-101) 04/21/24 03:29 MCH 29.6 pg (27-33) 04/21/24 03:29 MCHC 34.9 g/dL (30-55) 04/21/24 03:29 RDW 12.3 % (12.1-15.1) 04/21/24 03:29 Plt Count 265 10^3/cmm (157-399) 04/21/24 03:29 MPV 10.7 fL (7.4-10.4) H 04/21/24 03:29 Neut % (Auto) 81.7 % 04/21/24 03:29 Lymph % (Auto) 9.3 % 04/21/24 03:29 Otoe % (Auto) 7.9 % 04/21/24 03:29 Eos % (Auto) 0.4 % 04/21/24 03:29 Baso % (Auto) 0.2 % 04/21/24 03:29 Neut # (Auto) 10.80 10^3/uL (1.8-7.7) H 04/21/24 03:29 Lymph # (Auto) 1.2 10^3/uL (0.8-4.8) 04/21/24 03:29 O[place]e # (Auto) 1.1 10^3/uL (0.2-0.9) H 04/21/24 03:29 Eos # (Auto) 0.1 10^3/uL (0.0-0.8) 04/21/24 03: Baso # (Auto) 0.0 10^3/uL (0.0-0.1) 04/21/24 03:29 Nucleated RBC % (auto) 0 % 04/21/24 03: Nucleated RBCs # 0.0 /100WBC 04/21/24 03:29 Specimen Type Arterial 04/21/24 04:29 Sample Site Brachial, right 04/21/24 04:29 ABG pH 7.46 (7.35-7.45) H 04/21/24 04:29 ABG pCO2 28.3 mmHg (35-45) L 04/21/24 04: ABG pO2 103.0 mmHg (80.0-100.0) H 04/21/24 04:29 ABG HCO3 20.1 mmol/L (22-26) L 04/21/24 04:29 ABG O2 Saturation 99.0 04/21/24 04:29 ABG Base Excess -2.0 mmol/L (-2.0-2.0) 04/21/24 04:29 Jose Test N/a 04/21/24 04:29 A-a O2 Gradient 1.4 mmHg (5-10) L 04/21/24 04:29 Hematocrit 54.5 % (42-52) H 04/21/24 04:29 Hgb O2 Saturation 97.3 % (95-100) 04/21/24 04:29 Carboxyhemoglobin 1.1 %THgb (0.4-20.1) 04/21/24 04:29 Methemoglobin 0.7 % (0.4-1.5) 04/21/24 04:29 Total Hemoglobin 17.8 g/dL (14-18) 04/21/24 04:29 Sodium 134.0 mmol/L (131-143) 04/21/24 04:29 Potassium 4.5 mmol/L (3.5-5.0) 04/21/24 04:29 Glucose 228.0 mg/dL (70-115) H 04/21/24 04:29 Ionized Calcium 1.1 mmol/L (1.1-1.4) 04/21/24 04:29 O2 Delivery Device Room air 04/21/24 04:29 Engine Specialist ID [email or web address] 04/21/24 04:29 Sodium 135 mmol/L (136-145) L 04/21/24 03:29 Potassium 4.3 mmol/L (3.5-5.1) 04/21/24 03:29 Chloride 100 mmol/L (98-107) 04/21/24 03:29 Carbon Dioxide 17 mmol/L (22-29) L 04/21/24 03:29 Anion Gap 22.3 (5-19) H 04/21/24 03:29 BUN 18 mg/dL (6-20) 04/21/24 03:29 Creatinine 0.9 mg/dL (0.7-1.2) 04/21/24 03:29 GFR Calculation 93.0 mL/min (90-130) 04/21/24 03:29 Glucose 244 mg/dL (65-115) H 04/21/24 03:29 Calculated Osmolality 290 mOsm/kg (285-295) 04/21/24 03:29 Lactic Acid 3.7 mmol/L (0.5-2.2) H 04/21/24 03:29 Lactic Acid (Sepsis) 1.9 mmol/L (0.5-2.2) 04/21/24 06:38 Calcium 9.4 mg/dL (8.5-10.5) 04/21/24 03:29 Total Bilirubin 1.0 mg/dL (0.15-1.2) 04/21/24 03:29 AST 75 U/L (0-40) H 04/21/24 03:29 ALT 84 U/L (0-41) H 04/21/24 03:29 Alkaline Phosphatase 186 U/L (40-130) H 04/21/24 03:29 Total Protein 7.1 g/dL (6.6-8.7) 04/21/24 03:29 Albumin 4.4 g/dL (3.5-5.2) 04/21/24 03:29 Globulin 2.7 g/dL (1.3-4.6) 04/21/24 03:29 Lipase 102 U/L (13-60) H 04/21/24 03:29 Urine Color Dark yellow (Yellow) A 04/21/24 05:05 Urine Appearance Clear (CLEAR) 04/21/24 05:05 Urine pH 5.0 (5-7) 04/21/24 05:05 Ur Specific Grayling 1.087 (1.005-1.030) H 04/21/24 05:05 Urine Protein 1+ (Negative) A 04/21/24 05:05 Urine Glucose (UA) Negative (Normal) 04/21/24 05:05 Urine Ketones 1+ (Negative) H 04/21/24 05:05 Urine Blood Negative (Negative) 04/21/24 05:05 Urine Nitrate Negative (Negative) 04/21/24 05:05 Urine Bilirubin Negative (Negative) 04/21/24 05:05 Urine Urobilinogen 1.0 mg/dL (Negative) 04/21/24 05:05 Ur Leukocyte Esterase Negative (Negative) 04/21/24 05:05 Urine RBC 0-2 /hpf (0-2) 04/21/24 05:05 Urine WBC 0-5 /hpf (0-5) 04/21/24 05:05 Ur Squamous Epith Cells 0-5 /hpf (0-5) 04/21/24 05:05 Amorphous Sediment Not Reportable 04/21/24 05:05 Urine Bacteria None seen /hpf (NONE) 04/21/24 05:05 Hyaline Casts 1.65 /lpf 04/21/24 05:05 Urine Opiates Screen Positive ng/mL (Negative) H 04/21/24 05:05 Ur Barbiturates Screen Negative ng/mL (Negative) 04/21/24 05:05 Ur Phencyclidine Scrn Negative ng/mL (Negative) 04/21/24 05:05 Ur Amphetamines Screen Negative ng/mL (Negative) 04/21/24 05:05 U Benzodiazepines Scrn Negative ng/mL (Negative) 04/21/24 05:05 Urine Cocaine Screen Negative ng/mL (Negative) 04/21/24 05:05 U Marijuana (THC) Screen Negative ng/mL (Negative) 04/21/24 05:05 Serum Ketones Negative (Negative) 04/21/24 03:29 All radiology interpretation(s) finalized by discharge Discharge Plan Discharge Patient Disposition: Home Clinical Impression: Cholelithiases, Biliary colic Condition: Stable Prescriptions: New hydrocodone-acetaminophen 5-325 mg tablet 1 tab PO Q6H PRN (Reason: pain) Qty: 15 0RF ondansetron HCl 4 mg tablet 4 mg PO Q6H PRN (Reason: nausea and vomiting) Qty: 20 0RF amoxicillin-pot clavulanate 875-125 mg tablet 1 tab PO BID Qty: 14 0RF No Action buspirone 10 mg tablet 10 mg PO DAILY levetiracetam 750 mg tablet extended release 24 hr 1,500 mg PO DAILY Qty: 180 3RF Celebrex 100 mg capsule 100 mg PO BID PRN (Reason: pain) Qty: 180 1RF Hold Instructions: Resume on 06/02/22. Rx Instructions: Take with food levothyroxine 50 mcg tablet 50 mcg PO DAILY Qty: 90 1RF metformin 500 mg tablet extended release 24 hr 500 mg PO DAILY Qty: 90 1RF pantoprazole 40 mg tablet,delayed release (DR/EC) 40 mg PO DAILY Qty: 90 1RF venlafaxine 75 mg capsule,extended release 24hr 225 mg PO DAILY 30 Days Qty: 270 1RF Seroquel 300 mg tablet 300 mg PO BEDTIME Qty: 90 0RF Discharge Orders: Discharge ED (Routine); Ordered 04/21/24 Ordered By: Nikos Rosales Referrals: Rebeca Joy PA [Primary Care Provider] - Discharge Diet: As Directed Discharge Activity: Increase activity as tolerated Patient Instructions: Biliary Colic (ED), Gallstones (ED), Abdominal Pain (ED), Opioid Safety, Pain Management Activity Restrictions/Additional Instructions: Thank you for choosing [facility] for your healthcare needs today. It is very important that you follow up as instructed or that you return to the Emergency Department should you have concerns or if your condition changes or worsens in any way. You are seen in the emergency room with complaint of abdominal pain CT did not show any significant abnormalities but your gallbladder ultrasound did not show significant amount of gallstones there is no blockage of the gallbladder no stones in the gallbladder duct. Your liver enzymes are slightly elevated but your bilirubin is normal. Discussed with the surgeon he recommends Augmentin pain and nausea medications avoid red meat fried foods fatty foods tomato-based products and citrus fruits or juices. Also avoid any other foods that you have noticed aggravate your condition. Sign Out Sign Out Data: Patient Sign Out occurred on 04/21/24 at 06:28. Patient's care was discussed, and care was transferred from Hansa Duckworth MD to Nikos Rosales DO. Coding Level of Care Code ED [employer] Service Officer for Bob Arevalo
[2024-04-21 04:02] VITALS: BP 117/96; PULSE 130; RESP 16; O2SAT 94
[2024-04-21] MEDS: iohexol 350 mg/mL 500 mL Btl (per mL) IV (04:12)
[2024-04-21 04:13] LABS: Ketone (Acetest) Serum Negative (Negative)
[2024-04-21 04:40] LABS: ABG PCO2 28.3 mmHg (35-45); ABG PH Result 7.46 (7.35-7.45); Alveolar-Arterial Oxygen Gradi 1.4 mmHg (5-10); Arterial Blood Gas Hematocrit 54.5 % (42-52); Blood Gas Sample Site Brachial, right; Blood Gas Sample Type Arterial; Carboxyhemoglobin 1.1 %THgb (0.4-20.1); HCO3 ABG 20.1 mmol/L (22-26); HGB O2 Sat 97.3 % (95-100); Ionized Calcium Level - ABG 1.1 mmol/L (1.1-1.4); Methemoglobin 0.7 % (0.4-1.5); Oxygen Device ROOM AIR; Potassium Level - ABG 4.5 mmol/L (3.5-5.0); Total Hemoglobin 17.8 g/dL (14-18)
[2024-04-21 05:13] LABS: Bilirubin Urine Negative (Negative); Blood Urine Negative (Negative); Glucose Urine UA Negative (Normal); Ketones Urine 1+ (Negative); Leukocyte Esterase Urine Negative (Negative); Nitrate Urine Negative (Negative); Protein Urine 1+ (Negative); Urine Appearance Clear (CLEAR); Urine Color Dark Yellow (Yellow)
[2024-04-21 05:18] LABS: Bacteria Urine None Seen /hpf; Hyaline Casts Urine 1.65 /lpf; RBC Urine 0-2 /hpf (0-2); Squamous Epithelial Cell Urine 0-5 /hpf (0-5); WBC Urine 0-5 /hpf (0-5)
[2024-04-21 05:20] LABS: Amphetamines Screen Urine Negative (Negative); Barbiturates Screen Urine Negative (Negative); Benzodiazepines Screen Urine Negative (Negative); Cocaine Screen Urine Negative (Negative); Opiate Screen Urine Positive (Negative); PCP Screen Urine Negative (Negative); THC Screen Urine Negative (Negative)
[2024-04-21 05:21] LABS: Reflex Lactate Order REFLEX LACTIC ORDERD
[2024-04-21 05:22] LABS: Specific Gravity, Urine 1.087 (1.005-1.030)
--- NOTE | 2024-04-21 06:30 | ECG_ITS ---
[facility] Test Date: 2024-04-21 Pat Name: Bigg Hernandez Department: Room: Gender: Male [employer] Fi[employer] Builder: : 1980 Requested By: Nikos Olmos Order Number: [id number] Gisella MD: Edmar Mckee M.D. Measurements Intervals Charlo Rate: 106 P: 48 TN: 165 QRS: 78 QRSD: 79 T: 69 QT: 306 QTc: 408 Interpretive Statements SINUS TACHYCARDIA WITH OCCASIONAL VENTRICULAR PREMATURE COMPLEXES SEPTAL MYOCARDIAL INFARCTION , PROBABLY OLD [40+ ms Q WAVE IN V1/V2] Compared to ECG 05/08/2022 19:54:24 Ventricular premature complex(es) now present Myocardial infarct finding now present Sinus rhythm no longer present Electronically Signed On 04-21-2024 18:19:38 SENIOR INTERACTIVE DEVELOPER by Edmar Mckee M.D. [email or web address]
--- NOTE | 2024-04-21 06:30 | USR_ITS ---
PROCEDURE INFORMATION: Exam: US Abdomen, Limited; Right Upper Quadrant Exam date and time: 04/21/2024 6:40 AM Age: 43 years old Clinical indication: Abdominal pain; Additional info: Eleavated lfts, HX cholelithiasis, abd pain TECHNIQUE: Imaging protocol: Real time ultrasound of the abdomen with image documentation. Limited exam focused on the right upper quadrant. COMPARISON: CT abdomen pelvis w con* [id number] 04/21/2024 4:09 AM FINDINGS: Liver: Normal. No masses. Gallbladder: Numerous gallstones are present. Gallbladder wall is not thickened. There is no gallbladder wall thickening. Biliary ducts: Normal. No stones. No dilation. Pancreas: Visualized pancreas is unremarkable. Right kidney: Normal. No mass. No hydronephrosis. US/US gall bladder [id number] IMPRESSION: Extensive cholelithiasis.
[2024-04-21 06:35] VITALS: PULSE 120; RESP 18; O2SAT 96
[2024-04-21 07:03] LABS: Lactic Acid level (Lactate) 1.9 mmol/L (0.5-2.2)
--- NOTE | 2024-04-22 00:42 | DCPLANNER ---
Message sent to General surgery for a follow up with [facility]
== END 2024-04-21 08:24 | disposition home or self-care (01) ==
PROVIDERS: Emergency Medicine; Emergency Provider Family Medicine; PCP Physician Assistant
DX: K80.20 Calculus of gallbladder without cholecystitis without obstruction (principal); K80.50 Calculus of bile duct without cholangitis or cholecystitis without obstruction; Z79.84 Long term (current) use of oral hypoglycemic drugs
CPT/HCPCS: 36415; 36600; 74177; 76705; 80051; 80053; 80306; 81001; 82009; 82330; 82805; 83605; 83690; 85025; 93005; 96374; 96375; 99285; J1171; J1885; J2405

== ENCOUNTER → 2024-04-26 10:41 | Outpatient (BNVA) | payer MEDICARE, MEDICAID, SELFPAY | PROVIDERS: PCP Physician Assistant; Visit Provider Student in an Organized Health Care Education/Training Program | DX: K80.20 Calculus of gallbladder without cholecystitis without obstruction (principal) | CPT/HCPCS: 99204 ==

== ENCOUNTER 2024-05-04 06:13 | Day surgery (SDC) | payer MEDICARE, MEDICAID, SELFPAY ==
[2024-05-04] VITALS (13 sets, daily range): BP systolic 135–153; BP diastolic 51–102; PULSE 85–109; RESP 16–20; TEMP 36.2–36.4; O2SAT 94–99; BMI 35.6
[2024-05-04] MEDS: sodium chloride 0.9% 1,000 ML 30 ML IV (06:57)
[2024-05-04 06:58] LABS: Glucose Point of Care 202 mg/dL (70-110)
--- NOTE | 2024-05-04 07:04 | W.PM.OPSUD ---
Surgery/Procedure H&P Update DATE OF PROCEDURE: May 04, 2024 DATE H&P PERFORMED: 04/26/24 H&P UPDATE INFORMATION: I have reviewed H&P completed within last 30 days, I have examined patient prior to procedure, No changes to prior documentation and Changes to prior documentation as noted here PLANNED PROCEDURE: Operation Date: 05/04/24 08:00 Proposed Procedures p Laparoscopic Cholecystectomy 60581, K80.20(Not Applicable) - Kevin Yeboah MD
--- NOTE | 2024-05-04 08:06 | ANES.PREANE2 ---
Pre-Anesthetic Assessment Height/Weight: Height 6 ft 3 in Weight 285 lb Temp Pulse Resp BP Pulse Ox O2 Del Method 97.5 F L 109 H 18 136/91 95 Room Air 05/04/24 06:41 05/04/24 06:41 05/04/24 06:41 05/04/24 06:41 05/04/24 06:41 05/04/24 06:43 Preop Diagnosis: Symptomatic cholelithiasis Operation Date: 05/04/24 08:00 Proposed Procedures p Laparoscopic Cholecystectomy 97886, K80.20(Not Applicable) - Kevin Yeboah MD Was Beta Coco taken within 24 hours: N/A Was Clonidine taken within 24 hours: N/A Last intake: Intake Last Liquid Date 05/03/24 Last Liquid Time 19:00 Last Solid Date 05/03/24 Last Solid Time 19:00 Social No alcohol and No tobacco Exam alert, oriented x 3, clear to auscultation bilaterally and regular rate & rhythm Airway Submandibular: within normal limits Cervical ROM: within normal limits Mallampati: Class I Comments: Comments: Edentulous Anesthetic Plan ASA status: 3 Anesthesia: General Other: No prior issues with anesthesia NPO since yesterday History of TYLER, no treatment GERD on Protonix Type 2 diabetes, on metformin Hypothyroidism on Synthroid METs greater than 4 Childhood seizures, no seizure in 15 years Plan for GETA Medications/Allergies Home Medications Medication Instructions Recorded Confirmed Last Taken Type celecoxib 100 mg capsule (Celebrex) 100 mg PO BID PRN pain #180 caps 09/25/23 05/03/24 05/03/24 Rx metformin 500 mg tablet,extended 500 mg PO DAILY diabetes #90 tabs 09/25/23 05/03/24 05/03/24 Rx release 24 hr pantoprazole 40 mg tablet,delayed 40 mg PO DAILY acid reflux #90 tabs 09/25/23 05/03/24 05/04/24 Rx release venlafaxine 75 mg capsule,extended 225 mg (3 x 75 mg) PO DAILY 30 02/22/24 05/03/24 05/03/24 Rx release 24 hr days #270 caps buspirone 10 mg tablet 10 mg PO DAILY 02/24/24 05/03/24 05/03/24 History levetiracetam 750 mg 1,500 mg (2 x 750 mg) PO DAILY 02/24/24 05/03/24 05/03/24 Rx tablet,extended release 24 hr #180 tabs hydrocodone 5 mg-acetaminophen 325 1 tab PO Q6H PRN pain #15 tabs 04/21/24 05/03/24 05/03/24 Rx mg tablet ondansetron HCl 4 mg tablet 4 mg PO Q6H PRN nausea and 04/21/24 05/04/24 Unknown Rx vomiting #20 tabs levothyroxine 50 mcg tablet 50 mcg PO DAILY #90 tabs 05/02/24 05/03/24 05/03/24 Rx quetiapine 300 mg tablet (Seroquel) 300 mg PO BEDTIME #90 tabs 05/02/24 05/03/24 05/03/24 Rx Allergies Allergy/AdvReac Type Severity Reaction Status Date / Time chlorpromazine Allergy Severe Tongue Verified 05/04/24 06:38 [From Thorazine] swells and difficulty breathing olanzapine [From Zyprexa] Allergy Severe Tongue Verified 05/04/24 06:38 swells and difficulty breathing risperidone [From Risperdal] Allergy Severe Tongue Verified 05/04/24 06:38 swells and difficulty breathing Current Medications Generic Name Dose Route Start Last Admin Trade Name Freq PRN Reason Stop Dose Admin Sodium Chloride 1,000 mls @ 30 mls/hr 05/04/24 06:30 05/04/24 06:57 Sodium Chloride 0.9% IV 05/05/24 06:29 30 mls/hr .Q24H PATI Administration PFSH Anesthesia Medical History Secondarily generalized seizures Psychiatric care Hearing loss Chronic otitis media Chronic right shoulder pain Hypothyroidism Asthma GERD (gastroesophageal reflux disease) Anxiety and depression Chronic schizophrenia Surgical History History of esophageal surgery got a quarter stuck in throat as a child S/P tympanostomy tube placement H/O knee surgery Social History Smoking and tobacco/nicotine status: never used tobacco/nicotine Second hand smoke exposure: No Alcohol intake: current Alcohol intake frequency: few times a month Alcohol type: beer and wine Substance/Drug Use: former Date of last use: 2014 Anesthesia Cardiac Studies: No Data to Display
[2024-05-04] MEDS: ceFAZolin 2,000 mg SDV 2000 MG IVP (08:35)
[2024-05-04] MEDS: lidocaine-epi 1% PF 1:200,000 30 mL SDV INJECTION (09:32)
--- NOTE | 2024-05-04 10:06 | PM.OP ---
Operative Report Date of procedure: May 04, 2024 Pre-op diagnosis: Symptomatic cholelithiasis Post-op diagnosis: other Post-op diagnosis: Chronic cholecystitis Post-op findings: Cholelithiasis Procedure done: Laparoscopic cholecystectomy Implants: NA Specimens removed/disposition: Gallbladder Pathology: Gallbladder Surgeon: Kevin Yeboah MD Social Security Benefits Interviewer: JONELLE Anesthesia: General Estimated blood loss (mL): 10 Complications: NA Findings: Gallbladder filled with stones. Condition: stable Disposition: same day Brief History: 43-year-old male who presented with symptomatic cholelithiasis. I have explained the risks and benefits and patient agreed to proceed with laparoscopic cholecystectomy possible open Procedure: I discussed the risks and benefits of laparoscopic cholecystectomy, and obtained consent prior to proceeding to the operating room. SCDs were utilized. Prophylactic antibiotics were administered. General anesthesia was induced. The patient was placed supine, and she was prepped and draped in the usual sterile fashion. Insufflation to 15mmHg was achieved using a Veress needle at Byrne's point. A 11mm optiview trocar was placed at the umbilicus under direct visualization. The left upper quadrant was inspected, and no injuries were noted. Two 5mm ports were placed in the right upper quadrant, and a 12mm working port was placed in the epigastrium. The gallbladder was then retracted cephalad through the lateral RUQ port, and the infundibulum grabbed through the medial RUQ port and retracted laterally. The gallbladder was inflammed consistent with chronic cholecystitis. I proceeded to score the peritoneum over the medial aspect of the gallbladder using a laparoscopic hook with electrocautery. Then the infundibulum was retracted medially in order to score the peritoneum over the lateral aspect of the galbladder. Using a combination of energy and blunt dissection with the [place] and a Kittner dissector, the cystic artery and cystic duct were dissected. I then proceeded to dissect the cystic plate in order to to achieve the critical view of safety. The cystic artery and the cystic duct were clipped three times (leaving two clips on the proximal end of both structures). I then proceeded to dissect the gallbladder off the liver using hook electrocautery. The specimen was placed in an endocatch bag and retrieved from the abdomen through the port on the epigastrium. I then irrigated the gallbladder fossa with 3L of NS to confirm adequate hemostasis and the absence of any bile leaks. The gallbladder fossa was then cauterized again. Prior to ending the laparoscopic portion, I examined the rest of the abdomen and did not find any abnormalities or injuries. The abdomen was then desufflated, and the 12mm port in the epigastrium and 11mm port at the umbilicus were closed using 0 vicryl on a UR needle after irrigating copiously. Skin was closed using 4-0 monocryl and surgical glue. The patient woke up from anesthesia and transferred to PACU without any complications.
[2024-05-04] MEDS: fentaNYL 50 mcg/mL INJ 2mL IVP (10:42)
[2024-05-04] MEDS: ondansetron 2 mg/ML SDV 2 mL 4 MG IVP (10:45)
--- NOTE | 2024-05-05 12:25 | ANE.PACU2 ---
Inpatient post-anesthesia follow up: Airway intact: Yes Vital signs: Temperature 97.3 F Pulse Rate 109 Respiratory Rate 18 Blood Pressure 135/79 Pulse Oximetry 94 Oxygen Delivery Me thod Room Air Oxygen Flow Rate 2 Fraction of Inspir ed Oxygen Hydration adequate: Yes Nausea and vomiting: No Pain level: 1 Mental status: Baseline
== END 2024-05-04 12:25 | disposition home or self-care (01) ==
PROVIDERS: PCP Physician Assistant; Visit Provider Student in an Organized Health Care Education/Training Program
PROC: 0FT44ZZ Resection of Gallbladder, Percutaneous Endoscopic Approach (ICD-10-PCS; CPT 47562; principal; 2024-05-04 07:50)
DX: K80.10 Calculus of gallbladder with chronic cholecystitis without obstruction (principal); G47.33 Obstructive sleep apnea (adult) (pediatric); K21.9 Gastro-esophageal reflux disease without esophagitis; E11.9 Type 2 diabetes mellitus without complications; Z79.84 Long term (current) use of oral hypoglycemic drugs; E03.9 Hypothyroidism, unspecified
CPT/HCPCS: 47562; 36416; 82962; 88304; J0131; J0690; J1171; J2405; J2710; J3010; J3490; J7030

== ENCOUNTER 2024-05-08 12:21 | Emergency (ER) | payer MEDICARE, MEDICAID, SELFPAY ==
[2024-05-08] VITALS (10 sets, daily range): BP systolic 121–140; BP diastolic 79–100; PULSE 89–103; RESP 16; TEMP 37.5; O2SAT 95–98; BMI 36.6
[2024-05-08 13:03] LABS: Glucose Point of Care 314 mg/dL (70-110)
[2024-05-08 13:41] LABS: Basophils % 0.4 %; Eosinophils # 0.1 10^3/uL (0.0-0.8); Eosinophils % 1.5 %; Hematocrit 47.5 % (37-53); Lymphocytes # 1.6 10^3/uL (0.8-4.8); Lymphocytes % 21.7 %; Mean Corpuscular HGB Conc 34.1 g/dL (30-55); Mean Corpuscular Hemoglobin 29.2 pg (27-33); Mean Corpuscular Volume 85.7 fl (82-101); Mean Platelet Volume 10.5 fL (7.4-10.4); Monocytes # 0.7 10^3/uL (0.2-0.9); Monocytes % 10.4 %; Neutrophils # 4.65 10^3/uL (1.8-7.7); Neutrophils % 65.3 %; Nucleated Red Blood Cells % 0 %; Platelet Count 252 10^3/cmm (157-399); Red Blood Count 5.54 10^6/uL (3.85-5.65); Red Cell Distribution Width 12.2 % (12.1-15.1); White Blood Count 7.13 10^3/uL (3.29-11.43)
[2024-05-08 13:59] LABS: Alanine Aminotransferase 182 U/L (0-41); Albumin Level 4.2 g/dL (3.5-5.2); Alkaline Phosphatase 243 U/L (40-130); Anion Gap 16.2 (5-19); Aspartate Amino Transferase 63 U/L (0-40); Blood Urea Nitrogen 8 mg/dL (6-20); Calcium 9.3 mg/dL (8.5-10.5); Carbon Dioxide 26 mmol/L (22-29); Chloride 96 mmol/L (98-107); Creatinine Clr Calc Pharmacy 173.6446; Globulin 2.9 g/dL (1.3-4.6); Glomerular Filtration Rate 106.5 mL/min (90-130); Glucose 305 mg/dL (65-115); Lipase 44 U/L (13-60); Osmolality Calculated 288 mOsm/kg (285-295); Potassium 4.2 mmol/L (3.5-5.1); Sodium 134 mmol/L (136-145); Total Bilirubin 0.7 mg/dL (0.15-1.2); Total Protein 7.1 g/dL (6.6-8.7)
--- NOTE | 2024-05-08 16:05 | CTR_ITS ---
PROCEDURE INFORMATION: Exam: CT Abdomen And Pelvis With Contrast Exam date and time: 05/08/2024 4:53 PM Age: 43 years old Clinical indication: Abdominal pain; Epigastric; Prior surgery; Surgery date: <1 month; Surgery type: Gb; Additional info: Pod #4 from cholecystectomy; New onset pain last 12 hrs TECHNIQUE: Imaging protocol: Computed tomography of the abdomen and pelvis with contrast. Radiation optimization: All CT scans at this facility use at least one of these dose optimization techniques: automated exposure control; mA and/or kV adjustment per patient size (includes targeted exams where dose is matched to clinical indication); or iterative reconstruction. Contrast material: OMNI 350; Contrast volume: 100 ml; Contrast route: INTRAVENOUS (IV); COMPARISON: CT abdomen pelvis w con* [id number] 04/21/2024 4:09 AM RADIATION DOSE METRICS: Total DLP (mGy-cm): 1229.24 FINDINGS: Liver: Heterogeneous enhancement. No mass. Gallbladder and biliary ducts: Status post cholecystectomy with diffuse gallbladder fossa fat stranding/edema. Common bile duct measures 12 mm. No intrahepatic ductal dilatation. Pancreas: Pancreatic atrophy. Spleen: Splenomegaly. Adrenal glands: Normal. No mass. Kidneys and ureters: 2.1 cm complex cyst versus solid mass of the anterior left kidney. Few bilateral simple cysts. Stomach and bowel: Unremarkable. No obstruction. No mucosal thickening. Appendix: Normal appendix. Intraperitoneal space: Unremarkable. No free air. No significant fluid collection. Vasculature: Unremarkable. No abdominal aortic aneurysm. Lymph nodes: Unremarkable. No enlarged lymph nodes. Urinary bladder: Unremarkable as visualized. Reproductive: Unremarkable as visualized. Bones/joints: Unremarkable. No acute fracture. Soft tissues: Anterior abdominal wall postsurgical change. CT/CT abdomen pelvis w con* [id number] IMPRESSION: 1. Status post cholecystectomy with diffuse gallbladder fossa fat stranding/edema. While this may be postsurgical, biliary ductal injury is not excluded. Consider hepatobiliary scintigraphy or MRCP with [facility]. 2. Complex cyst versus solid mass measuring 2.1 cm at the anterior left kidney. Recommend MRI with contrast for further evaluation.
--- NOTE | 2024-05-08 16:11 | ED_ITS ---
HPI - Abdominal Pain 2 General: Chief Complaint: Abdominal Pain Stated Complaint: abd pain Time Seen by Provider: 05/08/24 15:33 History of Present Illness: 43-year-old male presents emergency depa rtment stating he developed pain in his periumbilical and epigastric region over the last 12 hours. Patient is postoperative day #4 from cholecystectomy. Patient reports the previous 48 hours prior to the onset of this pain, he was doing really well and did not even need to use his pain medication. He reports he has been able to pass some gas. He denies any vomiting. He reports that degree of pain is getting worse. He had a low-grade temperature of 99.5 on arrival and a pulse of 100 bpm. Surgical incisions have remained intact although they are progressing through different stages of bruising. Associated Symptoms: Denies chills, diarrhea, dysuria, fever(s), syncope and vomiting Related Data Home Medications Medication Instructions Recorded Confirmed buspirone 10 mg tablet 10 mg PO QAM 02/24/24 05/08/24 celecoxib 100 mg capsule (Celebrex) 100 mg PO BID pain 05/08/24 05/08/24 levothyroxine 50 mcg tablet 50 mcg PO QAM 05/08/24 05/08/24 metformin 500 mg tablet,extended 500 mg PO QAM diabetes 05/08/24 05/08/24 release 24 hr pantoprazole 40 mg tablet,delayed 40 mg PO QAM acid reflux 05/08/24 05/08/24 release venlafaxine 75 mg capsule,extended 225 mg PO QAM 05/08/24 05/08/24 release 24 hr Previous Rx's Medication Instructions Recorded levetiracetam 750 mg 1,500 mg (2 x 750 mg) PO DAILY 02/24/24 tablet,extended release 24 hr #180 tabs hydrocodone 5 mg-acetaminophen 325 1 tab PO Q6H PRN pain #15 tabs 04/21/24 mg tablet ondansetron HCl 4 mg tablet 4 mg PO Q6H PRN nausea and 04/21/24 vomiting #20 tabs quetiapine 300 mg tablet (Seroquel) 300 mg PO BEDTIME #90 tabs 05/02/24 oxycodone 5 mg tablet 5 mg PO Q6H PRN pain 5 days #10 05/04/24 tabs Allergies Allergy/AdvReac Type Severity Reaction Status Date / Time chlorpromazine Allergy Severe Tongue Verified 05/04/24 06:38 [From Thorazine] swells and difficulty breathing olanzapine [From Zyprexa] Allergy Severe Tongue Verified 05/04/24 06:38 swells and difficulty breathing risperidone [From Risperdal] Allergy Severe Tongue Verified 05/04/24 06:38 swells and difficulty breathing Review of Systems 2 General: Reports: 10 or more systems reviewed and unremarkable except in HPI and below Const: Denies: fever(s), chills or body aches Eyes: Denies: change in vision ENMT: Denies: throat pain Card: Denies: chest pain, edema or syncope Resp: Denies: dyspnea or productive cough GI: Denies: vomiting or diarrhea : Denies: flank pain, dysuria or urinary frequency Musc: Denies: neck pain, back pain, extremity pain or extremity swelling Neuro: Denies: headache(s), numbness in extremities, weakness in extremities, lack of coordination or difficulty walking PFSH ED 2 PFSH: Medical History Secondarily generalized seizures Psychiatric care Hearing loss Chronic otitis media Chronic right shoulder pain Hypothyroidism Asthma GERD (gastroesophageal reflux disease) Anxiety and depression Chronic schizophrenia Surgical History History of esophageal surgery got a quarter stuck in throat as a child S/P tympanostomy tube placement H/O knee surgery Social History Smoking and tobacco/nicotine status: never used tobacco/nicotine Second hand smoke exposure: No Alcohol intake: current Alcohol intake frequency: few times a month Alcohol type: beer and wine Substance/Drug Use: former Date of last use: 2014 Physical Exam 2 Narrative: EXAM NARRATIVE: Awake, alert, conversational, fully oriented. Heelstrike causes pain around the umbilical region. Abdomen is soft and nondistended. Patient has abdominal tenderness primarily in the epigastric and periumbilical region. The right upper quadrant is notably only minimally tender. He has some mild peritonitis although this could be expected after recent surgery. Hypoactive bowel sounds. Incisions are demonstrating expected bruising but are clean and intact. Const: COMMON NORMALS: no limitations, alert and well nourished EXAM LIMITATIONS: no altered mental status HENMT: COMMON NORMALS: normocephalic, atraumatic and external ears normal H EAD & SCALP: normocephalic and atraumatic EXTERNAL EAR: Yes external ears normal MOUTH: no muffled voice Eye: COMMON NORMALS: EOMs intact bilaterally, conjunctivae normal and no scleral icterus CONJUNCTIVA: Yes conjunctivae normal Neck/C-Spine: COMMON NORMALS: no JVD GENERAL: Yes normal visual inspection and Yes trachea midline Resp: COMMON NORMALS: normal respiratory effort and No use of accessory muscles Cardio: COMMON NORMALS: no JVD and regular rhythm RHYTHM: regular rhythm Extremity: COMMON NORMALS: normal to inspection Neuro: COMMON NORMALS: moves all extremities, no focal motor deficits and no sensory deficits noted SENSORIUM/ORIENTATION: Yes alert SPEECH: speech normal Psych: COMMON NORMALS: mental status grossly normal, Normal thought process present, cooperative, normal affect and speech normal SPEECH: Yes normal speech THOUGHT PROCESS: Normal thought process present Course 2 Vital Signs: Vital signs: Vital Signs Temperature 99.5 F 05/08/24 12:41 Pulse Rate 103 H 05/08/24 15:49 Respiratory Rate 16 05/08/24 16:34 Blood Pressure 121/85 05/08/24 18:12 Pulse Oximetry 95 05/08/24 18:12 MDM - Abdominal Pain Medical Decision Making Differential diagnosis includes normal postoperative pain and soreness, ileus, bile leak, retained biliary stone, pancreatitis, hepatitis, constipation, intra- abdominal infection, seroma, other. Patient thinks this is unusual and not simply related to postoperative pain. Will proceed to CT scan the abdomen pelvis, urine analysis, labs. Pain control will be provided. Update: WBC 7 Hgb 16 AST/ALT and Alk phos elevated; t bili okay. Pt's last ast/alt/alk phos were also elevated on 04/21. Lipase normal CT scan showed some inflammation in the gallbladder fossa. No fluid collections. No free air. Incidental complex cyst for solid mass in the left kidney. Discussed with Dr. Call. He reports patient could be admitted for observation or be discharged with return precautions. Neither Dr. Call nor myself believe that this is likely to be a bile leak. After pain medication, the patient's heart rates in the 80s, he is in no distress, he is playing on his phone and reports he feels much better. I think he had postoperative pain that was uncontrolled since he was not taking anything for it. Patient given the option to be admitted for observation and trending of vital signs versus discharge to home with return precautions. He is comfortable going home. Therefore I have instructed him to take his oxycodone every 6 hours and to use some sort of an NSAID for supplementary pain control. I have given him specific return precautions. I also discussed the incidental finding on his left kidney and recommended that he do a nonemergent follow-up for further evaluation. Patient agreed. Lab Data 05/08/24 13:35 05/08/24 13:35 Labs/Radiology: Radiology Impressions Abdomen/Pelvis CT 05/08/24 16:05 IMPRESSION: 1. Status post cholecystectomy with diffuse gallbladder fossa fat stranding/edema. While this may be postsurgical, biliary ductal injury is not excluded. Consider hepatobiliary scintigraphy or MRCP with [facility]. 2. Complex cyst versus solid mass measuring 2.1 cm at the anterior left kidney. Recommend MRI with contrast for further evaluation. Laboratory Results WBC 7.13 10^3/uL (3.29-11.43) 05/08/24 13:35 RBC 5.54 10^6/uL (3.85-5.65) 05/08/24 13:35 Hgb 16.20 g/dL (11.27-16.99) 05/08/24 13:35 Hct 47.5 % (37-53) 05/08/24 13:35 MCV 85.7 fl (82-101) 05/08/24 13:35 MCH 29.2 pg (27-33) 05/08/24 13:35 MCHC 34.1 g/dL (30-55) 05/08/24 13:35 RDW 12.2 % (12.1-15.1) 05/08/24 13:35 Plt Count 252 10^3/cmm (157-399) 05/08/24 13:35 MPV 10.5 fL (7.4-10.4) H 05/08/24 13:35 Neut % (Auto) 65.3 % 05/08/24 13:35 Lymph % (Auto) 21.7 % 05/08/24 13:35 [place] % (Auto) 10.4 % 05/08/24 13:35 Eos % (Auto) 1.5 % 05/08/24 13:35 Baso % (Auto) 0.4 % 05/08/24 13:35 Neut # (Auto) 4.65 10^3/uL (1.8-7.7) 05/08/24 13:35 Lymph # (Auto) 1.6 10^3/uL (0.8-4.8) 05/08/24 13:35 [place] # (Auto) 0.7 10^3/uL (0.2-0.9) 05/08/24 13:35 Eos # (Auto) 0.1 10^3/uL (0.0-0.8) 05/08/24 13:35 Baso # (Auto) 0.0 10^3/uL (0.0-0.1) 05/08/24 13:35 Nucleated RBC % (auto) 0 % 05/08/24 13:35 Nucleated RBCs # 0.0 /100WBC 05/08/24 13:35 Sodium 134 mmol/L (136-145) L 05/08/24 13:35 Potassium 4.2 mmol/L (3.5-5.1) 05/08/24 13:35 Chloride 96 mmol/L (98-107) L 05/08/24 13:35 Carbon Dioxide 26 mmol/L (22-29) 05/08/24 13:35 Anion Gap 16.2 (5-19) 05/08/24 13:35 BUN 8 mg/dL (6-20) 05/08/24 13:35 Creatinine 0.8 mg/dL (0.7-1.2) 05/08/24 13:35 GFR Calculation 106.5 mL/min (90-130) 05/08/24 13:35 Glucose 305 mg/dL (65-115) H 05/08/24 13:35 POC Glucose 314 mg/dL (70-110) H 05/08/24 12:48 Calculated Osmolality 288 mOsm/kg (285-295) 05/08/24 13:35 Calcium 9.3 mg/dL (8.5-10.5) 05/08/24 13:35 Total Bilirubin 0.7 mg/dL (0.15-1.2) 05/08/24 13:35 AST 63 U/L (0-40) H 05/08/24 13:35 ALT 182 U/L (0-41) H 05/08/24 13:35 Alkaline Phosphatase 243 U/L (40-130) H 05/08/24 13:35 Total Protein 7.1 g/dL (6.6-8.7) 05/08/24 13:35 Albumin 4.2 g/dL (3.5-5.2) 05/08/24 13:35 Globulin 2.9 g/dL (1.3-4.6) 05/08/24 13:35 Lipase 44 U/L (13-60) 05/08/24 13:35 Urine Color [place] (Yellow) A 05/08/24 16:10 Urine Appearance Cloudy (CLEAR) A 05/08/24 16:10 Urine pH 5.0 (5-7) 05/08/24 16:10 Ur Specific [place] 1.038 (1.005-1.030) H 05/08/24 16:10 Urine Protein 1+ (Negative) A 05/08/24 16:10 Urine Glucose (UA) 3+ (Normal) H 05/08/24 16:10 Urine Ketones Negative (Negative) 05/08/24 16:10 Urine Blood Negative (Negative) 05/08/24 16:10 Urine Nitrate Negative (Negative) 05/08/24 16:10 Urine Bilirubin 1+ (Negative) H 05/08/24 16:10 Urine Urobilinogen 1.0 mg/dL (Negative) 05/08/24 16:10 Ur Leukocyte Esterase Trace (Negative) A 05/08/24 16:10 Urine RBC 0-2 /hpf (0-2) 05/08/24 16:10 Urine WBC 0-5 /hpf (0-5) 05/08/24 16:10 Ur Squamous Epith Cells 0-5 /hpf (0-5) 05/08/24 16:10 Amorphous Sediment Not Reportable 05/08/24 16:10 Urine Bacteria None seen /hpf (NONE) 05/08/24 16:10 Hyaline Casts 2.87 /lpf 05/08/24 16:10 All radiology interpretation(s) finalized by discharge Discharge Plan Discharge Patient Disposition: Home Clinical Impression: Post-operative pain, Status post cholecystectomy, Kidney lesion, poarch, left Condition: Stable Prescriptions: No Action buspirone 10 mg tablet 10 mg PO QAM levetiracetam 750 mg tablet extended release 24 hr 1,500 mg PO DAILY Qty: 180 3RF Seroquel 300 mg tablet 300 mg PO BEDTIME Qty: 90 0RF venlafaxine 75 mg capsule,extended release 24hr 225 mg PO QAM MDD 3 tablets levothyroxine 50 mcg tablet 50 mcg PO QAM pantoprazole 40 mg tablet,delayed release (DR/EC) 40 mg PO QAM celecoxib [Celebrex] 100 mg capsule 100 mg PO BID metformin 500 mg tablet extended release 24 hr 500 mg PO QAM hydrocodone-acetaminophen 5-325 mg tablet 1 tab PO Q6H PRN (Reason: pain) Qty: 15 0RF ondansetron HCl 4 mg tablet 4 mg PO Q6H PRN (Reason: nausea and vomiting) Qty: 20 0RF oxycodone 5 mg tablet 5 mg PO Q6H PRN (Reason: pain) 5 Days Qty: 10 0RF Discharge Orders: Discharge ED (Routine); Ordered 05/08/24 Ordered By: Dario Flores Referrals: Rebeca Joy PA [Primary Care Provider] - Discharge Diet: Advance as tolerated Discharge Activity: Increase activity as tolerated Patient Instructions: Abdominal Pain (ED), Opioid Safety, Pain Management Activity Restrictions/Additional Instructions: 1. Take oxycodone every 6 hours as needed for pain. You may also take celecoxib or ibuprofen for pain control. 2. Return to the emergency department if you have fever, inability to pass gas, increasing pain, abdominal distention, yellowing of the skin, or other emergent symptoms. 3. You had an area on your left kidney that appears to be like a complex cyst. However, you need to have a nonemergent outpatient MRI of the kidneys to make sure this is nothing dangerous. Please talk to your primary care doctor or surgeon about getting the MRI ordered. Coding Level of Care Code ED Checker/Stocker for Bob Arevalo
[2024-05-08 16:20] LABS: Bilirubin Urine 1+ (Negative); Blood Urine Negative (Negative); Glucose Urine UA 3+ (Normal); Ketones Urine Negative (Negative); Leukocyte Esterase Urine Trace (Negative); Nitrate Urine Negative (Negative); Protein Urine 1+ (Negative); Urine Appearance Cloudy (CLEAR)
[2024-05-08 16:23] LABS: Add Urine Microscopic? YES; Bacteria Urine None Seen /hpf; Hyaline Casts Urine 2.87 /lpf; RBC Urine 0-2 /hpf (0-2); Squamous Epithelial Cell Urine 0-5 /hpf (0-5); WBC Urine 0-5 /hpf (0-5)
[2024-05-08] MEDS: HYDROmorphone 1 mg/mL INJ 1 mL IVP (16:27)
[2024-05-08] MEDS: ondansetron 2 mg/ML SDV 2 mL 4 MG IVP (16:27)
[2024-05-08 16:30] LABS: Specific Gravity, Urine 1.038 (1.005-1.030); Urine Color Orange (Yellow)
[2024-05-08] MEDS: iohexol 350 mg/mL 500 mL Btl (per mL) IV (16:58)
[2024-05-08] MEDS: ketorolac 30 mg/mL INJ 15 MG IVP (19:49)
[2024-05-08] MEDS: acetaminophen 500 mg Tablet PO (19:49)
[2024-05-08] MEDS: piperacillin-tazobactam 3.375 GM in sodium chloride 0.9% (plus) 50 ML IV (19:49)
== END 2024-05-08 20:34 | disposition home or self-care (01) ==
PROVIDERS: Emergency Provider Emergency Medicine; PCP Physician Assistant
DX: N28.9 Disorder of kidney and ureter, unspecified (principal); G89.18 Other acute postprocedural pain; Z90.49 Acquired absence of other specified parts of digestive tract; Z79.84 Long term (current) use of oral hypoglycemic drugs
CPT/HCPCS: 36415; 36416; 74177; 80053; 81001; 82962; 83690; 85025; 96365; 96375; 99285; J1171; J1885; J2405; J2543

== ENCOUNTER → 2024-05-12 08:01 | Outpatient (BNVA) | payer MEDICARE, MEDICAID, SELFPAY | PROVIDERS: PCP Physician Assistant; Visit Provider Student in an Organized Health Care Education/Training Program | DX: Z90.49 Acquired absence of other specified parts of digestive tract (principal); Z98.890 Other specified postprocedural states | CPT/HCPCS: 99024 ==

== ENCOUNTER 2024-09-14 10:34 | Outpatient (RCR) | payer MEDICARE, MEDICAID, SELFPAY ==
[2024-05-30 15:41] VITALS: BP 132/87; BMI 35.0
== END 2024-10-10 11:24 | disposition home or self-care (01) ==
LOC: SPT 10:34
PROVIDERS: Visit Provider Physician Assistant
DX: M54.2 Cervicalgia (principal)
CPT/HCPCS: 97110; 97162

== ENCOUNTER 2024-09-28 17:49 | Emergency (ER) | payer MEDICARE, MEDICAID, SELFPAY ==
[2024-05-30 15:41] VITALS: BP 132/87; BMI 35.0
[2024-09-28 17:51] VITALS: BP 127/99; PULSE 98; RESP 16; TEMP 36.8; O2SAT 97; BMI 35.3
--- NOTE | 2024-09-28 17:55 | W.ED.GENADLT ---
HPI - General Adult General: Chief complaint: Back Pain/Injury Stated complaint: Back/ Neck pain Time Seen by Provider: 09/28/24 17:50 Source: patient and EMS Mode of arrival: EMS Limitations: no limitations History of Present Illness: 43-year-old male states that he was diving diving board and slipped he states he had hit his leg on the diving board he has some left lower leg pain he rates 6 out of 10 states had a history of cervical fusion some slight neck pain and a headache as well he denies any back abdomen or chest pain to me. He did ambulate after the event. Associated symptoms: Reports headache(s); Deny chest pain, dyspnea, nausea, rash or vomiting Related Data Home Medications ?Medication ?Instructions ?Recorded ?Confirmed levothyroxine 50 mcg tablet 50 mcg PO QAM 05/08/24 09/16/24 metformin 500 mg tablet,extended 500 mg PO QAM diabetes 05/08/24 09/16/24 release 24 hr pantoprazole 40 mg tablet,delayed 40 mg PO QAM acid reflux 05/08/24 09/16/24 release celecoxib 100 mg capsule (Celebrex) 200 mg PO BID pain 08/16/24 09/16/24 Previous Rx's ?Medication ?Instructions ?Recorded venlafaxine 150 mg 150 mg PO DAILY #30 caps 05/19/24 capsule,extended release 24 hr (Effexor XR) levetiracetam 750 mg 750 mg PO DAILY #90 tabs 05/20/24 tablet,extended release 24 hr quetiapine 300 mg tablet (Seroquel) 300 mg PO .HS #30 tabs 09/16/24 naproxen 500 mg tablet (Naprosyn) 500 mg PO BID PRN pain #20 tabs 09/28/24 Allergies Allergy/AdvReac Type Severity Reaction Status Date / Time chlorpromazine (From Allergy Severe Tongue Verified 08/16/24 12:22 Thorazine) swells and difficulty breathing olanzapine (From Zyprexa) Allergy Severe Tongue Verified 08/16/24 12:22 swells and difficulty breathing risperidone (From Risperdal) Allergy Severe Tongue Verified 08/16/24 12:22 swells and difficulty breathing Review of Systems Const: Denies: fever(s), chills, body aches or change in appetite Eyes: Denies: blurry vision or eye discomfort ENMT: Denies: throat pain or dental pain Card: Denies: chest pain Resp: Denies: dyspnea GI: Denies: abdominal pain, nausea, vomiting or diarrhea Musc: Reports: neck pain and extremity pain; Denies: back pain Skin/Breast: Denies: rash Neuro: Reports: headache(s) Psych: Denies: depression PFSH ED PFSH: Medical History Secondarily generalized seizures Psychiatric care Hearing loss Chronic otitis media Chronic right shoulder pain Hypothyroidism Asthma GERD (gastroesophageal reflux disease) Anxiety and depression Chronic schizophrenia Surgical History History of esophageal surgery got a quarter stuck in throat as a child S/P tympanostomy tube placement H/O knee surgery Social History (Updated 05/26/24 @ 12:18 by Sophie Duke LPN) Smoking and tobacco/nicotine status: never used tobacco/nicotine Second hand smoke exposure: No Alcohol intake: current Alcohol intake frequency: few times a month Alcohol type: beer and wine Substance/Drug Use: former Date of last use: 2014 Adopted: No Caregiver/support person: No Lives independently: No Household members: none Housing: Apartment Marital status: Single Highest education level completed: 8th Grade service: No Current occupational status: disabled Pets and animals: Yes Pets & animals: dog(s) Leisure activites: art, music, games and other Leisure activities details: movies Sexually active: No Do you think of yourself as: Straight/Heterosexual Current gender identity: Female Jenny/Anabaptism: Nondenominational Special jenny needs: No Agree to transfusion: Yes Physical Exam Const: COMMON NORMALS: no acute distress, patient oriented x3 and healthy appearing HENMT: COMMON NORMALS: normocephalic and atraumatic HEAD & SCALP: normocephalic and atraumatic Eye: COMMON NORMALS: Equal, round and reactive pupils present and EOMs intact bilaterally PUPIL: Yes Equal, round and reactive pupils present Neck/C-Spine: OTHER: in c collar Chest: COMMONS NORMALS: normal inspection of the chest and normal palpation of entire chest wall Resp: COMMON NORMALS: normal respiratory effort, No retractions, No use of accessory muscles and clear to auscultation bilaterally AUSCULTATION: clear to auscultation bilaterally Cardio: COMMON NORMALS: regular rate, regular rhythm and No murmurs present (Cardio) RATE: regular rate RHYTHM: regular rhythm GI: COMMON NORMALS: Normal to inspection, nondistended, normoactive bowel sounds present, Soft to palpation, non-tender and no masses PALPATION: Yes Soft to palpation Extremity: NARRATIVE EXTREMITY EXAM: Tenderness noted to the left lower leg no obvious deformities distal pulses sensation intact Neuro: COMMON NORMALS: patient oriented x3, moves all extremities and no focal motor deficits Psych: COMMON NORMALS: mental status grossly normal, Normal thought process present and cooperative THOUGHT PROCESS: Normal thought process present Skin: COMMON NORMALS: no rashes or lesions noted and no wounds GENERAL SKIN EXAM: no rashes or lesions noted Course Vital Signs: Vital signs: Vital Signs Temperature 98.2 F 09/28/24 17:51 Pulse Rate 98 09/28/24 17:51 Respiratory Rate 16 09/28/24 17:51 Blood Pressure 108/81 09/28/24 19:14 Pulse Oximetry 95 09/28/24 19:14 Oxygen Delivery Me thod Room Air 09/28/24 17:51 MDM - General Adult Medical Decision Making Patient presents with leg pain neck pain after a fall likely leg contusion imaging here is negative no signs of fractures he stable for discharge follow-up PCP return if worsening. Lab Data Radiology Impressions Cervical Spine CT 09/28/24 17:56 IMPRESSION: No acute cervical spine fracture. Head CT 09/28/24 17:56 IMPRESSION: No acute intracranial abnormality. Tibia/Fibula X-Ray 09/28/24 17:56 IMPRESSION: No acute findings. All radiology interpretation(s) finalized by discharge Discharge Plan Discharge Patient Disposition: Home Clinical Impression: Contusion of left leg, Fall Condition: Stable Prescriptions: New naproxen [Naprosyn] 500 mg tablet 500 mg PO BID PRN (Reason: pain) Qty: 20 0RF No Action venlafaxine [Effexor XR] 150 mg capsule,extended release 24hr 150 mg PO DAILY Qty: 30 11RF quetiapine [Seroquel] 300 mg tablet 300 mg PO .HS Qty: 30 11RF levetiracetam 750 mg tablet extended release 24 hr 750 mg PO DAILY Qty: 90 3RF levothyroxine 50 mcg tablet 50 mcg PO QAM pantoprazole 40 mg tablet,delayed release (DR/EC) 40 mg PO QAM metformin 500 mg tablet extended release 24 hr 500 mg PO QAM celecoxib [Celebrex] 100 mg capsule 200 mg PO BID Discharge Orders: Discharge ED (Routine); Ordered 09/28/24 Ordered By: Lachelle Galeas Referrals: Rebeca Joy PA [Primary Care Provider, [facility]] - 4-7 days Discharge Diet: Advance as tolerated Discharge Activity: Resume usual activity Patient Instructions: Opioid Safety, Pain Management Print Language: [place] Coding Level of Care Code ED Yard Driver for Bob Arevalo
--- NOTE | 2024-09-28 17:56 | CTR_ITS ---
PROCEDURE INFORMATION: Exam: CT Head Without Contrast Exam date and time: 09/28/2024 6:41 PM Age: 43 years old Clinical indication: Injury or trauma; Fall; Blunt trauma (contusions or hematomas); Without loss of consciousness TECHNIQUE: Imaging protocol: Computed tomography of the head without contrast. Radiation optimization: All CT scans at this facility use at least one of these dose optimization techniques: automated exposure control; mA and/or kV adjustment per patient size (includes targeted exams where dose is matched to clinical indication); or iterative reconstruction. COMPARISON: CT head wo con* [id number] 01/08/2022 1:05 PM RADIATION DOSE METRICS: Total DLP (mGy-cm): 1183.3 FINDINGS: Brain: Normal. No hemorrhage. Unremarkable white matter. No mass effect. Cerebral ventricles: No ventriculomegaly. Paranasal sinuses: Visualized sinuses are unremarkable. No fluid levels. Mastoid air cells: Visualized mastoid air cells are well aerated. Bones: Unremarkable. No acute fracture. Soft tissues: Unremarkable. CT/CT head wo con* [id number] IMPRESSION: No acute intracranial abnormality.
--- NOTE | 2024-09-28 17:56 | CTR_ITS ---
PROCEDURE INFORMATION: Exam: CT Cervical Spine Without Contrast Exam date and time: 09/28/2024 6:41 PM Age: 43 years old Clinical indication: Injury or trauma; Fall; Blunt trauma; Prior surgery; Surgery date: 6+ months; Surgery type: Cspine fusion TECHNIQUE: Imaging protocol: Computed tomography of the cervical spine without contrast. Radiation optimization: All CT scans at this facility use at least one of these dose optimization techniques: automated exposure control; mA and/or kV adjustment per patient size (includes targeted exams where dose is matched to clinical indication); or iterative reconstruction. COMPARISON: MR cervical spin wo con* [id number] 02/26/2022 1:09 PM RADIATION DOSE METRICS: Total DLP (mGy-cm): 283.1 FINDINGS: Bones: The vertebral body stature is intact. No fracture or subluxation. Anterior mechanical fusion with spacers at C3-C4 through C6-C7. Posterior endplate and uncovertebral spurring at C3-C4, C5-C6, and C6-C7. Mild-moderate spinal canal stenosis at C3-C4, C5-C6, and C6-C7. Bilateral multilevel mild bony neural foraminal narrowing. Lungs: Lung apices are normal. Soft tissues: Unremarkable. CT/CT cervical spin wo con* [id number] IMPRESSION: No acute cervical spine fracture.
--- NOTE | 2024-09-28 17:56 | XRR_ITS ---
PROCEDURE INFORMATION: Exam: XR Left Tibia and Fibula Exam date and time: 09/28/2024 6:29 PM Age: 43 years old Clinical indication: Injury or trauma; Other: Slipped on diving board; Blunt trauma; Lower leg; Left TECHNIQUE: Imaging protocol: Radiologic exam of the left tibia and fibula. Views: 2 views. COMPARISON: CR XR foot LT min 3V* [id number] 11/10/2019 2:26 PM FINDINGS: Bones/joints: The bones are intact. No fracture. Degenerative changes in the knee. Soft tissues: Normal. XR/XR tibia fibula LT 2V [id number] IMPRESSION: No acute findings.
[2024-09-28 19:14] VITALS: BP 108/81; O2SAT 95
[2024-09-28 19:37] VITALS: BP 145/91; PULSE 86; RESP 18; O2SAT 96
== END 2024-09-28 19:38 | disposition home or self-care (01) ==
PROVIDERS: Emergency Provider Emergency Medicine; PCP Physician Assistant
DX: S80.12XA Contusion of left lower leg, initial encounter (principal); W01.198A Fall on same level from slipping, tripping and stumbling with subsequent striking against other object, initial encounter; Z79.84 Long term (current) use of oral hypoglycemic drugs
CPT/HCPCS: 70450; 72125; 73590; 99284

== ENCOUNTER → 2025-04-04 11:35 | Outpatient (BNVA) | payer OTHER, SELFPAY ==
[2024-05-30 15:41] VITALS: BP 132/87; BMI 35.0
== END ==
PROVIDERS: PCP Physician Assistant; Visit Provider Psychiatry & Neurology Psychiatry
DX: F31.9 Bipolar disorder, unspecified (principal); Z79.899 Other long term (current) drug therapy
CPT/HCPCS: 80061; 83036